=== PATIENT | female | born 1940 | race Caucasian/White ===

== ENCOUNTER → 2018-12-25 | Outpatient (CLI) | payer MEDICARE ==
[~2018-12-25] MED LIST: BACL10; CHOL10002 PO; CONEST.625; CYCL10 PO; DILT120 PO; FISH1000; Hydrocodone-Ap1 EA26 PO; LOSA50 PO; MULVITMINF; NIAC500; OMEP20ER PO; PARO20; Premarin0.45 MG PO; RANI150 PO; SIMV10 PO
== END | disposition home or self-care (01) ==
LOC: LAB EV 15:00 → LAB SHORT 15:00
DX: N39.0 Urinary tract infection, site not specified (principal)
CPT/HCPCS: 87086

== ENCOUNTER 2019-05-21 07:28 | Day surgery (SDC) | payer MEDICARE ==
[2019-05-23 15:02] LABS: Performing Lab SYMBIODX; Test Name TISSUE BLOCK
== END 2019-05-21 23:16 | disposition home or self-care (01) ==
LOC: MOI US 07:28
PROVIDERS: Advanced Practice Midwife
DX: C50.912 Malignant neoplasm of unspecified site of left female breast (principal); Z17.0 Estrogen receptor positive status [ER+]
CPT/HCPCS: 19083; 77065; 88305; 88360; A4648

== ENCOUNTER 2019-06-19 08:33 | Day surgery (SDC) | payer MEDICARE ==
[~2019-06-19] VITALS: Ht 165.1 cm; Wt 59.8 kg
[~2019-06-19 08:33] MED LIST changes: -BACL10; +BACL10 PO; +DULOXETINE HCL20 MG PO; -RANI150 PO; +STOOL SOFTENER PO; +Zantac150 MG PO
--- NOTE | 2019-06-19 09:57 | NUR ---
History, Chart, Medications and Allergies reviewed before start of procedure. Patient confirms NPO status and agrees with scheduled surgery. Lungs clear T/O to Auscultation. Pre-Op teaching done. Pt verbalizes understanding. Patient reports completing Chlorhexadine shower X2 prior to admission to hospital. Patient States Post-Procedure ride home has been arranged.
--- NOTE | 2019-06-19 09:58 | NUR ---
PATIENT LEFT GLASSES AND PARTIAL AT HOME, PER HER REPORT.
--- NOTE | 2019-06-19 10:47 | NUR ---
PATIENT UP FOR UNMEASURED VOID.
--- NOTE | 2019-06-19 12:54 | NUR ---
Patient up to Ambulate independently. Gait steady. Discharge instructions reviewed with patient. Patient verbalizes understanding. Copy given to patient to take home.Lungs clear T/O to Auscultation. Discharged via wheelchair to private car for ride home.
== END 2019-06-19 13:06 | disposition home or self-care (01) ==
LOC: ORSCMMR 08:33
PROVIDERS: Surgery
PROC: 0JH60WZ Insertion of Totally Implantable Vascular Access Device into Chest Subcutaneous Tissue and Fascia, Open Approach (ICD-10-PCS; principal; 2019-06-19 10:45)
DX: C50.412 Malignant neoplasm of upper-outer quadrant of left female breast (principal); E78.5 Hyperlipidemia, unspecified; I10 Essential (primary) hypertension; R73.9 Hyperglycemia, unspecified; K21.9 Gastro-esophageal reflux disease without esophagitis; Z79.899 Other long term (current) drug therapy
CPT/HCPCS: 77001; 93005; 93010; A9270-GY; C1788; J0690; J1100; J1642; J2405; J2704; J3010; J7120

== ENCOUNTER 2019-11-09 07:29 | Day surgery (SDC) | payer MEDICARE | END 2019-11-09 23:31 | disposition home or self-care (01) | LOC: MOI US 07:29 | DX: C50.412 Malignant neoplasm of upper-outer quadrant of left female breast (principal) | CPT/HCPCS: 19285; 77065 ==

== ENCOUNTER 2020-07-16 10:43 | Inpatient (IN) | payer MEDICARE ==
[~2020-07-16] VITALS: Ht 165.1 cm; Wt 54.4 kg
[~2020-07-16 10:43] MED LIST changes: -CHOL10002 PO; +OLAN5; +Questran4 GM; +VITAMIN D31000 UNI1 PO
[2020-07-16 11:43] LABS: BASOPHILS ABSOLUTE AUTO 0.05 K/mm3 (0.00-0.23); BASOPHILS PERCENT AUTO 0 % (0-2); EOSINOPHILS ABSOLUTE AUTO 0.19 K/mm3 (0.00-0.68); EOSINOPHILS PERCENT AUTO 1 % (0-6); Hematocrit 32.4 % (33.0-51.0); Hemoglobin 10.6 g/dL (11.5-16.0); IMMATURE GRAN PERCENT AUTO 2 % (0-1); LYMPHOCYTES PERCENT AUTO 7 % (21-46); MONOCYTES ABSOLUTE AUTO 1.55 K/mm3 (0.16-1.47); MONOCYTES PERCENT AUTO 8 % (4-13); Mean Corpuscular HGB 32.7 pg (26.0-34.0); Mean Corpuscular HGB Conc 32.7 g/dL (31.5-36.5); Mean Corpuscular Volume 100 fL (80-100); Mean Platelet Volume 9.1 fL (9.1-12.4); NEUTROPHILS ABSOLUTE AUTO 15.08 K/mm3 (1.96-9.15); NEUTROPHILS PERCENT AUTO 82 % (41-73); Platelet Count 542 K/mm3 (150-400); RDW Standard Deviation 44.7 fL (35.1-46.3); Red Blood Cell Count 3.24 M/mm3 (3.80-5.20); White Blood Cell Count 18.37 K/mm3 (4.00-11.30)
[2020-07-16 12:15] LABS: Alanine Aminotransfer (ALT/SGP 79 U/L (12-78); Albumin, Blood 2.2 g/dL (3.4-5.0); Albumin/Globulin Ratio 0.4 (0.8-1.8); Alk Phos 177 U/L (50-136); Anion Gap 8 mmol/L (6-16); Aspartate Aminotrans (AST/SGOT 64 U/L (12-37); Bilirubin, Total 0.3 mg/dL (0.1-1.0); Blood Urea Nitrogen 18 mg/dL (8-24); Bun/Creatinine Ratio 22.2 (12.0-20.0); CO2, Blood 26 mmol/L (21-32); Calcium, Blood 9.3 mg/dL (8.5-10.1); Chloride, Blood 98 mmol/L (98-108); Creatinine, Blood 0.81 mg/dL (0.40-1.00); Globulin, Blood 5.4 g/dL (2.2-4.0); Glomerular Filtration Rate >60 (60-); Glucose, Blood 127 mg/dL (70-99); Sodium, Blood 132 mmol/L (136-145); Total Protein, Blood 7.6 g/dL (6.4-8.2)
[2020-07-16 13:09] LABS: Influenza A, PCR Negative (NEGATIVE); Influenza B, PCR Negative (NEGATIVE); Resp Syncytial Virus, PCR Negative (NEGATIVE); SARS-Cov-2 (COVID-19) PCR, MMC Negative (NEGATIVE)
[2020-07-16] MEDS ORDERED: ARIMIDEX1 M1 PO (13:40)
[2020-07-16] MEDS ORDERED: HYDROCODONE-AC1 EA10 PO (13:40)
[2020-07-16] MEDS ORDERED: CYMBALTA30 M1 PO (13:41)
[2020-07-16] MEDS ORDERED: FAMO20 PO (13:41)
--- NOTE | 2020-07-16 18:47 | NUR ---
ASSUMED CARE FROM DEGREASING WHEEL OPERATOR PT ARRIVED ON PCU AT APPROXIMATELY 1800. PT WAS ABLE TO AMBULATE TO THE BATHROOM WITH O2 AT 3L AND WITH EXTENSION CANNULA ATTACHED. PT WAS SOB WHEN RETURNING TO BED AND REQUIRED 5L OF O2 VIA NC TO RECOVER. PT IS NO STABLE SATS MAINTAINED AT 94% AND ABOVE ON 3L VIA NC. VS STABLE. LUNGS ARE CLEAR IN UPPER LOBES AND DIMINISHED BILATERAL LOWER LOBES. PT HAS FINISHED THE 500ML NS BOLUS AND IS NOW SALINE LOCKED. NO VISIBLE EDEMA. 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 PT HAS HISTORY OF BREAST CANCER AND FINISHED TREATMENT 2 WEEKS AGO. PT IS NOW RESTING IN BED
[2020-07-17 04:09] LABS: Hematocrit 33.4 % (33.0-51.0); Hemoglobin 10.5 g/dL (11.5-16.0); Mean Corpuscular HGB 31.9 pg (26.0-34.0); Mean Corpuscular HGB Conc 31.4 g/dL (31.5-36.5); Mean Corpuscular Volume 102 fL (80-100); Mean Platelet Volume 9.4 fL (9.1-12.4); Platelet Count 537 K/mm3 (150-400); RDW Coefficient Variation 12.1 % (11.7-14.2); RDW Standard Deviation 45.1 fL (35.1-46.3); Red Blood Cell Count 3.29 M/mm3 (3.80-5.20); White Blood Cell Count 14.75 K/mm3 (4.00-11.30)
[2020-07-17 04:53] LABS: Anion Gap 6 mmol/L (6-16); Blood Urea Nitrogen 13 mg/dL (8-24); Bun/Creatinine Ratio 20.8 (12.0-20.0); CO2, Blood 30 mmol/L (21-32); Chloride, Blood 100 mmol/L (98-108); Creatinine, Blood 0.63 mg/dL (0.40-1.00); Glomerular Filtration Rate >60 (60-); Glucose, Blood 100 mg/dL (70-99); Potassium, Blood 3.8 mmol/L (3.5-5.5); Sodium, Blood 136 mmol/L (136-145)
--- NOTE | 2020-07-17 05:33 | NUR ---
SHIFT SUMMARY NO ACUTE CHANGES THIS SHIFT. PT A&OX4. SP02>92% ON 3L NC. PT AMBULATED TO BATHROOM BEGINNING OF SHIFT AND WAS SOB, REQUIRING 4L NC TO RECOVER. SWITCHED PT TO BSC W/ SBA W/ NO NEED FOR AN INCREASE OF O2. TELEMETRY READS SR W/ PACS, HR 70'S. PT C/O OF 9/10 CHRONIC BACK PAIN FROM HX OF FX, PT STATES SHE TAKES NORCO AT HOME. CALL PLACED TO MD MCDONOUGH. MD MCDONOUGH W/ ORDERS FOR NORCO, SEE EMAR. PT DID C/O OF DIARRHEA ONCES THIS SHIFT. STATES IT IS A SIDE EFFECT OF HER CANCER TREATMENT AND THAT SHE TAKES A MEDICATION FOR IT, BUT DID NOT KNOW WHAT IT WAS CALLED. PT STATED HER WOULD BRING IT IN IN THE AM. PT DID NOT SLEEP MUCH DURING THE NIGHT, JUST RESTED IN BED, AWAKE. CALL LIGHT IN REACH. WILL GIVE REPORT TO ONCOMING NURSE.
--- NOTE | 2020-07-17 18:25 | NUR ---
SHIFT SUMMARY- PT IS A/O, PLESANT AND COOPERATIVE. SHE IS EATING AND DRINKING WELL. SHE IS USING THE BSC. SHE WORKED WITH PT AND OT THIS SHIFT AND TOLERATED WELL. SHE IS RECIEVING 3L O2 AND MAINTAINING HER SATS. SHE RECIEVED ONE DOSE OF PAIN MEDICATION THIS SHIFT. SHE HAD A VISITOR THIS AFTERNOON.
--- NOTE | 2020-07-17 19:26 | NUR ---
BROUGHT IN HOME MEDICATION. SHE TOOK ONE FOR DIARRHEA. CALLED TO NOTIFY.
[2020-07-18 04:29] LABS: BASOPHILS ABSOLUTE AUTO 0.05 K/mm3 (0.00-0.23); BASOPHILS PERCENT AUTO 0 % (0-2); EOSINOPHILS ABSOLUTE AUTO 0.35 K/mm3 (0.00-0.68); EOSINOPHILS PERCENT AUTO 2 % (0-6); Hematocrit 30.7 % (33.0-51.0); Hemoglobin 9.9 g/dL (11.5-16.0); IMMATURE GRAN ABSOLUTE AUTO 0.17 K/mm3 (0.00-0.10); IMMATURE GRAN PERCENT AUTO 1 % (0-1); LYMPHOCYTES ABSOLUTE AUTO 1.29 K/mm3 (0.84-5.20); LYMPHOCYTES PERCENT AUTO 9 % (21-46); MONOCYTES ABSOLUTE AUTO 1.39 K/mm3 (0.16-1.47); MONOCYTES PERCENT AUTO 9 % (4-13); Mean Corpuscular HGB 32.4 pg (26.0-34.0); Mean Corpuscular HGB Conc 32.2 g/dL (31.5-36.5); Mean Corpuscular Volume 100 fL (80-100); Mean Platelet Volume 9.6 fL (9.1-12.4); NEUTROPHILS ABSOLUTE AUTO 11.97 K/mm3 (1.96-9.15); NEUTROPHILS PERCENT AUTO 79 % (41-73); Platelet Count 490 K/mm3 (150-400); RDW Coefficient Variation 12.3 % (11.7-14.2); RDW Standard Deviation 45.5 fL (35.1-46.3); Red Blood Cell Count 3.06 M/mm3 (3.80-5.20); White Blood Cell Count 15.22 K/mm3 (4.00-11.30)
[2020-07-18 04:54] LABS: Alanine Aminotransfer (ALT/SGP 71 U/L (12-78); Albumin, Blood 1.9 g/dL (3.4-5.0); Albumin/Globulin Ratio 0.4 (0.8-1.8); Alk Phos 159 U/L (50-136); Anion Gap 6 mmol/L (6-16); Aspartate Aminotrans (AST/SGOT 60 U/L (12-37); Bilirubin, Total 0.4 mg/dL (0.1-1.0); Blood Urea Nitrogen 11 mg/dL (8-24); Bun/Creatinine Ratio 17.5 (12.0-20.0); CO2, Blood 29 mmol/L (21-32); Calcium, Blood 8.9 mg/dL (8.5-10.1); Chloride, Blood 101 mmol/L (98-108); Creatinine, Blood 0.63 mg/dL (0.40-1.00); Globulin, Blood 5.3 g/dL (2.2-4.0); Glomerular Filtration Rate >60 (60-); Glucose, Blood 99 mg/dL (70-99); Potassium, Blood 4.4 mmol/L (3.5-5.5); Sodium, Blood 136 mmol/L (136-145); Total Protein, Blood 7.2 g/dL (6.4-8.2)
--- NOTE | 2020-07-18 05:09 | NUR ---
SHIFT SUMMARY NO ACUTE CHANGES THIS SHIFT. PT A&OX4. SP02>92% ON 3L NC. PT DID NOT NEED TO INCREASE 02 REQUIREMENTS THIS SHIFT WHILE AMBULATING TO BSC. TELEMETRY READS SR, HR 70'S-80'S. PT C/O OF BACK/SHOULDER PAIN, MEDICATED W/ NORCO X1. PT UP TO BSC W/ STAND BY ASSIST. PT DID NOT SLEEP WELL/MUCH LAST NIGHT/RESTLESS. CALL LIGHT IN REACH. WILL GIVE REPORT TO ONCOMING SHIFT NURSE.
[2020-07-18] MEDS ORDERED: DIPATR PO (07:29)
--- NOTE | 2020-07-18 11:39 | NUR ---
ADMIT:07/16/20 DISCHARGE: DX: Pneumonia CC: GABINO CALL: RESIDENCE: Home with Spouse CAREGIVER:Srikanth Moran, Spouse / Partner, , Aline (Dean) Caal [phone], Kelle (Dean) Eulalio, Child, , DX: HTN, GERD, chronic pain syndrome, see list DME: none CCM: none HOME HEALTH: none SUMMARY: 07/18/20- per chart review with Dr. Gonzalez, pt could potentially d/c either Tue or Tuesday depending if her oxygen needs resolve. -kjw 1. Extensive airspace opacities in the left lung with air bronchograms consistent with pneumonia. Recommend radiographic follow-up to resolution. 2. Trace left pleural effusion, likely a parapneumonic effusion. 3. Post treatment changes in the left breast and left axilla. 4. No convincing evidence of malignancy or metastatic disease. Sepsis: Presented with leukocytosis, found to be tachypneic on 3 L, hypoxic, also hypotensive in the clinic earlier in the day, likely secondary to community acquired pneumonia, Acute respiratory failure with hypoxia: No history of chronic oxygen supplementation, and with acutely increased requirement likely secondary to left lobe pneumonia Hypotension: Transiently from outpatient vitals, secondary to pneumonia,resolved Community acquired pneumonia: Treat as above Hypertension: Hold off on antihypertensives at this time GERD: Continue Pepcid Transaminitis: Likely secondary to hypoperfusion, monitor for now Hyponatremia: Mild, asymptomatic. Hold off on further work-up at this time, follow BMP Anemia: stable, Macrocytic, will check B12 and folate levels.
--- NOTE | 2020-07-18 11:42 | NUR ---
ADMIT:07/16/20 DISCHARGE: DX: Pneumonia CC: GABINO CALL: RESIDENCE: Home with Spouse CAREGIVER:Srikanth Moran, Spouse / Partner, , Aline (Dean) Caal [phone], Kelle (Dean) Eulalio, Child, , DX: HTN, GERD, chronic pain syndrome, see list DME: none CCM: none HOME HEALTH: none SUMMARY: 07/18/20- per chart review with Dr. Gonzalez, pt could potentially d/c either Tue or Tuesday depending if her oxygen needs resolve. -kjw 1. Extensive airspace opacities in the left lung with air bronchograms consistent with pneumonia. Recommend radiographic follow-up to resolution. 2. Trace left pleural effusion, likely a parapneumonic effusion. 3. Post treatment changes in the left breast and left axilla. 4. No convincing evidence of malignancy or metastatic disease. Sepsis: Presented with leukocytosis, found to be tachypneic on 3 L, hypoxic, also hypotensive in the clinic earlier in the day, likely secondary to community acquired pneumonia, Acute respiratory failure with hypoxia: No history of chronic oxygen supplementation, and with acutely increased requirement likely secondary to left lobe pneumonia Hypotension: Transiently from outpatient vitals, secondary to pneumonia,resolved Community acquired pneumonia: Treat as above Hypertension: Hold off on antihypertensives at this time GERD: Continue Pepcid Transaminitis: Likely secondary to hypoperfusion, monitor for now Hyponatremia: Mild, asymptomatic. Hold off on further work-up at this time, follow BMP Anemia: stable, Macrocytic, will check B12 and folate levels.
--- NOTE | 2020-07-18 13:16 | NUR ---
SUMMARY: 07/18/20- per chart review with Dr. Gonzalez, pt could potentially d/c either Tue or Tuesday depending if her oxygen needs resolve. Spoke with pt about GABINO letter and that she would be getting a call to schedule f/u appt. Pt acknowledged understanding. She brought up that her would like to have O2 in the home. She stated that she has anxiety when she can't breath and has had the O2 on all today. Discussed with her that she would have to have a documented need for insurance to pay. She could pay for it out of pocket if insurance would not cover it. Encouraged her to talk with the doctor about her needs when he goes by to see her. -deana
--- NOTE | 2020-07-18 17:34 | NUR ---
SHIFT SUMMARY: PT IS ALERT AND OREIENTED X4. ON 3 L O2 VIA NASAL CANNULA AND SPO2 READS ABOVE 92%. TELE SHOWING SINUS RHYTHM. PATIENT COMPLAINS OF CHRONIC BACKPAIN, MEDICATED PER EMAR. SOME ANXIETY THIS AM, RELIEVED WITH REASURANCE AND TIME SPENT WITH PATIENT. IV ANTIBIOTICS INFUSED. INCENTIVE SPIROMETER EDUCATION. PTS DAUGHTER IN TO VISIT THIS EVENING. VITAL SIGNS STABLE. NO ACUTE CHANGES THIS SHIFT.
[2020-07-19 04:14] LABS: BASOPHILS ABSOLUTE AUTO 0.05 K/mm3 (0.00-0.23); BASOPHILS PERCENT AUTO 0 % (0-2); EOSINOPHILS ABSOLUTE AUTO 0.39 K/mm3 (0.00-0.68); EOSINOPHILS PERCENT AUTO 2 % (0-6); Hematocrit 29.9 % (33.0-51.0); Hemoglobin 9.6 g/dL (11.5-16.0); IMMATURE GRAN ABSOLUTE AUTO 0.25 K/mm3 (0.00-0.10); IMMATURE GRAN PERCENT AUTO 1 % (0-1); LYMPHOCYTES ABSOLUTE AUTO 1.66 K/mm3 (0.84-5.20); LYMPHOCYTES PERCENT AUTO 10 % (21-46); MONOCYTES ABSOLUTE AUTO 1.44 K/mm3 (0.16-1.47); MONOCYTES PERCENT AUTO 8 % (4-13); Mean Corpuscular HGB 32.3 pg (26.0-34.0); Mean Corpuscular HGB Conc 32.1 g/dL (31.5-36.5); Mean Corpuscular Volume 101 fL (80-100); Mean Platelet Volume 9.1 fL (9.1-12.4); NEUTROPHILS ABSOLUTE AUTO 13.62 K/mm3 (1.96-9.15); NEUTROPHILS PERCENT AUTO 78 % (41-73); Platelet Count 491 K/mm3 (150-400); RDW Coefficient Variation 12.4 % (11.7-14.2); RDW Standard Deviation 45.7 fL (35.1-46.3); Red Blood Cell Count 2.97 M/mm3 (3.80-5.20); White Blood Cell Count 17.41 K/mm3 (4.00-11.30)
--- NOTE | 2020-07-19 05:10 | NUR ---
SHIFT SUMMARY PT IS PLEASENT AND COOPERATIVE WITH CARE. PT STATED HAVING PAIN IN BACK THAT IS CHRONIC, PAIN WAS CONTROLED BY PRN MEDICATIONS AND PT WAS ABLE TO SLEEP. VITALS WERE STABLE AND WNL. ON 3LPM VIA NC WITH O2 SATS >90%, LEFT LUNG WET SOUNDING WITH SLIGHT EXP WHEEZES. PT DOES NOT HAVE IV ACCESS AND IS IN STABLE CONDTION. PT HAD A QUIET UNEVENTFUL NIGHT.
--- NOTE | 2020-07-19 07:53 | NUR ---
PT TO IMAGING
--- NOTE | 2020-07-19 07:53 | NUR ---
TELEPHONE REPORT GIVEN TO GRICEL URBINA ASSUMING CARE OF PATIENT. PLANS TO MOVE PT TO ROOM 226.
--- NOTE | 2020-07-19 16:49 | NUR ---
REPORT RECEIVED FROM JULIETH FLUMER. PT TO UNIT AT ABOUT 0725. UPON ASSESSMENT PT IS IN NO VISABLE DISTRESS, A/O, VSS. ORIENTED TO ROOM, CALL LIGHT IN REACH. WILL CTM
--- NOTE | 2020-07-19 16:53 | NUR ---
SUMMARY: NO ACUTE CHANGE SINCE TRANSFER. VSS, A/O. PT HAS DENIED SOB, STABLE ON 3L 02. INDEPENDENT TO BATHROOM. IV RESTARTED AND ABX GIVEN, SALINE LOCKED AT THIS TIME. PT DID REPORT ITCHY HANDS AND FEET. DR. NAJERA MADE AWARE AND PT GIVEN BENADRYL. NO ACUTE SAFETY CONCERNS AT THIS TIME. WILL MONITOR AND REPORT TO ADRIANA MONSALVE.
[2020-07-20 04:39] LABS: BASOPHILS ABSOLUTE AUTO 0.06 K/mm3 (0.00-0.23); BASOPHILS PERCENT AUTO 0 % (0-2); EOSINOPHILS ABSOLUTE AUTO 0.66 K/mm3 (0.00-0.68); EOSINOPHILS PERCENT AUTO 4 % (0-6); Hemoglobin 9.9 g/dL (11.5-16.0); IMMATURE GRAN PERCENT AUTO 2 % (0-1); LYMPHOCYTES ABSOLUTE AUTO 2.22 K/mm3 (0.84-5.20); LYMPHOCYTES PERCENT AUTO 12 % (21-46); MONOCYTES ABSOLUTE AUTO 1.57 K/mm3 (0.16-1.47); MONOCYTES PERCENT AUTO 9 % (4-13); Mean Corpuscular HGB 32.5 pg (26.0-34.0); Mean Corpuscular HGB Conc 31.9 g/dL (31.5-36.5); Mean Corpuscular Volume 102 fL (80-100); Mean Platelet Volume 9.1 fL (9.1-12.4); NEUTROPHILS ABSOLUTE AUTO 13.52 K/mm3 (1.96-9.15); NEUTROPHILS PERCENT AUTO 74 % (41-73); Platelet Count 550 K/mm3 (150-400); RDW Coefficient Variation 12.6 % (11.7-14.2); RDW Standard Deviation 46.8 fL (35.1-46.3); Red Blood Cell Count 3.05 M/mm3 (3.80-5.20); White Blood Cell Count 18.33 K/mm3 (4.00-11.30)
[2020-07-20 05:09] LABS: Alanine Aminotransfer (ALT/SGP 60 U/L (12-78); Albumin/Globulin Ratio 0.4 (0.8-1.8); Alk Phos 154 U/L (50-136); Anion Gap 7 mmol/L (6-16); Aspartate Aminotrans (AST/SGOT 42 U/L (12-37); Bilirubin, Total 0.5 mg/dL (0.1-1.0); Blood Urea Nitrogen 11 mg/dL (8-24); Bun/Creatinine Ratio 16.5 (12.0-20.0); CO2, Blood 29 mmol/L (21-32); Chloride, Blood 99 mmol/L (98-108); Creatinine, Blood 0.67 mg/dL (0.40-1.00); Globulin, Blood 5.6 g/dL (2.2-4.0); Glomerular Filtration Rate >60 (60-); Glucose, Blood 99 mg/dL (70-99); Sodium, Blood 135 mmol/L (136-145); Total Protein, Blood 7.6 g/dL (6.4-8.2)
[2020-07-20 05:11] LABS: C-REACTIVE PROTEIN, EXT RANGE >19.000 mg/dL (0.000-0.300)
--- NOTE | 2020-07-20 05:31 | NUR ---
SHIFT SUMMARY LYING IN SEMI FOWLERS WITH EYES CLOSED. HAS RESTED WELL THIS SHIFT AFTER BEING GIVEN PAIN MED. SLEEP AID, AND BENADRYL PER PT REQUEST. NO SIGNIFICANT CHANGES NOTED THIS SHIFT. REMAINS AAO X4, [place], FAC. RESPIRATIONS EVEN AND UNLABORED ON O2 AT 2L/NC, ABLE TO MAINTAIN SAT >90%. SL PIV IS PATENT, FLUSING WITH EASE THROUGHOUT SHIFT. IS INDEPENDENT IN ROOM. CURRENTLY DENIES PAIN, DISCOMFORT, OR FURTHER NEEDS. SAFETY MEASURES IN PLACE. WILL CONTINUE TO MONITOR.
--- NOTE | 2020-07-20 14:19 | NUR ---
SUMMARY: 07/20/20- per chart review with Dr. camargo, the pt was tentatively scheduled to go home over the weekend but her need for O2 is what holding her. No est ETA for d/c at this time. -deana
--- NOTE | 2020-07-20 16:21 | NUR ---
SUMMARY: NO ACUTE CHANGE TODAY. VSS, A/O. PT INDEPENDENT IN ROOM. PT CONTINUES ON 2L NC, SP02 ABOVE 90%. REPORTS SOB WITH EXERTION. SPUTUM CULTURE SENT. IV ABX INFUSED. PT REPORTED ITCHING IN HANDS AND FEET AFTER RECEIVING HYDROCODONE. PT DENIES HAVING THIS REACTION WHEN TAKING HYDROCODONE AT HOME. GIVEN BENADRYL PRN. NO SAFETY CONCERNS AT THIS TIME.
[2020-07-21 04:19] LABS: BASOPHILS ABSOLUTE AUTO 0.06 K/mm3 (0.00-0.23); BASOPHILS PERCENT AUTO 0 % (0-2); EOSINOPHILS ABSOLUTE AUTO 0.52 K/mm3 (0.00-0.68); EOSINOPHILS PERCENT AUTO 3 % (0-6); Hematocrit 29.4 % (33.0-51.0); Hemoglobin 9.3 g/dL (11.5-16.0); IMMATURE GRAN ABSOLUTE AUTO 0.29 K/mm3 (0.00-0.10); IMMATURE GRAN PERCENT AUTO 2 % (0-1); LYMPHOCYTES ABSOLUTE AUTO 1.28 K/mm3 (0.84-5.20); LYMPHOCYTES PERCENT AUTO 7 % (21-46); MONOCYTES ABSOLUTE AUTO 1.57 K/mm3 (0.16-1.47); MONOCYTES PERCENT AUTO 9 % (4-13); Mean Corpuscular HGB Conc 31.6 g/dL (31.5-36.5); Mean Corpuscular Volume 101 fL (80-100); Mean Platelet Volume 9.7 fL (9.1-12.4); NEUTROPHILS ABSOLUTE AUTO 13.51 K/mm3 (1.96-9.15); NEUTROPHILS PERCENT AUTO 79 % (41-73); Platelet Count 438 K/mm3 (150-400); RDW Coefficient Variation 12.3 % (11.7-14.2); RDW Standard Deviation 46.7 fL (35.1-46.3); Red Blood Cell Count 2.91 M/mm3 (3.80-5.20); White Blood Cell Count 17.23 K/mm3 (4.00-11.30)
[2020-07-21 04:44] LABS: Alanine Aminotransfer (ALT/SGP 61 U/L (12-78); Albumin, Blood 1.8 g/dL (3.4-5.0); Albumin/Globulin Ratio 0.3 (0.8-1.8); Alk Phos 147 U/L (50-136); Anion Gap 5 mmol/L (6-16); Aspartate Aminotrans (AST/SGOT 56 U/L (12-37); Bilirubin, Total 0.5 mg/dL (0.1-1.0); Blood Urea Nitrogen 11 mg/dL (8-24); CO2, Blood 31 mmol/L (21-32); Calcium, Blood 8.8 mg/dL (8.5-10.1); Chloride, Blood 98 mmol/L (98-108); Creatinine, Blood 0.61 mg/dL (0.40-1.00); Globulin, Blood 5.2 g/dL (2.2-4.0); Glomerular Filtration Rate >60 (60-); Glucose, Blood 108 mg/dL (70-99); Sodium, Blood 134 mmol/L (136-145)
[2020-07-21 04:51] LABS: C-REACTIVE PROTEIN, EXT RANGE >19.000 mg/dL (0.000-0.300)
--- NOTE | 2020-07-21 05:51 | NUR ---
SHIFT SUMMARY SITTING UP IN BED WITH EYES OPEN. HAS RESTED WELL THIS SHIFT AFTER BEING GIVEN PAIN MED. SLEEP AID, AND BENADRYL PER PT REQUEST. NO SIGNIFICANT CHANGES NOTED THIS SHIFT. REMAINS AAO X4, [place], FAC. RESPIRATIONS EVEN AND UNLABORED ON O2 AT 2L/NC, ABLE TO MAINTAIN SAT >90%. SL PIV IS PATENT, FLUSING WITH EASE THROUGHOUT SHIFT. IS INDEPENDENT IN ROOM. CURRENTLY DENIES PAIN, DISCOMFORT, OR FURTHER NEEDS. SAFETY MEASURES IN PLACE. WILL CONTINUE TO MONITOR.
[2020-07-21] MEDS ORDERED: CEFD300 PO (14:08)
[2020-07-21] MEDS ORDERED: LEVOFLOXACIN750 MG PO (14:09)
--- NOTE | 2020-07-21 15:08 | NUR ---
DISCHARGE SUMMARY PT A&OX4, VSS, JOSE PO, VOIDING WELL, AMBULATING IN ROOM AND HALLWAY WITH 2-3L NC FOR EXERTION TO KEEP SATS >90%, DENIES SOB AT REST, TCDB & I.S. EDU & ENC, DEMONSTRATED AND ENC TO CONTINUE PRACTICE AND DOCUMENT AT HOME TO IMPROVE LUNG FUNCTION, FU WITH EFM 1 WK, JOSE BROUGHT IN PORTABLE O2 TANK, WILL MEET PT AND AT HOME, SCRIPTS SENT TO CASANDRA FRANCO/PT GUS TO [facility]. IV DC'D.
== END 2020-07-21 14:55 | disposition home or self-care (01) | DRG 871 ==
LOC: ER 10:43 → PCU 14:43 → SURS 07-19 08:06
PROVIDERS: Emergency Medicine; Family Medicine; ADMIT Internal Medicine
DX: A41.9 Sepsis, unspecified organism (principal); J18.9 Pneumonia, unspecified organism; J96.01 Acute respiratory failure with hypoxia; E87.1 Hypo-osmolality and hyponatremia; Z20.822 Contact with and (suspected) exposure to COVID-19; I10 Essential (primary) hypertension; E78.5 Hyperlipidemia, unspecified; K21.9 Gastro-esophageal reflux disease without esophagitis; M19.90 Unspecified osteoarthritis, unspecified site; D64.9 Anemia, unspecified; I95.9 Hypotension, unspecified; R74.01 Elevation of levels of liver transaminase levels; E88.09 Other disorders of plasma-protein metabolism, not elsewhere classified; R19.7 Diarrhea, unspecified; C50.919 Malignant neoplasm of unspecified site of unspecified female breast; Z92.21 Personal history of antineoplastic chemotherapy; Z79.811 Long term (current) use of aromatase inhibitors
CPT/HCPCS: 0241U; 36415; 71046; 71250; 71260; 80048; 80053; 82607; 82746; 83605; 84145; 85025; 85027; 86140; 87040; 93005; 93010; 94761; 96365; 96366; 96367; 97110; 97116; 97162; 97165; 99285-25; A9270; J0456; J0692; J0696; J1650; J1956; J7030; J7050; Q9967

== ENCOUNTER 2020-07-28 12:02 | Inpatient (IN) | payer MEDICARE ==
[~2020-07-28] VITALS: Ht 170.2 cm; Wt 45.4 kg
[~2020-07-28 12:02] MED LIST changes: +ARIMIDEX1 M1 PO; +CEFD300 PO; +CYMBALTA30 M1 PO; +DIPATR PO; +FAMO20 PO; +HYDROCODONE-AC1 EA10 PO; +LEVOFLOXACIN750 MG PO
[2020-07-28 13:20] LABS: BASOPHILS ABSOLUTE AUTO 0.14 K/mm3 (0.00-0.23); BASOPHILS PERCENT AUTO 1 % (0-2); EOSINOPHILS ABSOLUTE AUTO 0.75 K/mm3 (0.00-0.68); EOSINOPHILS PERCENT AUTO 4 % (0-6); Hematocrit 32.8 % (33.0-51.0); Hemoglobin 10.4 g/dL (11.5-16.0); IMMATURE GRAN ABSOLUTE AUTO 0.79 K/mm3 (0.00-0.10); IMMATURE GRAN PERCENT AUTO 4 % (0-1); LYMPHOCYTES ABSOLUTE AUTO 1.48 K/mm3 (0.84-5.20); LYMPHOCYTES PERCENT AUTO 7 % (21-46); MONOCYTES ABSOLUTE AUTO 1.95 K/mm3 (0.16-1.47); MONOCYTES PERCENT AUTO 9 % (4-13); Mean Corpuscular HGB 31.5 pg (26.0-34.0); Mean Corpuscular HGB Conc 31.7 g/dL (31.5-36.5); Mean Corpuscular Volume 99 fL (80-100); Mean Platelet Volume 9.1 fL (9.1-12.4); NEUTROPHILS ABSOLUTE AUTO 15.76 K/mm3 (1.96-9.15); NEUTROPHILS PERCENT AUTO 76 % (41-73); Platelet Count 511 K/mm3 (150-400); RDW Coefficient Variation 13.1 % (11.7-14.2); RDW Standard Deviation 47.9 fL (35.1-46.3); White Blood Cell Count 20.87 K/mm3 (4.00-11.30)
[2020-07-28 13:38] LABS: Alanine Aminotransfer (ALT/SGP 53 U/L (12-78); Albumin, Blood 1.8 g/dL (3.4-5.0); Albumin/Globulin Ratio 0.3 (0.8-1.8); Alk Phos 161 U/L (50-136); Anion Gap 7 mmol/L (6-16); Aspartate Aminotrans (AST/SGOT 46 U/L (12-37); Bilirubin, Total 0.4 mg/dL (0.1-1.0); Blood Urea Nitrogen 16 mg/dL (8-24); Bun/Creatinine Ratio 20.5 (12.0-20.0); CO2, Blood 30 mmol/L (21-32); Calcium, Blood 8.7 mg/dL (8.5-10.1); Chloride, Blood 97 mmol/L (98-108); Creatinine, Blood 0.78 mg/dL (0.40-1.00); Globulin, Blood 5.9 g/dL (2.2-4.0); Glomerular Filtration Rate >60 (60-); Glucose, Blood 104 mg/dL (70-99); Potassium, Blood 4.5 mmol/L (3.5-5.5); Sodium, Blood 134 mmol/L (136-145); Total Protein, Blood 7.7 g/dL (6.4-8.2); Troponin I <0.015 ng/mL (0.000-0.040)
[2020-07-28 15:00] LABS: Source, Urine Clean Catch
[2020-07-28 15:03] LABS: Appearance, Urine Clear (Clear); Bilirubin, Urine Neg (Neg); Blood, Urine 1+ (Neg); Color, Urine Yellow (P-Yellow); Glucose Qualitative, Urine Neg (Neg); Ketones, Urine Neg (Neg); Leukocyte Esterase, Urine 1+ (Neg); Nitrite, Urine Neg (Neg); Protein, Urine 1+ (Neg); Urobilinogen, Urine NORM (Normal)
[2020-07-28 15:13] LABS: Bacteria Rare /hpf; Red Blood Cells, Urine 0-2 /hpf (0-2); Squamous Epithelial Cells Few /hpf (Few)
[2020-07-28] MEDS ORDERED: OMEP20ER PO (17:20)
[2020-07-28] MEDS ORDERED: ARIMIDEX1 M1 PO (17:20)
[2020-07-28] MEDS ORDERED: HYDROCODONE-AC1 EA10 PO (17:20)
[2020-07-28] MEDS ORDERED: DULO30 PO (17:21)
[2020-07-28] MEDS ORDERED: FAMO20 PO (17:21)
--- NOTE | 2020-07-28 20:46 | NUR ---
80 YR OLD FEMALE WAS ADMITTED TO THE [facility] ON PREVIOUS SHIFT WITH DX OF PNEUMONIA. ALERT AND ORINETD X 4. ORIENTED TO USE OF CALL LIGHT AND BED CONTROL. DISPLAYS ABILITY TO AMBULATE TO AND FROM BATHROOM WITH STEADY GAIT. O2 AT 4L/NC. CALL LIGHT IN REACH
--- NOTE | 2020-07-29 03:34 | NUR ---
SHIFT SUMMARY ADMITTED TO FLOOR YESTERDAY EVENING WITH DX OF PNA. LUNG SOUNDS DIMINISHED BUT NO NOTED COARSE SOUNDS WITH AUSCULTATION. TOLERATED HS MEDS WELL, UP TO BATHROOM WITH O2 PER NC WITHOUT NOTED DISTRESS AD HERBERT. HAS BEEN RESTING QUIETLY WITH FEW INTERRUPTIONS SINCE HS, CALL LIGHT IN REACH
[2020-07-29 04:48] LABS: Hemoglobin 9.5 g/dL (11.5-16.0); Mean Corpuscular HGB 31.6 pg (26.0-34.0); Mean Corpuscular HGB Conc 31.7 g/dL (31.5-36.5); Mean Corpuscular Volume 100 fL (80-100); Mean Platelet Volume 8.9 fL (9.1-12.4); Platelet Count 493 K/mm3 (150-400); RDW Coefficient Variation 13.2 % (11.7-14.2); RDW Standard Deviation 48.8 fL (35.1-46.3); Red Blood Cell Count 3.01 M/mm3 (3.80-5.20); White Blood Cell Count 18.67 K/mm3 (4.00-11.30)
[2020-07-29 05:10] LABS: Alanine Aminotransfer (ALT/SGP 46 U/L (12-78); Albumin, Blood 1.6 g/dL (3.4-5.0); Albumin/Globulin Ratio 0.3 (0.8-1.8); Alk Phos 141 U/L (50-136); Anion Gap 8 mmol/L (6-16); Aspartate Aminotrans (AST/SGOT 47 U/L (12-37); Bilirubin, Total 0.4 mg/dL (0.1-1.0); Blood Urea Nitrogen 15 mg/dL (8-24); Bun/Creatinine Ratio 20.7 (12.0-20.0); CO2, Blood 29 mmol/L (21-32); Calcium, Blood 8.4 mg/dL (8.5-10.1); Chloride, Blood 99 mmol/L (98-108); Creatinine, Blood 0.73 mg/dL (0.40-1.00); Globulin, Blood 5.3 g/dL (2.2-4.0); Glomerular Filtration Rate >60 (60-); Glucose, Blood 101 mg/dL (70-99); Potassium, Blood 4.3 mmol/L (3.5-5.5); Sodium, Blood 136 mmol/L (136-145); Total Protein, Blood 6.9 g/dL (6.4-8.2)
[2020-07-29 14:32] LABS: Adenovirus Not Detected (NOT DETECT); Coronavirus 229E Not Detected (NOT DETECT); Coronavirus HKU1 Not Detected (NOT DETECT); Coronavirus NL63 Not Detected (NOT DETECT); Coronavirus OC43 Not Detected (NOT DETECT)
[2020-07-29 14:33] LABS: Bordetella pertussis Not Detected (NOT DETECT); Chlamydophila pneumoniae Not Detected (NOT DETECT); Human Metapneumovirus Not Detected (NOT DETECT); Human Rhinovirus/Enterovirus Not Detected (NOT DETECT); Influenza A/2009-H1 Not Detected (NOT DETECT); Influenza A/H1 Not Detected (NOT DETECT); Influenza A/H3 Not Detected (NOT DETECT); Influenza B Not Detected (NOT DETECT); Mycoplasma pneumoniae Not Detected (NOT DETECT); Parainfluenza Virus 1 Not Detected (NOT DETECT); Parainfluenza Virus 2 Not Detected (NOT DETECT); Parainfluenza Virus 3 Not Detected (NOT DETECT); Parainfluenza Virus 4 Not Detected (NOT DETECT); Respiratory Syncytial Virus Not Detected (NOT DETECT); SARS-Cov-2 (COVID-19), BioFire Not Detected (NOT DETECT)
--- NOTE | 2020-07-29 16:38 | NUR ---
ADMIT: 07/28/20 DISCHARGE: DX: Pneumonia involving Left lung CC: cpeabody ADMIT:07/16/20 DISCHARGE: 07/21/20 DX: PNEUMONIA CC: KWILCOX GABINO CALL: PT AT HOME RESIDENCE: HOME WITH SPOUSE CAREGIVER: RACIEL FARMER, SPOUSE / PARTNER, , DIMITRY (MARLENY) KEANE [phone], LEAH (MARLENY) MAXIMILIAN, CHILD, , DX:HTN, GERD, CHRONIC PAIN SYNDROME, SEE LIST DME: none CCM: none HOME HEALTH: nonr SUMMARY: Readmit 07/28/20 07/29/[address] Gonzalez today, no eta for discharge at this time. cp 1: Respiratory failure with hypoxia A/P: sats ok with 3-4 L/m did not require oxygen prior to her pneumonia. 2: Pneumonia A/P: Left lower lobe readmit from 07/21. ? aspiration/ATX vs mucous plug vs resistent organism. Plan: Cefepime, oxygen, mucolytics, [facility], , sputum cx, repiratory PCR. 3: Aspiration into airway A/P: 1. water only according to daughter but 2 days prior to admission 2. speech eval.
--- NOTE | 2020-07-29 23:18 | NUR ---
AWAKE ERALIER AT ROUNDING. AFFECT ATTENTIVE, RECEIVED ANALGESIC FOR PAIN - SEE MAR FOR DETAILS. IV MEDICATIONS INFUSING. CALL LIGHT IN REACH
--- NOTE | 2020-07-30 03:45 | NUR ---
SHIFT SUMMARY HAS BEEN RESTING QUIETLY WITH FEW INTERRUPTIONS. UP TO BATHROOM A FEW TIMES TO VOID. O2 PER NC. CALL LIGHT IN REACH. NO NOTED ACUTE DISTRESS THIS SHIFT.
[2020-07-30 04:49] LABS: BASOPHILS ABSOLUTE AUTO 0.11 K/mm3 (0.00-0.23); BASOPHILS PERCENT AUTO 1 % (0-2); EOSINOPHILS ABSOLUTE AUTO 1.23 K/mm3 (0.00-0.68); EOSINOPHILS PERCENT AUTO 7 % (0-6); Hematocrit 28.2 % (33.0-51.0); Hemoglobin 8.9 g/dL (11.5-16.0); IMMATURE GRAN ABSOLUTE AUTO 0.71 K/mm3 (0.00-0.10); IMMATURE GRAN PERCENT AUTO 4 % (0-1); LYMPHOCYTES PERCENT AUTO 11 % (21-46); MONOCYTES ABSOLUTE AUTO 1.71 K/mm3 (0.16-1.47); MONOCYTES PERCENT AUTO 10 % (4-13); Mean Corpuscular HGB 31.3 pg (26.0-34.0); Mean Corpuscular HGB Conc 31.6 g/dL (31.5-36.5); Mean Corpuscular Volume 99 fL (80-100); Mean Platelet Volume 8.8 fL (9.1-12.4); NEUTROPHILS ABSOLUTE AUTO 12.21 K/mm3 (1.96-9.15); NEUTROPHILS PERCENT AUTO 68 % (41-73); Platelet Count 517 K/mm3 (150-400); RDW Coefficient Variation 13.1 % (11.7-14.2); RDW Standard Deviation 47.8 fL (35.1-46.3); Red Blood Cell Count 2.84 M/mm3 (3.80-5.20); White Blood Cell Count 17.87 K/mm3 (4.00-11.30)
[2020-07-30 05:07] LABS: Anion Gap 4 mmol/L (6-16); Blood Urea Nitrogen 14 mg/dL (8-24); Bun/Creatinine Ratio 20.7 (12.0-20.0); CO2, Blood 32 mmol/L (21-32); Calcium, Blood 8.5 mg/dL (8.5-10.1); Chloride, Blood 100 mmol/L (98-108); Creatinine, Blood 0.68 mg/dL (0.40-1.00); Glomerular Filtration Rate >60 (60-); Glucose, Blood 104 mg/dL (70-99); Potassium, Blood 4.2 mmol/L (3.5-5.5); Sodium, Blood 136 mmol/L (136-145)
--- NOTE | 2020-07-30 18:20 | NUR ---
ARE COORDINATION REFERRAL - ADMIT: 07/28/20 DISCHARGE: DX: PNEUMONIA INVOLVING LEFT LUNG CC: CPEABODY ADMIT:07/16/20 DISCHARGE: 07/21/20 DX: PNEUMONIA CC: KWILCOX GABINO CALL: PT AT HOME RESIDENCE: HOME WITH SPOUSE CAREGIVER: RACIEL FARMER, SPOUSE / PARTNER, , DIMITRY (MARLENY) KEANE [phone], LEAH (MARLENY) MAXIMILIAN, CHILD, , DX:HTN, GERD, CHRONIC PAIN SYNDROME, SEE LIST DME: HOME OXYGEN 3 REST 6 EXERTION. [facility] CCM: NONE HOME HEALTH: SUMMARY: READMIT 07/28/20 07/30/20 DR BOBBY TODAY, NO ETA FOR DISCHARGE. DR SHAREE LION, DR VITO MILLAN. UPDATED WHITE BOARD IN ROOM WITH DRS NAMES AND MY NUMBER FOR DISCHARGE PLANNING. MET WITH CLARENCE AND HER TODAY. PLAN IS FOR HER TO RETURN HOME ONCE HER CONDITION IS IMPROVED HAS HOME OXYGEN , MAY HAVE AN ADDITIONAL DX TO GIVE TO [facility] FOR OXYGEN COVERAGE, CURRENTLY PNA DISCUSSED CARE COORDINATION AT DISCHARGE. I WILL FOLLOW HER FOR DICHARGE ARRANGEMENTS. CP 07/29/[address] NAJERA TODAY, NO ETA FOR DISCHARGE AT THIS TIME. CP 1: RESPIRATORY FAILURE WITH HYPOXIA A/P: SATS OK WITH 3-4 L/M DID NOT REQUIRE OXYGEN PRIOR TO HER PNEUMONIA. 2: PNEUMONIA
--- NOTE | 2020-07-30 21:30 | NUR ---
ASSUMED CARE. AOX3, INDEPENDENT IN THE ROOM. LUNG SOUNDS FINE CRACKLES ON THE RIGHT AND CLEAR ON THE LEFT. NO COUGH. DYSPNEA WITH EXERTION. LEFT SHOULDER PAIN, MEDICATED WITH HYDROCODONE. DENIES ANY CHEST PAIN. IV ANTIBOTIC STARTED. PM MEDS GIVEN. ABLE TO USE CALL LIGHT APPROPRIATLY. WILL CONTINUE TO MONITOR.
--- NOTE | 2020-07-31 05:40 | NUR ---
SHIFT SUMMARY: INDEPENDENT IN THE ROOM. HAS SLEPT WELL T/O THE NIGHT. WAS GIVEN PAIN MEDS X1 PRIOR TO BED. HAS BEEN QUIT IN HER ROOM ALL SHIFT, VS WNL. DOES HAVE SMALL TEMP OF 99 THIS AM. LUNG SOUNDS FINE CRACKLES ON THE LEFT SIDE, NO COUGH. ON 3 LITERS OF O2 WITH SATS GREATER THEN 90%. NO OTHER CHANGES OCCURRED THIS SHIFT. CALL LIGHT IS IN REACH.
[2020-07-31 08:11] LABS: BASOPHILS ABSOLUTE AUTO 0.11 K/mm3 (0.00-0.23); BASOPHILS PERCENT AUTO 1 % (0-2); EOSINOPHILS ABSOLUTE AUTO 0.97 K/mm3 (0.00-0.68); EOSINOPHILS PERCENT AUTO 6 % (0-6); Hematocrit 31.6 % (33.0-51.0); Hemoglobin 9.9 g/dL (11.5-16.0); IMMATURE GRAN ABSOLUTE AUTO 0.57 K/mm3 (0.00-0.10); IMMATURE GRAN PERCENT AUTO 4 % (0-1); LYMPHOCYTES ABSOLUTE AUTO 1.83 K/mm3 (0.84-5.20); LYMPHOCYTES PERCENT AUTO 12 % (21-46); MONOCYTES PERCENT AUTO 8 % (4-13); Mean Corpuscular HGB 31.6 pg (26.0-34.0); Mean Corpuscular HGB Conc 31.3 g/dL (31.5-36.5); Mean Corpuscular Volume 101 fL (80-100); Mean Platelet Volume 8.7 fL (9.1-12.4); NEUTROPHILS ABSOLUTE AUTO 10.95 K/mm3 (1.96-9.15); NEUTROPHILS PERCENT AUTO 70 % (41-73); Platelet Count 537 K/mm3 (150-400); RDW Coefficient Variation 13.2 % (11.7-14.2); RDW Standard Deviation 48.6 fL (35.1-46.3); Red Blood Cell Count 3.13 M/mm3 (3.80-5.20); White Blood Cell Count 15.73 K/mm3 (4.00-11.30)
[2020-07-31 08:29] LABS: Vancomycin, Trough 9.3 ug/mL (5.0-10.0)
--- NOTE | 2020-07-31 19:10 | NUR ---
SHIFT SUMMARY MEDICATED FOR PAIN X3 FOR SHOULDERS AND LOW BACK PAIN. MEDIPORT ACCESSED THIS EVENING FOR IV MEDICATIONS. PT'S OXYGEN LEVEL DOWN TO 1L FROM 3L AND PT TOLERATED THIS SHIFT. PT HAS HAD A GOOD APPETITE. NO ACUTE CHANGES AT THIS TIME. REPORT GIVEN TO ADRIANA MONSALVE. CALL LIGHT IN REACH.
--- NOTE | 2020-07-31 20:20 | NUR ---
ASSUMED CARE. CLARENCE IS DOING A LITTLE BETTER TODAY, OXYGEN IS DOWN TO 1 LITER. SHE CONTINUES TO BE NON-PRODUCTIVE, RESP ARE EVEN AND UNLABORED. PAIN IN SHOULDER WAS HIGH THIS AM. DISCUSSED MAKING SURE HER PAIN STAYS STABLE T/O THE NIGHT. LUNG SOUNDS STILL CRACKLES ON THE LEFT SIDE. VS WNL, AFEBRILE. WILL MEDICATE PER EMAR. CALL LIGHT IN REACH.
--- NOTE | 2020-08-01 06:06 | NUR ---
SHIFT SUMMARY: VS WITH INCREASE IN RESPIRATIONS RANGING IN THE MID 20'S SATS HAVE BEEN RANGING ABOVE 90% ON 1LITER. PAIN BETTER CONTROLED WITH USE OF MORPHINE BREAKTHROUGH. SHE WAS ABLE TO SLEEP EXCEPT WHEN USING THE BATHROOM. OFFERED ICE AND HEAT AGAIN FOR THE SHOULDER BUT SHE STATES SHE CAN NOT TOLERATE. MILD TEMP OF 99 NOTED. HAS BEEN QUITE IN ROOM, WITH NO NEEDS OR COMPLAINTS TO NOTE. CALL LIGHT HAS BEEN IN REACH.
[2020-08-01 09:31] LABS: BASOPHILS ABSOLUTE AUTO 0.14 K/mm3 (0.00-0.23); BASOPHILS PERCENT AUTO 1 % (0-2); EOSINOPHILS ABSOLUTE AUTO 1.11 K/mm3 (0.00-0.68); EOSINOPHILS PERCENT AUTO 6 % (0-6); Hemoglobin 10.3 g/dL (11.5-16.0); IMMATURE GRAN ABSOLUTE AUTO 0.67 K/mm3 (0.00-0.10); IMMATURE GRAN PERCENT AUTO 4 % (0-1); LYMPHOCYTES ABSOLUTE AUTO 2.47 K/mm3 (0.84-5.20); LYMPHOCYTES PERCENT AUTO 14 % (21-46); MONOCYTES ABSOLUTE AUTO 1.24 K/mm3 (0.16-1.47); MONOCYTES PERCENT AUTO 7 % (4-13); Mean Corpuscular HGB 31.5 pg (26.0-34.0); Mean Corpuscular HGB Conc 31.2 g/dL (31.5-36.5); Mean Corpuscular Volume 101 fL (80-100); NEUTROPHILS ABSOLUTE AUTO 11.72 K/mm3 (1.96-9.15); NEUTROPHILS PERCENT AUTO 68 % (41-73); Platelet Count 597 K/mm3 (150-400); RDW Coefficient Variation 13.2 % (11.7-14.2); RDW Standard Deviation 49.1 fL (35.1-46.3); Red Blood Cell Count 3.27 M/mm3 (3.80-5.20); White Blood Cell Count 17.35 K/mm3 (4.00-11.30)
[2020-08-01 09:46] LABS: Anion Gap 6 mmol/L (6-16); Blood Urea Nitrogen 12 mg/dL (8-24); CO2, Blood 30 mmol/L (21-32); Calcium, Blood 8.8 mg/dL (8.5-10.1); Chloride, Blood 102 mmol/L (98-108); Creatinine, Blood 0.57 mg/dL (0.40-1.00); Glomerular Filtration Rate >60 (60-); Glucose, Blood 100 mg/dL (70-99); Potassium, Blood 3.8 mmol/L (3.5-5.5); Sodium, Blood 138 mmol/L (136-145); Vancomycin, Trough 13.1 ug/mL (5.0-10.0)
--- NOTE | 2020-08-01 17:27 | NUR ---
SHIFT SUMMARY PATIENT ALERT, ORIENTED, INDEPENDENT IN THE ROOM THIS SHIFT. PATIENT MEDICATED FOR PAIN THROUGHOUT THIS SHIFT. PATIENT LAYING IN BED MOST OF THIS SHIFT. PATIENT COOPERATIVE WITH CARE AND WORKED WITH PT/OT THIS SHIFT. PATIENT'S DAUGHTER IN THE ROOM TO VISIT THIS AFTERNOON. PATIENT REMAINS ON 1L O2. PATIENT SOB WITH EXHURTION. PATIENT CURRENTLY LAYING IN BED AWAITING DINNER.
--- NOTE | 2020-08-01 20:25 | NUR ---
ASSUMED CARE. AOX3, LUNG SOUNDS STILL HAVE CRACKLES ON THE LEFT SIDE BUT THEY ARE IMPROVING. STILL HAS TO BE ON 1 LITER HER SATS ARE ONLY 90% ON IT. ENCOURAGED THE DEEP BREATHING AND INSPIROMETER USE. PAIN IS GOOD AT THIS TIME. SEVERAL LOOSE BM NOTED. CDIFF NEGATIVE, REMOVED ISOLATION. ENCOURAGED HYDRATION TO PREVENT DEHYDRATION. IV ANTIBOTIC HUNG, PM MEDS GIVEN. INDEPENDENT IN THE ROOM. CALL LIGHT IN REACH.
--- NOTE | 2020-08-01 22:06 | NUR ---
ANTIBOTICS COMPLETE, LINE IS FLUSHING NOW. PAIN STARTING TO GO UP. WILL MEDICATE. WATER GIVEN. WILL SL IV.
[2020-08-02 04:36] LABS: BASOPHILS ABSOLUTE AUTO 0.11 K/mm3 (0.00-0.23); BASOPHILS PERCENT AUTO 1 % (0-2); EOSINOPHILS ABSOLUTE AUTO 1.11 K/mm3 (0.00-0.68); EOSINOPHILS PERCENT AUTO 6 % (0-6); Hematocrit 30.1 % (33.0-51.0); Hemoglobin 9.5 g/dL (11.5-16.0); IMMATURE GRAN ABSOLUTE AUTO 0.67 K/mm3 (0.00-0.10); IMMATURE GRAN PERCENT AUTO 4 % (0-1); LYMPHOCYTES ABSOLUTE AUTO 2.49 K/mm3 (0.84-5.20); LYMPHOCYTES PERCENT AUTO 14 % (21-46); MONOCYTES ABSOLUTE AUTO 1.54 K/mm3 (0.16-1.47); MONOCYTES PERCENT AUTO 9 % (4-13); Mean Corpuscular HGB 31.9 pg (26.0-34.0); Mean Corpuscular HGB Conc 31.6 g/dL (31.5-36.5); Mean Corpuscular Volume 101 fL (80-100); Mean Platelet Volume 8.8 fL (9.1-12.4); NEUTROPHILS ABSOLUTE AUTO 11.41 K/mm3 (1.96-9.15); NEUTROPHILS PERCENT AUTO 66 % (41-73); Platelet Count 511 K/mm3 (150-400); RDW Coefficient Variation 13.3 % (11.7-14.2); RDW Standard Deviation 49.1 fL (35.1-46.3); Red Blood Cell Count 2.98 M/mm3 (3.80-5.20); White Blood Cell Count 17.33 K/mm3 (4.00-11.30)
[2020-08-02 04:54] LABS: Alanine Aminotransfer (ALT/SGP 50 U/L (12-78); Albumin, Blood 1.7 g/dL (3.4-5.0); Albumin/Globulin Ratio 0.3 (0.8-1.8); Alk Phos 105 U/L (50-136); Anion Gap 5 mmol/L (6-16); Aspartate Aminotrans (AST/SGOT 37 U/L (12-37); Bilirubin, Total 0.2 mg/dL (0.1-1.0); Blood Urea Nitrogen 13 mg/dL (8-24); Bun/Creatinine Ratio 23.3 (12.0-20.0); CO2, Blood 31 mmol/L (21-32); Calcium, Blood 8.7 mg/dL (8.5-10.1); Chloride, Blood 103 mmol/L (98-108); Creatinine, Blood 0.56 mg/dL (0.40-1.00); Globulin, Blood 5.4 g/dL (2.2-4.0); Glomerular Filtration Rate >60 (60-); Glucose, Blood 98 mg/dL (70-99); Sodium, Blood 139 mmol/L (136-145); Total Protein, Blood 7.1 g/dL (6.4-8.2)
--- NOTE | 2020-08-02 05:49 | NUR ---
SHIFT SUMMARY: SHE SLEPT WELL TONIGHT WITH LITTLE INTERRUPTION. PAIN AVERAGE 4-6, CURRENT TREATMENT COVERS. 1 LOOSE STOOL AT START OF SHIFT NOTED. CDIFF WAS NEGATIVE. ISOLATION REMOVED. VS WNL, AFEBRILE. STILL ON 1 LITER OF O2 UNABLE TO TAKE OFF, GETS DYSPENIC WITH EXERTION, RECOVER LESS THEN 1 MINUTE. NO OTHER ACUTE CHANGES TO REPORT.
[2020-08-02] MEDS ORDERED: ACET325 PO (11:27)
[2020-08-02] MEDS ORDERED: GUAI600T33 PO (11:29)
[2020-08-02] MEDS ORDERED: LEVFLO500 PO (11:30)
[2020-08-02] MEDS ORDERED: VISBIOME 112.51 EACH PO (11:30)
--- NOTE | 2020-08-02 15:10 | NUR ---
PT AOX4 AND COOPERATIVE OF CARE. PT DISCHARGED AT 1455 VIA WHEEL CHAIR TO [facility]. PT WAS ESCORTED OUT BY THIS TICKET TAKER. ALL PAPERWORK WAS REVEIWED, SIGNED AND EDUCATIONAL MATERIAL SENT WITH PT. ALL PERSONAL BELONGINGS COLLECT. NO DISTRESS NOTED. PT WAS AMBULATING ON HER OWN WELL AND DAUGHTER BROUGHT PERSONAL OXYGEN TANK FOR TRIP HOME.
--- NOTE | 2020-08-04 10:24 | NUR ---
SUMMARY: AMBER 07/28/20 08/02/20 DISCHARGED HOME WITH ORAL ANTIBIOTICS AND REDUCED LITER FLOW OF .5-1 L/M TO KEEP SATS IN THE 90'S RESUMED HOME HEALTH WITH [facility]. CP
== END 2020-08-02 15:05 | disposition home or self-care (01) | DRG 193 ==
LOC: ER 12:02 → MEDS 16:25
PROVIDERS: Family Medicine; Internal Medicine; Internal Medicine Critical Care Medicine; Pharmacist; Physician Assistant; ADMIT Family Medicine
DX: J18.9 Pneumonia, unspecified organism (principal); J96.01 Acute respiratory failure with hypoxia; J90 Pleural effusion, not elsewhere classified; E87.1 Hypo-osmolality and hyponatremia; I95.9 Hypotension, unspecified; E78.5 Hyperlipidemia, unspecified; I10 Essential (primary) hypertension; K21.9 Gastro-esophageal reflux disease without esophagitis; M19.90 Unspecified osteoarthritis, unspecified site; C50.912 Malignant neoplasm of unspecified site of left female breast; E86.0 Dehydration; Z20.822 Contact with and (suspected) exposure to COVID-19; R19.7 Diarrhea, unspecified; E88.09 Other disorders of plasma-protein metabolism, not elsewhere classified; R74.01 Elevation of levels of liver transaminase levels; F41.9 Anxiety disorder, unspecified; G89.29 Other chronic pain; D64.9 Anemia, unspecified; Z79.811 Long term (current) use of aromatase inhibitors
CPT/HCPCS: 0202U; 36415; 71046; 80048; 80053; 80202; 81001; 84145; 84484; 85025; 85027; 87040; 87086; 87449; 87493; 92610; 93005; 93010; 94640; 94760; 96366; 96367; 97162; 97165; 97530; 97535; 99285-25; A9270; G0378; J0692; J1642; J1650; J2270; J3370; J7050

== ENCOUNTER 2020-08-08 17:56 | Inpatient (IN) | payer MEDICARE ==
[~2020-08-08] VITALS: Ht 167.6 cm; Wt 53.2 kg
[~2020-08-08 17:56] MED LIST changes: +ACET325 PO; +DULO30 PO; +GUAI600T33 PO; +LEVFLO500 PO; +VISBIOME 112.51 EACH PO
[2020-08-08 18:33] LABS: BASOPHILS PERCENT AUTO 0 % (0-2); EOSINOPHILS ABSOLUTE AUTO 1.69 K/mm3 (0.00-0.68); EOSINOPHILS PERCENT AUTO 6 % (0-6); Hematocrit 30.3 % (33.0-51.0); Hemoglobin 9.8 g/dL (11.5-16.0); IMMATURE GRAN ABSOLUTE AUTO 0.68 K/mm3 (0.00-0.10); IMMATURE GRAN PERCENT AUTO 3 % (0-1); LYMPHOCYTES ABSOLUTE AUTO 2.41 K/mm3 (0.84-5.20); LYMPHOCYTES PERCENT AUTO 9 % (21-46); MONOCYTES ABSOLUTE AUTO 2.16 K/mm3 (0.16-1.47); MONOCYTES PERCENT AUTO 8 % (4-13); Mean Corpuscular HGB 30.9 pg (26.0-34.0); Mean Corpuscular HGB Conc 32.3 g/dL (31.5-36.5); Mean Corpuscular Volume 96 fL (80-100); NEUTROPHILS ABSOLUTE AUTO 20.69 K/mm3 (1.96-9.15); NEUTROPHILS PERCENT AUTO 75 % (41-73); Platelet Count 620 K/mm3 (150-400); RDW Coefficient Variation 13.4 % (11.7-14.2); RDW Standard Deviation 47.7 fL (35.1-46.3); Red Blood Cell Count 3.17 M/mm3 (3.80-5.20); White Blood Cell Count 27.73 K/mm3 (4.00-11.30)
[2020-08-08 18:57] LABS: Magnesium, Blood 1.9 mg/dL (1.6-2.4); Troponin I <0.015 ng/mL (0.000-0.040)
[2020-08-08 18:59] LABS: Alanine Aminotransfer (ALT/SGP 82 U/L (12-78); Albumin, Blood 1.9 g/dL (3.4-5.0); Albumin/Globulin Ratio 0.3 (0.8-1.8); Alk Phos 185 U/L (50-136); Anion Gap 5 mmol/L (6-16); Aspartate Aminotrans (AST/SGOT 121 U/L (12-37); Bilirubin, Total 0.3 mg/dL (0.1-1.0); Blood Urea Nitrogen 18 mg/dL (8-24); Bun/Creatinine Ratio 24.3 (12.0-20.0); CO2, Blood 30 mmol/L (21-32); Calcium, Blood 8.6 mg/dL (8.5-10.1); Chloride, Blood 95 mmol/L (98-108); Creatinine, Blood 0.74 mg/dL (0.40-1.00); Globulin, Blood 6.3 g/dL (2.2-4.0); Glomerular Filtration Rate >60 (60-); Glucose, Blood 98 mg/dL (70-99); Potassium, Blood 4.2 mmol/L (3.5-5.5); Sodium, Blood 130 mmol/L (136-145); Total Protein, Blood 8.2 g/dL (6.4-8.2)
[2020-08-08] MEDS ORDERED: NAPROXEN500 MG PO (20:35)
[2020-08-08] MEDS ORDERED: LOSA50 PO (20:36)
[2020-08-08] MEDS ORDERED: OMEP20ER PO (20:36)
[2020-08-08] MEDS ORDERED: LOMOTIL 2.5-0.1 EACH PO (20:37)
[2020-08-08] MEDS ORDERED: FAMO10 PO (20:38)
[2020-08-08] MEDS ORDERED: VISBIOME 112.51 EACH PO (20:40)
[2020-08-08] MEDS ORDERED: HYDROCODONE-AC1 EA11 PO (23:11)
[2020-08-08] MEDS ORDERED: Levaquin750 MG PO (23:13)
[2020-08-08] MEDS ORDERED: CEFD300 PO (23:14)
--- NOTE | 2020-08-08 23:15 | NUR ---
JOI MACEDO IN ROOM; NOTIFIED THAT PATIENT STILL HAVING PAIN AFTER RECIEVING DOSE OF IV FENTANYL IN ER; ORDERS TO GIVE ANOTHER 25 MCG OF FENTANYL.
--- NOTE | 2020-08-09 | NUR ---
CALLED CHIEF OPERATOR REFORMER REMINGTON TO REPORT PATIENT'S PAIN NOT TOUCHED WITH SECOND DOSE OF IV FENTANYL; NEW ORDERS RECIEVED. ALSO DISCUSSED BOLUS ORDERED IN ED OF LR; HOLD; WAS ED ORDER. PATIENT ALSO HAS ORDER FOR NS AT 75MLS/HR; LUNG SOUNDS COARSE CRACKLES; ORDERS TO CONTINUE IVF DUE TO LOW SODIUM AND POOR APPETITE.
--- NOTE | 2020-08-09 00:55 | NUR ---
PATIENT HAS FALLEN ASLEEP FOR ABOUT FOURTY MINUTES AND WOKE UP STATING PAIN WAS BACK; DISCUSSED PAIN MANAGEMENT OPTIONS AND PATIENT WOULD LIKE TO DRY DIALUDID. REPORTS HELPING; PAIN DROPPED FROM 10 TO 8 AND CONTINUING TO IMPROVE.
--- NOTE | 2020-08-09 01:36 | NUR ---
ASSUMED CARE OF PATIENT AT APPROXIMATELY 2245 FROM ED GRICEL SHAY. PATIENT ARRIVED TO UNIT VIA STRETCHER; TRANSFER VIA SLIDE SHEET AND FOUR STAFF MEMBER FROM ED TO PCU STRETCHER. PATIENT REPORTS PAIN IN RIGHT UPPER BACK AND INTO SHOULDER AT TIMES; PATIENT ALSO REPORT CHRONIC BACK PAIN; SEE PREVIOUS NOTES FOR PAIN UPDATES; REPORTS SHE TAKES NORCO AT HOME AND IT HASNT BEEN HELPING. PATIENT DENIES DIZZINESS OR NAUSEA. NSR ON TELE; OXYGEN SATURATION ABOVE 90% ON 5LPM VIA NC; PATIENT WAS ON 15LPM VIA NRB UPON ARRIVAL TO UNIT. PATIENT VERY DYSPNEIC IN ER; BEDREST; USING BEDPAN; ATTENDS IN PLACE. IVF STARTED PER ORDER. MEDIPORT UNACCESSED; LAST CHEMO/RADIATION TREATMENT WAS ON June; RECENT DISCHARGE FOR SAME DX. ADMISSION COMPLETE. PATIENT CURRENTLY RESTING IN BED; CALL LIGHT IN REACH; BED IN LOWEST POSISTION; BED ALARM ON.
[2020-08-09 04:04] LABS: BASOPHILS ABSOLUTE AUTO 0.08 K/mm3 (0.00-0.23); BASOPHILS PERCENT AUTO 0 % (0-2); EOSINOPHILS ABSOLUTE AUTO 1.76 K/mm3 (0.00-0.68); EOSINOPHILS PERCENT AUTO 7 % (0-6); Hematocrit 28.4 % (33.0-51.0); Hemoglobin 9.1 g/dL (11.5-16.0); IMMATURE GRAN PERCENT AUTO 2 % (0-1); LYMPHOCYTES ABSOLUTE AUTO 1.56 K/mm3 (0.84-5.20); LYMPHOCYTES PERCENT AUTO 6 % (21-46); MONOCYTES ABSOLUTE AUTO 1.76 K/mm3 (0.16-1.47); MONOCYTES PERCENT AUTO 7 % (4-13); Mean Corpuscular HGB 31.2 pg (26.0-34.0); Mean Corpuscular Volume 97 fL (80-100); Mean Platelet Volume 8.5 fL (9.1-12.4); NEUTROPHILS ABSOLUTE AUTO 19.57 K/mm3 (1.96-9.15); NEUTROPHILS PERCENT AUTO 78 % (41-73); Platelet Count 537 K/mm3 (150-400); RDW Coefficient Variation 13.6 % (11.7-14.2); RDW Standard Deviation 48.4 fL (35.1-46.3); Red Blood Cell Count 2.92 M/mm3 (3.80-5.20); White Blood Cell Count 25.23 K/mm3 (4.00-11.30)
[2020-08-09 04:20] LABS: Alanine Aminotransfer (ALT/SGP 56 U/L (12-78); Albumin, Blood 1.6 g/dL (3.4-5.0); Albumin/Globulin Ratio 0.3 (0.8-1.8); Alk Phos 153 U/L (50-136); Anion Gap 5 mmol/L (6-16); Aspartate Aminotrans (AST/SGOT 50 U/L (12-37); Bilirubin, Total 0.3 mg/dL (0.1-1.0); Blood Urea Nitrogen 14 mg/dL (8-24); CO2, Blood 30 mmol/L (21-32); Calcium, Blood 8.4 mg/dL (8.5-10.1); Chloride, Blood 100 mmol/L (98-108); Globulin, Blood 5.5 g/dL (2.2-4.0); Glomerular Filtration Rate >60 (60-); Glucose, Blood 113 mg/dL (70-99); Potassium, Blood 4.3 mmol/L (3.5-5.5); Sodium, Blood 135 mmol/L (136-145); Total Protein, Blood 7.1 g/dL (6.4-8.2)
--- NOTE | 2020-08-09 06:18 | NUR ---
PATIENT SLEPT WELL AFTER THE 1MG OF DILAUDID. VSS. NO ACUTE CHANGES TO REPORT.
[2020-08-09 11:11] LABS: International Normalized Ratio 1.12; Prothrombin Time Results 11.9 Sec (9.7-11.5)
--- NOTE | 2020-08-09 17:20 | NUR ---
SHIFT SUMMARY NO ACUTE EVENTS THIS SHIFT, VSS. PATIENT ON O2 VIA NASAL CANNULA 3-5 L, PATIENT WOULD DESAT TO MID 80S WHILE TAKING MEDICATIONS, OTHERWISE MAINTAINING O2 SATS IN LOW TO MID 90S. DR. SABILLON SAW PATIENT AT BEDSIDE, PLAN IS FOR THORACENTESIS TOMORROW AND CULTURE OF BODY FLUID. PATIENT ON 3 L NASAL CANNULA AT HOME SINCE LAST DISCHARGE IN JUNE OF THIS YEAR. VISIBLE WORK OF BREATHING NOTED BETWEEN DRINKS OF WATER. PATIENT USED BEDPAN THIS SHIFT D/T WORK OF BREATHING AND WEAKNESS. PATIENT ALERT AND ORIENTED, COOPERATIVE WITH CARE. PATIENT COMPLAINED OF 10/10 BACK/SHOULDER PAIN, RELIEF NOTED WITH DILAUDID.
--- NOTE | 2020-08-09 23:58 | NUR ---
ASSUMED CARE OF PATIENT AT APPROXIMATELY 1915 FROM [employer] Ray RN. PATIENT REPORTS PAIN IN RIGHT UPPER BACK AND INTO SHOULDER AT TIMES; PATIENT ALSO REPORT CHRONIC BACK PAIN; DURING BEDSIDE REPORT PATIENT REPORTS PAIN IS TOLERABLE AND SHE FEELS MORE COMFORTABLE AT A 7 AFTER RECIEVING DILAUDID. PATIENT DENIES DIZZINESS OR NAUSEA. NSR ON TELE; OXYGEN SATURATION ABOVE 90% ON 5LPM VIA NC; PATIENT OXYGEN SATURATION DROPS WHEN TAKING PILLS AT TIMES OR WITH EXCERTION; BEDREST; TURNS SELF IN BED; BEDPAN. IVF INFUSING PER ORDER. PATIENT CURRENTLY RESTING IN BED; CALL LIGHT IN REACH; BED IN LOWEST POSISTION; BED ALARM ON.
--- NOTE | 2020-08-10 01:58 | NUR ---
BIPAP: AT APPROXIMATELY 0130 PATIENT CALLED AND REPORTED THAT SHE NEED TO GO USE BEDPAN; PATIENT REPORTED TO PCT THAT SHE NEEDED PAIN MEDICATION. PATIENT SITTING UP IN BED; OXYGEN SATURATION DROPPING INTO LOW 80'S; RT CALLED FOR HIGH FLOW NC; PATIENT L/S CRACKLES AND COARSE T/O; PATIENT PLACED ON BIPAP; FLUIDS STOPPED. DR. VELASCO UPDATED AND FLUIDS D/C'D. PATIENT TOLERATING BIPAP; DIALUDID GIVEN TWICE THIS SHIFT.
[2020-08-10 04:10] LABS: BASOPHILS ABSOLUTE AUTO 0.07 K/mm3 (0.00-0.23); BASOPHILS PERCENT AUTO 0 % (0-2); EOSINOPHILS ABSOLUTE AUTO 1.58 K/mm3 (0.00-0.68); EOSINOPHILS PERCENT AUTO 7 % (0-6); Hematocrit 28.5 % (33.0-51.0); Hemoglobin 8.9 g/dL (11.5-16.0); IMMATURE GRAN ABSOLUTE AUTO 0.61 K/mm3 (0.00-0.10); IMMATURE GRAN PERCENT AUTO 3 % (0-1); LYMPHOCYTES ABSOLUTE AUTO 1.37 K/mm3 (0.84-5.20); LYMPHOCYTES PERCENT AUTO 6 % (21-46); MONOCYTES ABSOLUTE AUTO 1.82 K/mm3 (0.16-1.47); MONOCYTES PERCENT AUTO 8 % (4-13); Mean Corpuscular HGB 30.7 pg (26.0-34.0); Mean Corpuscular HGB Conc 31.2 g/dL (31.5-36.5); Mean Corpuscular Volume 98 fL (80-100); Mean Platelet Volume 8.4 fL (9.1-12.4); NEUTROPHILS ABSOLUTE AUTO 18.75 K/mm3 (1.96-9.15); NEUTROPHILS PERCENT AUTO 78 % (41-73); Platelet Count 550 K/mm3 (150-400); RDW Standard Deviation 50.3 fL (35.1-46.3)
[2020-08-10 04:34] LABS: Alanine Aminotransfer (ALT/SGP 52 U/L (12-78); Albumin, Blood 1.6 g/dL (3.4-5.0); Albumin/Globulin Ratio 0.3 (0.8-1.8); Alk Phos 169 U/L (50-136); Anion Gap 2 mmol/L (6-16); Aspartate Aminotrans (AST/SGOT 42 U/L (12-37); Bilirubin, Total 0.4 mg/dL (0.1-1.0); Blood Urea Nitrogen 14 mg/dL (8-24); CO2, Blood 29 mmol/L (21-32); Calcium, Blood 8.6 mg/dL (8.5-10.1); Chloride, Blood 103 mmol/L (98-108); Creatinine, Blood 0.61 mg/dL (0.40-1.00); Globulin, Blood 5.7 g/dL (2.2-4.0); Glomerular Filtration Rate >60 (60-); Glucose, Blood 111 mg/dL (70-99); Sodium, Blood 134 mmol/L (136-145); Total Protein, Blood 7.3 g/dL (6.4-8.2)
--- NOTE | 2020-08-10 07:30 | NUR ---
ASSUMED CARE: PT ON BIPAP / WITH 50% FIO2. SOB AT TIMES WITH EXERTION AND EXERTIONAL CHEST PAIN. PLAN IS FOR THORACENTESIS TODAY. RT AND TEST DEVELOPER AT BEDSIDE
[2020-08-10 09:44] LABS: Vancomycin, Trough 11.1 ug/mL (5.0-10.0)
[2020-08-10 13:16] LABS: Automated BF WBC Count 0.812 K/mm3 (0-999); Body Fluid WBC Count 812 /mm3 (0-999)
--- NOTE | 2020-08-10 13:17 | NUR ---
ULTRASOUND GUIDED THORACENTESIS COMPLETED AT BEDSIDE BY RADIOLOGIST. PT WAS PLACED ON 15L NRB DURING PROCEDURE AND SATURATIONS MAINTAINED IN LOW TO MID 90S WITH THIS. 550CC FLUID REMOVED AND TAKEN BY HAND TO LAB. AFTERWARDS, PT WAS PLACED BACK ON NC AT 6L SATTING LOW 90S. LUNG SOUNDS LESS COARSE BILATERAL BASES. MEDICATED FOR PAIN. NO FURTHER NEEDS OR CONCERNS AT THIS TIME.
[2020-08-10 13:27] LABS: Glucose, Body Fluid 109 mg/dL; Lactate Dehydrogenase, Body Fl 88 U/L; Protein, Body Fluid 3.8 g/dL
[2020-08-10 13:28] LABS: pH, Body Fluid 7.5
[2020-08-10 13:34] LABS: RBC Count, Body Fluid 331 /mm3 (0-0)
[2020-08-10 13:38] LABS: Appearance, Body Fluid Hazy (Clear); Color, Body Fluid L Yellow (None-Yellow)
[2020-08-10 13:43] LABS: Cholesterol, Body Fluid 59 mg/dL
[2020-08-10 13:48] LABS: Total Cell Count, Body Fluid 100
--- NOTE | 2020-08-10 18:35 | NUR ---
SHIFT SUMMARY: DR KINCAID HAS BEEN CHECKING ON PT T/O DAY. PT TOLD HIM SHE HAD NEW PAIN AFTER THORACENTESIS SO CXR WAS ORDERED WITH NO CHANGES TO XRAY. DR KINCAID AWARE. ALSO AWARE THAT PT'S WORK OF BREATHING AND SAT HAVE NOT CHANGED AND THAT PT REQUIRED FREQUENT DOSES OF DILAUDID YESTERDAY. MEDICATED FOR PAIN X3 TODAY. CURRENTLY ON 4L NC SATTING MID 90S. DAUGHTER WAS AT BEDSIDE TODAY. NO FURTHER NEEDS OR CONCERNS AT THIS TIME.
[2020-08-11 04:15] LABS: BASOPHILS ABSOLUTE AUTO 0.07 K/mm3 (0.00-0.23); BASOPHILS PERCENT AUTO 0 % (0-2); EOSINOPHILS ABSOLUTE AUTO 1.48 K/mm3 (0.00-0.68); EOSINOPHILS PERCENT AUTO 7 % (0-6); Hematocrit 29.2 % (33.0-51.0); Hemoglobin 9.2 g/dL (11.5-16.0); IMMATURE GRAN ABSOLUTE AUTO 0.62 K/mm3 (0.00-0.10); IMMATURE GRAN PERCENT AUTO 3 % (0-1); LYMPHOCYTES PERCENT AUTO 8 % (21-46); MONOCYTES ABSOLUTE AUTO 1.84 K/mm3 (0.16-1.47); MONOCYTES PERCENT AUTO 8 % (4-13); Mean Corpuscular HGB 30.7 pg (26.0-34.0); Mean Corpuscular HGB Conc 31.5 g/dL (31.5-36.5); Mean Corpuscular Volume 97 fL (80-100); Mean Platelet Volume 8.7 fL (9.1-12.4); NEUTROPHILS ABSOLUTE AUTO 16.98 K/mm3 (1.96-9.15); NEUTROPHILS PERCENT AUTO 75 % (41-73); Platelet Count 567 K/mm3 (150-400); RDW Coefficient Variation 14.1 % (11.7-14.2); White Blood Cell Count 22.69 K/mm3 (4.00-11.30)
--- NOTE | 2020-08-11 06:43 | NUR ---
SHIFT SUMMARY PT IS PLEASENT AND ALERT AND ORIENTED. PT'S IS ON 7L OXYGEN AND SAT'S AT >88%. SR @ 88. PT REPORTED PAIN IN UPPER BACK LAST NIGHT RANGING FROM 5-10. SHE DESATS WITH ACTIVITY. BEDREST AND BEDPAN. PATIENT HAS A HARD TIME SWALLOWING LARGE PILLS.
--- NOTE | 2020-08-11 18:07 | NUR ---
SHIFT SUMMARY: NO ACUTE CHANGES T/OUT SHIFT. PT A&O, ANXIOUS AND WEAK. PT CONTINUES ON HUMIDIFIED O2 VIA HIFLO NC AT 7 L/MIN, DENIES INCREASE IN SOB. SR ON MONITOR. PT C/O L UPPER BACK/SHOULDER PAIN AND REQUIRING PRN PAIN MEDICATION COVERAGE. PT REFUSED TO WORK WITH PT/OT TODAY, EVEN AFTER BEING EDUCATED RE: BENEFIT OF PARTICIPATION. PT ADMISSION STATUS CHANGED, RECEIVED MEDICAL DEPT ROOM ASSIGNMENT, REPORT HAS BEEN GIVEN TO GRICEL LOCKE.
--- NOTE | 2020-08-12 04:33 | NUR ---
SHIFT SUMMARY A/O, ABLE TO MAKE NEEDS KNOWN. COOPERATIVE WITH CARE. CALLS AND ANSWERS QUESTIONS APPROPRIATELY. C/O PAIN/DISCOMFORT GENERALIZED AND THEN TO BILATERAL SHOULDERS; MEDICATED PER EMAR. REMAINS ON 8L O2 VIA HFNC; LS VERY COARSE T/O. RT INVOLVED IN CARE. REQUIRING MEDICATIONS CRUSHED IN APPLESAUCE; STATES MUCH EASIER. FREELY MOVES IN BED; HOWEVER NEEDS HELP WITH ADJUSTMENTS AT TIMES. MATTRESS PAD FOR COMFORT. ABX INFUSED WITHOUT COMPLICATIONS TO PG. VSS/AFEBRILE. NO OTHER ACUTE CHANGES NOTED. BED REMAINS IN LOWEST POSITION. CALL LIGHT AND BELONGINGS WITHIN REACH. CONTINUE WITH CURRENT PLAN OF CARE. REPORT TO ONCOMING RN.
[2020-08-12 06:08] LABS: BASOPHILS PERCENT AUTO 0 % (0-2); EOSINOPHILS ABSOLUTE AUTO 1.78 K/mm3 (0.00-0.68); EOSINOPHILS PERCENT AUTO 7 % (0-6); Hematocrit 24.7 % (33.0-51.0); IMMATURE GRAN ABSOLUTE AUTO 1.08 K/mm3 (0.00-0.10); IMMATURE GRAN PERCENT AUTO 4 % (0-1); LYMPHOCYTES ABSOLUTE AUTO 1.79 K/mm3 (0.84-5.20); LYMPHOCYTES PERCENT AUTO 7 % (21-46); MONOCYTES ABSOLUTE AUTO 2.26 K/mm3 (0.16-1.47); MONOCYTES PERCENT AUTO 9 % (4-13); Mean Corpuscular HGB 31.3 pg (26.0-34.0); Mean Corpuscular HGB Conc 32.4 g/dL (31.5-36.5); Mean Corpuscular Volume 97 fL (80-100); Mean Platelet Volume 8.8 fL (9.1-12.4); NEUTROPHILS ABSOLUTE AUTO 19.52 K/mm3 (1.96-9.15); NEUTROPHILS PERCENT AUTO 74 % (41-73); Platelet Count 519 K/mm3 (150-400); RDW Coefficient Variation 14.1 % (11.7-14.2); Red Blood Cell Count 2.56 M/mm3 (3.80-5.20); White Blood Cell Count 26.53 K/mm3 (4.00-11.30)
[2020-08-12 06:17] LABS: Alanine Aminotransfer (ALT/SGP 73 U/L (12-78); Albumin, Blood 1.4 g/dL (3.4-5.0); Albumin/Globulin Ratio 0.2 (0.8-1.8); Alk Phos 168 U/L (50-136); Anion Gap 5 mmol/L (6-16); Aspartate Aminotrans (AST/SGOT 74 U/L (12-37); Bilirubin, Total 0.3 mg/dL (0.1-1.0); Blood Urea Nitrogen 16 mg/dL (8-24); Bun/Creatinine Ratio 25.4 (12.0-20.0); CO2, Blood 27 mmol/L (21-32); Calcium, Blood 8.4 mg/dL (8.5-10.1); Chloride, Blood 103 mmol/L (98-108); Creatinine, Blood 0.63 mg/dL (0.40-1.00); Globulin, Blood 5.6 g/dL (2.2-4.0); Glomerular Filtration Rate >60 (60-); Glucose, Blood 94 mg/dL (70-99); Magnesium, Blood 1.6 mg/dL (1.6-2.4); Potassium, Blood 4.1 mmol/L (3.5-5.5); Sodium, Blood 135 mmol/L (136-145)
[2020-08-12 09:49] LABS: Vancomycin, Trough 13.6 ug/mL (5.0-10.0)
--- NOTE | 2020-08-12 18:18 | NUR ---
PT REQUIRING 8 L 02 TO MAINTAIN 88% PT USES BED DIEHL. DILAUDID FOR PAIN NEEDED. PT HAS NON PRODUCTIVE COUGH, CRACKLES IN BASES. DAUGHTER AT BEDSIDE. PT TO TRANSFER TO PCU THIS EVENING. CALL LIGHT WITHIN REACH.
--- NOTE | 2020-08-12 20:07 | NUR ---
PT medicaTED WITH 1 MG iv DILAUDID FOR co LT PLEURIC PAIN 04/05. hELPFUL EFFECT OF NARCOTIC. dtr AT BEDSIDE SUPPORTIVE. PT was transferred to PCU by Emilia MONSALVE who cared for PT all day. PT on bioxx 10 l high flow oxygen.
--- NOTE | 2020-08-12 20:08 | NUR ---
CARE ASSUMPTION PT ARRIVED TO FLOOR ON 1OL O2 HI-FLOW NC W O2 SATS AT 89-90. O2 TURNED UP TO 15L W O2 SATS AT 91 AND R/T CONTACTED TO GET BIPAP IN PT'S RM AND IS AT BEDSIDE NOW. PT IS CONFUSED AND LOOSES TRAIN OF THOUGHT EASILY. WCTM.
--- NOTE | 2020-08-13 04:37 | NUR ---
QA ENGINEER SUMMARY PT ARRIVED TO THE FLOOR ON 10L HI FLOW O2 BUT WAS NOT ABLE TO MAINTAIN O2 SATS >90% SO R/T WAS CONTACTED AND PT PLACED ON BIPAP. PT HAS MAINTAINED O2 SATS >94% ON BIPAP BUT HAS REMIANINED TACHYPNENIC W RR 28-34. PT CONTINUING TO HAVE PAIN IN HER L SHOULDER AND WAS MEDICATED PER EMAR. THE PT HAS BEEN CONFUSED SINCE ARRIVING TO THE FLOOR EVEN TALKING TO HERSELF AT TIMES. PT HAS BEEN AWAKE FOR MOST OF THE SHIFT DUE TO DISCOMFORT OF BIPAP MASK. PT HAS BEEN SINUS TACH IN THE 100'S.WCTM.
[2020-08-13 04:58] LABS: Hematocrit 25.3 % (33.0-51.0); Hemoglobin 8.2 g/dL (11.5-16.0); Mean Corpuscular HGB 30.9 pg (26.0-34.0); Mean Corpuscular HGB Conc 32.4 g/dL (31.5-36.5); Mean Corpuscular Volume 96 fL (80-100); Platelet Count 500 K/mm3 (150-400); RDW Coefficient Variation 14.4 % (11.7-14.2); RDW Standard Deviation 50.2 fL (35.1-46.3); Red Blood Cell Count 2.65 M/mm3 (3.80-5.20); White Blood Cell Count 26.64 K/mm3 (4.00-11.30)
[2020-08-13 05:30] LABS: BAND PERCENT MAN 1 % (0-8); BASOPHILS PERCENT MAN 0 % (0-2); EOSINOPHILS ABSOLUTE MAN 0.53 K/mm3 (0.00-0.68); EOSINOPHILS PERCENT MAN 2 % (0-6); LYMPHOCYTES ABSOLUTE MAN 2.39 K/mm3 (0.84-5.20); LYMPHOCYTES PERCENT MAN 9 % (21-46); METAMYELOCYTE ABSOLUTE MAN 0.26 K/mm3 (0.00-0.00); METAMYELOCYTE PERCENT MAN 1 % (0-0); MONOCYTES ABSOLUTE MAN 1.86 K/mm3 (0.16-1.47); MONOCYTES PERCENT MAN 7 % (4-13); MYELOCYTE ABSOLUTE MAN 1.06 K/mm3 (0.00-0.00); MYELOCYTE PERCENT MAN 4 % (0-0); NEUTROPHILS ABSOLUTE MAN 20.51 K/mm3 (1.96-9.15); SEG NEUTROPHILS PERCENT MAN 76 % (41-73); TOTAL CELLS COUNTED 100
[2020-08-13 05:31] LABS: Anion Gap 5 mmol/L (6-16); Blood Urea Nitrogen 17 mg/dL (8-24); Bun/Creatinine Ratio 27.2 (12.0-20.0); CO2, Blood 27 mmol/L (21-32); Calcium, Blood 7.9 mg/dL (8.5-10.1); Chloride, Blood 103 mmol/L (98-108); Creatinine, Blood 0.62 mg/dL (0.40-1.00); Glomerular Filtration Rate >60 (60-); Glucose, Blood 110 mg/dL (70-99); Magnesium, Blood 1.5 mg/dL (1.6-2.4); Sodium, Blood 135 mmol/L (136-145)
--- NOTE | 2020-08-13 15:59 | NUR ---
08/13/20- per chart review with Dr. Unger, pt has not improved. She was transferred from the medical floor to PCU on BiPap. Engineer's notes stated that if pt's breathing worsens, she will be moved to ICU with possibility of intubation and bronchoscopy. -deana
--- NOTE | 2020-08-13 18:09 | NUR ---
PT SUMMARY; PT REMAINS A&OX3, FORGETFUL AT TIMES. VITALS HRR ST 90-100'S, BP SYSTOLIC 115'S, AFEBRILE. PT COMPLIANT ON BIPAP SATS ABOVE 92% 14/6 FIO2 WAS DONE TO 60% FROM 90% THIS AM ALTERNATING NASAL CANNULA HI JONH AT 15L PT DESATS TO 87-88% WITH EXERTION OR FALLING ASLEEP. DR VELAZQUEZ SAW PT TODAY TO MONITOR PT FOR TODAY AND SEE HOW PT IMPROVE WITH HER BREATHING IF WORSENS TO POSSIBLY TRANSFER TO ICU FOR BRONCHOSCOPY PROCEDURE/INTUBATION. PT HAS LEFT SHOULDER/LEFT PLEURITIC CHEST PAIN DILAUDID 0.5MG GIVEN FOR THE SHIFT X2 AND WAS EFFECTIVE. PT RECEIVED A BED BATH TODAY TOLERATED ROLLING AND TURNING IN BED, USES BED DIEHL FOR TOILETING HAD 2 NORMAL BM'S, ADEQUATE FOOD INTAKE. PT RESTING IN BED AT THIS TIME ON BIPAP, WAS IN TO VISIT DURING VISITING HRS, DAUGHTER CALLED AND UPDATED REGARDING PT'S STATUS. NO OTHER ISSUES AT THIS TIME, PT ABLE TO MAKE NEEDS KNOWN, CALLS APPROPRIATELY, CALL LIGHTS IN REACH WILL MONITOR UNTIL END OF SHIFT
--- NOTE | 2020-08-14 03:27 | NUR ---
SHIFT ASSESSMENT PT IS PLEASANT, A/O X4. VITALS ARE STABLE NO REPORT OF CHEST PAIN OR SHORTNESS OF BREATH. PT REPORTED ITCHY ON ARMS AND WAS ASKED OF SHE THOUGHT IT COULD BE A POSSIBLE ALLERGY AND STATED "DRY SKIN." PT ON TELE SR @ >80'S-90'S. ON BIPAP 14/6 AND 50% FIO2. HAS TOLERATED PAIN WELL THROUGHOUT THE NIGHT WAS GIVEN 0.5MG OF DILAUDID WITH PAIN OF 9 AND RELIVED TO 1 WHEN REASSESED. PT BEDREST AND USES BEDPAN WITH MINIMAL ASSIST.
[2020-08-14 05:11] LABS: BASOPHILS ABSOLUTE AUTO 0.07 K/mm3 (0.00-0.23); BASOPHILS PERCENT AUTO 0 % (0-2); EOSINOPHILS ABSOLUTE AUTO 0.02 K/mm3 (0.00-0.68); EOSINOPHILS PERCENT AUTO 0 % (0-6); Hematocrit 37.3 % (33.0-51.0); Hemoglobin 11.9 g/dL (11.5-16.0); IMMATURE GRAN ABSOLUTE AUTO 0.92 K/mm3 (0.00-0.10); IMMATURE GRAN PERCENT AUTO 5 % (0-1); LYMPHOCYTES ABSOLUTE AUTO 1.39 K/mm3 (0.84-5.20); LYMPHOCYTES PERCENT AUTO 7 % (21-46); MONOCYTES ABSOLUTE AUTO 1.04 K/mm3 (0.16-1.47); MONOCYTES PERCENT AUTO 5 % (4-13); Mean Corpuscular HGB 30.1 pg (26.0-34.0); Mean Corpuscular HGB Conc 31.9 g/dL (31.5-36.5); Mean Corpuscular Volume 94 fL (80-100); Mean Platelet Volume 9.1 fL (9.1-12.4); NEUTROPHILS ABSOLUTE AUTO 17.15 K/mm3 (1.96-9.15); NEUTROPHILS PERCENT AUTO 83 % (41-73); Platelet Count 397 K/mm3 (150-400); RDW Standard Deviation 48.6 fL (35.1-46.3); Red Blood Cell Count 3.96 M/mm3 (3.80-5.20); White Blood Cell Count 20.59 K/mm3 (4.00-11.30)
--- NOTE | 2020-08-14 07:31 | NUR ---
Bedside report received from Rossana Guzmán RN. PT is awake, wearing hi chloe nasal cannula, delivery at 12 l/min and spo2 91-94% at rest. She does not appear to be short of breath, but states that she feels anxious and doesn't feel like her breathing is that good. RR 22-24/min. States she hopes to not need the bipap much more. Able to complete full sentences during conversation. Also, with use of bedpan with assist spo2 drops to 82%. Pt had continence of urine and large formed brown stool. Complaining of itching palms of hands. Pt states that she is allergic to adhesive. Noted pt has no visible adhesive on her arms except for the powerglide dressing upper right arm; however, a pink Allevyn was noted and removed from her sacrum. There was no visible redness and pt had no itching of the sacral area, just her hands. She states that the itching of her hands happened before when she was hospitalized, and it was relieved with benadryl liquid taken by mouth.
--- NOTE | 2020-08-14 07:59 | NUR ---
Given NOrco in applesauce for pain relief at this time. states pain is 8/10
--- NOTE | 2020-08-14 11:52 | NUR ---
Spiritual care visit conducted. Patient is sitting up in bed and alert. Patient is immediately tearful as she talks about her medical issues, her concerns about how her is processing her illness and the possible move to [place] to be near her daughter. Patient tells me that she is anxious about what is happening with her medically and about an upcoming procedure in which she will be in a "coma." She also tells me about the recent deaths of her son and brother. I normalize patient's experience and provide grief support, therapeutic listening, spiritual guidance and prayer. Patient responds well and displays evidence of increased peace and decreased anxiety. I will continue to remain available to patient and family. I talk with patient's RN Sommer after the visit and she tells me that patient will not be put into a coma state and that Sommer would go back in and explain to patient what will be happening with her.
--- NOTE | 2020-08-14 13:00 | NUR ---
08/14/20- per chart review with Dr. Unger, pt is still requiring 13 L of O2 and Bipap at night. Pt is struggling with being in the hospital for this long stay and repeative admits and her health not improving at this time. -deana
--- NOTE | 2020-08-14 15:56 | NUR ---
Pt got up to [facility] in stages, with long breaks due to hypoxemia. She was in no distress, but did have accessory muscle use and increased tachypnea with exertion. Wearing hi-chloe oxygen at 11 l/min throughout the day. She has tolerated being off of the bipap. Recovers from activity within 1-2 minutes without distress or anxiety. Requiring minimal-moderate assistance for standing and transfers. Spo2 82% at lowest point that I observed during the activity. Spo2 mainly 90-91% today while on the nasal cannula.
[2020-08-15 04:16] LABS: BASOPHILS PERCENT AUTO 0 % (0-2); EOSINOPHILS PERCENT AUTO 0 % (0-6); Hematocrit 29.5 % (33.0-51.0); Hemoglobin 9.4 g/dL (11.5-16.0); IMMATURE GRAN ABSOLUTE AUTO 1.53 K/mm3 (0.00-0.10); IMMATURE GRAN PERCENT AUTO 5 % (0-1); LYMPHOCYTES ABSOLUTE AUTO 2.14 K/mm3 (0.84-5.20); LYMPHOCYTES PERCENT AUTO 6 % (21-46); MONOCYTES ABSOLUTE AUTO 1.44 K/mm3 (0.16-1.47); MONOCYTES PERCENT AUTO 4 % (4-13); Mean Corpuscular HGB 30.4 pg (26.0-34.0); Mean Corpuscular HGB Conc 31.9 g/dL (31.5-36.5); Mean Corpuscular Volume 96 fL (80-100); Mean Platelet Volume 9.3 fL (9.1-12.4); NEUTROPHILS ABSOLUTE AUTO 28.33 K/mm3 (1.96-9.15); NEUTROPHILS PERCENT AUTO 84 % (41-73); Platelet Count 504 K/mm3 (150-400); RDW Coefficient Variation 14.5 % (11.7-14.2); RDW Standard Deviation 50.4 fL (35.1-46.3); Red Blood Cell Count 3.09 M/mm3 (3.80-5.20); White Blood Cell Count 33.54 K/mm3 (4.00-11.30)
[2020-08-15 04:40] LABS: Alanine Aminotransfer (ALT/SGP 183 U/L (12-78); Albumin, Blood 1.5 g/dL (3.4-5.0); Albumin/Globulin Ratio 0.3 (0.8-1.8); Alk Phos 157 U/L (50-136); Anion Gap 5 mmol/L (6-16); Aspartate Aminotrans (AST/SGOT 199 U/L (12-37); Bilirubin, Total 0.2 mg/dL (0.1-1.0); Blood Urea Nitrogen 37 mg/dL (8-24); Bun/Creatinine Ratio 50.1 (12.0-20.0); CO2, Blood 30 mmol/L (21-32); Calcium, Blood 8.5 mg/dL (8.5-10.1); Chloride, Blood 106 mmol/L (98-108); Creatinine, Blood 0.74 mg/dL (0.40-1.00); Globulin, Blood 5.8 g/dL (2.2-4.0); Glomerular Filtration Rate >60 (60-); Glucose, Blood 118 mg/dL (70-99); Potassium, Blood 4.6 mmol/L (3.5-5.5); Sodium, Blood 141 mmol/L (136-145); Total Protein, Blood 7.3 g/dL (6.4-8.2)
--- NOTE | 2020-08-15 08:08 | NUR ---
SHIFT SUMMARY PATIENT ALERT AND ORIENTED X4, BUT HAS MOMENTS OF FORGETFULNESS, PATIENT REALIZES THIS AND GETS FRUSTRATED AT TIMES. PATIENT CALLS APPROPRIATELY. 1 PERSON ASSIST ON BED DIEHL. REPOSITIONS SELF IN BED. WORE BIPAP MOST THE NIGHT. 11-13L VIA NC WHEN OFF BIPAP 02 SATS 90-94%. PATIENT BECOMES ANXIOUS EASILY. VSS, NO ACUTE CHANGES. CALL LIGHT IN REACH, BED ALARM ON.
--- NOTE | 2020-08-15 10:17 | NUR ---
Chioma looks better than she did yesterday. Her anxiety seems to be less. She said that the anxiety medication which she had yesterday evening really helped her so much that when she woke up at 3 am she felt like she had a very good night's sleep. Her mentation seems improved compared to yesterday. She doesn't fumble over her words and is expressing her thoughts and needs much more clearly
--- NOTE | 2020-08-15 15:08 | NUR ---
Daughter Kelle here visitng with the patient at this time. Pt appears to be calm, but states that she has occasionally had some itching of her palms.
--- NOTE | 2020-08-15 18:32 | NUR ---
the pt has continued to show desaturation of her spo2 with minimal activity, requiring a few minutes for recovery, and 11-13 l/min supplemental oxygen throughout the day. Weak, but remains energetic despite her apparent frail and hypoxic state. Cheerful and talkative this afternoon and evening. Daughter Kelle was here to visit from 1400 to 1800 today. Eating well, using the bedpan for voiding and bowel movements. Xanax given once this morning for anxiety, no pain medication given by me this shift.
[2020-08-15 19:39] LABS: Influenza A, PCR NEGATIVE (NEGATIVE); Influenza B, PCR NEGATIVE (NEGATIVE); Resp Syncytial Virus, PCR NEGATIVE (NEGATIVE); SARS-Cov-2 (COVID-19) PCR, MMC NEGATIVE (NEGATIVE)
[2020-08-16 04:35] LABS: Hematocrit 28.6 % (33.0-51.0); Hemoglobin 8.9 g/dL (11.5-16.0); Mean Corpuscular HGB 30.1 pg (26.0-34.0); Mean Corpuscular HGB Conc 31.1 g/dL (31.5-36.5); Mean Corpuscular Volume 97 fL (80-100); Mean Platelet Volume 9.3 fL (9.1-12.4); Platelet Count 600 K/mm3 (150-400); RDW Coefficient Variation 14.6 % (11.7-14.2); RDW Standard Deviation 51.2 fL (35.1-46.3); Red Blood Cell Count 2.96 M/mm3 (3.80-5.20); White Blood Cell Count 33.73 K/mm3 (4.00-11.30)
[2020-08-16 05:00] LABS: Alanine Aminotransfer (ALT/SGP 161 U/L (12-78); Albumin, Blood 1.5 g/dL (3.4-5.0); Albumin/Globulin Ratio 0.2 (0.8-1.8); Alk Phos 165 U/L (50-136); Anion Gap 8 mmol/L (6-16); Aspartate Aminotrans (AST/SGOT 97 U/L (12-37); Bilirubin, Total 0.2 mg/dL (0.1-1.0); Blood Urea Nitrogen 39 mg/dL (8-24); Bun/Creatinine Ratio 56.8 (12.0-20.0); CO2, Blood 29 mmol/L (21-32); Calcium, Blood 8.6 mg/dL (8.5-10.1); Chloride, Blood 105 mmol/L (98-108); Creatinine, Blood 0.69 mg/dL (0.40-1.00); Glomerular Filtration Rate >60 (60-); Glucose, Blood 114 mg/dL (70-99); Magnesium, Blood 2.1 mg/dL (1.6-2.4); Phosphorus, Blood 3.1 mg/dL (2.5-4.9); Sodium, Blood 142 mmol/L (136-145); Total Protein, Blood 7.5 g/dL (6.4-8.2)
--- NOTE | 2020-08-16 05:29 | NUR ---
SHIFT SUMMARY PATIENT WAS ALERT AND ORIENTED AT BEGINNING OF SHIFT. THROUGH THE NIGHT AND AFTER WAKING PATIENT BECAME CONFUSED AND WAS NOT SURE WHERE SHE WAS. LATER IN THE MORNING PATIENT COULD RECAL BEING IN THE HOSPITAL. 02 SATS 88-91% ON 15L NC. PATIENT WORE BIPAP MOST THE NIGHT 02 SATS 91%. VSS, NO ACUTE CHANGES. PATIENT BECOMES ANXIOUS EASILY. PATIENT REPOSITONS SELF IN BED. MOMENTS OF INCONTINENCE, USES BEDPAN OCCASIONALLY. BRIEF CHANGES NEEDED. CALL LIGHT IN REACH.
[2020-08-16 05:51] LABS: BAND PERCENT MAN 3 % (0-8); BASOPHILS PERCENT MAN 0 % (0-2); EOSINOPHILS PERCENT MAN 0 % (0-6); LYMPHOCYTES ABSOLUTE MAN 1.68 K/mm3 (0.84-5.20); LYMPHOCYTES PERCENT MAN 5 % (21-46); METAMYELOCYTE ABSOLUTE MAN 0.33 K/mm3 (0.00-0.00); METAMYELOCYTE PERCENT MAN 1 % (0-0); MONOCYTES ABSOLUTE MAN 1.68 K/mm3 (0.16-1.47); MONOCYTES PERCENT MAN 5 % (4-13); MYELOCYTE ABSOLUTE MAN 0.67 K/mm3 (0.00-0.00); MYELOCYTE PERCENT MAN 2 % (0-0); NEUTROPHILS ABSOLUTE MAN 29.34 K/mm3 (1.96-9.15); SEG NEUTROPHILS PERCENT MAN 84 % (41-73); TOTAL CELLS COUNTED 100
[2020-08-16 11:11] LABS: PCO2 Arterial 43.3 mmHg (35-45); PO2 Arterial 56.1 mmHg (80-100); pH Blood Arterial 7.48 (7.35-7.45)
--- NOTE | 2020-08-16 11:44 | NUR ---
MORNING UPDATE PT WAS ASLEEP DURING MORNING REPORT. PT HAS BEEN TOLERATING THE BIPAP WELL TODAY. SHE WAS PLACED ON 15L WITH THE HIGH FLOW NC FOR BREAKFAST AND WAS NOT ABLE TO MAINTAIN SATURATION ABOVE 87% WHILE EATING. PT QUICKLY FINISHED HER MEAL AND WAS PLACED BACK ON BIPAP. AN ABG WAS COMPLETED THIS MORNING DUE TO INCREASE IN O2 NEEDS. PT HAS TAKEN MORNING MEDICATIONS, BEEN GIVEN TYLENOL FOR SORENESS IN HER SHOULDERS. PT IS NOW RESTING IN BED AWAITING LUNCH
--- NOTE | 2020-08-16 18:06 | NUR ---
SHIFT SUMMARY PT HAS BEEN PARTICIPATING IN HER CARE TODAY AND HAS BEEN VERY COOPERATIVE. PT WAS ABLE TO DO SOME IN BED EXERCISES WITH PHYSICAL THERAPY BUT WAS NOT ABLE TO DO EXTENSIVE THERAPY WITHOUT HAVING HER OXYGEN SATURATION DROP. PT HAS REMAINED ON BIPAP TODAY EXCEPT FOR MEALS. DURING MEALS PT IS ON 15L O2 VIA HIGH FLOW NC, PT WILL DROP INTO THE LOW 80% RANGE WHILE EATING AND NEEDS TO BE PLACED BACK ON BIPAP SOON AFTER FINISHING TO RECOVER AND MAINTAIN O2 ABOVE 90%. PT HAS BEEN SEEN TODAY BY PULMONOLOGY WHO FOLLOWED UP WITH FAMILY. VS STABLE OTHER THAN OXYGEN NEEDS. ABG WAS COMPLETED TODAY. PT IN BED RESTING AT THIS TIME
--- NOTE | 2020-08-17 05:37 | NUR ---
PATIENT IS ALERT AND ORIENTED X4, BECOMES CONFUSED IN THE MIDDLE OF THE NIGHT BUT IS EASILY REORIENTED. MEDICATED FOR PAIN SEE EMAR. PATIENT 02 SATS 84-88% ON 15L VIA NC, ONLY ABLE TO TOLERATE FOR 5-10 MINUTES THEN NEEDS BIPAP. BIPAP BREAKS FOR MEDS, WATER, AND ORAL CARE PROVIDED. PATIENT SLEPT MOST THE NIGHT, INCONTINENT, BRIEF CHANGED NEEDED, TURNED Q2 HOURS. VSS, NO ACUTE CHANGES, CALL LIGHT IN REACH.
[2020-08-17 08:27] LABS: Hematocrit 30.4 % (33.0-51.0); Hemoglobin 9.5 g/dL (11.5-16.0); Mean Corpuscular HGB 30.3 pg (26.0-34.0); Mean Corpuscular HGB Conc 31.3 g/dL (31.5-36.5); Mean Corpuscular Volume 97 fL (80-100); Mean Platelet Volume 9.2 fL (9.1-12.4); NRBC ABSOLUTE 0.02 K/mm3 (0.00-0.02); NRBC Auto 0.1 /100 WBC (0.0-0.2); Platelet Count 645 K/mm3 (150-400); RDW Coefficient Variation 14.7 % (11.7-14.2); RDW Standard Deviation 51.4 fL (35.1-46.3); Red Blood Cell Count 3.14 M/mm3 (3.80-5.20); White Blood Cell Count 34.38 K/mm3 (4.00-11.30)
[2020-08-17 08:49] LABS: BAND PERCENT MAN 1 % (0-8); BASOPHILS PERCENT MAN 0 % (0-2); EOSINOPHILS ABSOLUTE MAN 0.34 K/mm3 (0.00-0.68); EOSINOPHILS PERCENT MAN 1 % (0-6); LYMPHOCYTES ABSOLUTE MAN 3.09 K/mm3 (0.84-5.20); LYMPHOCYTES PERCENT MAN 9 % (21-46); METAMYELOCYTE ABSOLUTE MAN 0.68 K/mm3 (0.00-0.00); METAMYELOCYTE PERCENT MAN 2 % (0-0); MONOCYTES PERCENT MAN 7 % (4-13); NEUTROPHILS ABSOLUTE MAN 27.84 K/mm3 (1.96-9.15); SEG NEUTROPHILS PERCENT MAN 80 % (41-73); TOTAL CELLS COUNTED 100
[2020-08-17 08:50] LABS: Alanine Aminotransfer (ALT/SGP 111 U/L (12-78); Albumin, Blood 1.6 g/dL (3.4-5.0); Albumin/Globulin Ratio 0.3 (0.8-1.8); Alk Phos 166 U/L (50-136); Anion Gap 5 mmol/L (6-16); Aspartate Aminotrans (AST/SGOT 43 U/L (12-37); Bilirubin, Total 0.2 mg/dL (0.1-1.0); Blood Urea Nitrogen 33 mg/dL (8-24); Bun/Creatinine Ratio 49.6 (12.0-20.0); CO2, Blood 33 mmol/L (21-32); Calcium, Blood 8.4 mg/dL (8.5-10.1); Chloride, Blood 103 mmol/L (98-108); Creatinine, Blood 0.67 mg/dL (0.40-1.00); Globulin, Blood 5.9 g/dL (2.2-4.0); Glomerular Filtration Rate >60 (60-); Glucose, Blood 74 mg/dL (70-99); Potassium, Blood 4.6 mmol/L (3.5-5.5); Sodium, Blood 141 mmol/L (136-145); Total Protein, Blood 7.5 g/dL (6.4-8.2)
--- NOTE | 2020-08-17 10:02 | NUR ---
MORNING UPDATE PT HAS BEEN ANXIOUS THIS MORNING REGARDING HER DISCUSSION WITH DR. ZARAGOZA YESTERDAY. THE NOTE EXPLAINS A POSSIBILITY OF CANCER SPREADING RELATED TO HER HISTORY OF BREAST CANCER. PT'S OXYGEN REQUIREMENTS CONTINUE TO INCREASE. PT REMAINS ON BIPAP AND CAN TOLERATE BEING OFF BIPAP FOR ABOUT 5 MINUTES WHILE ON 15L HIGH FLOW NC TO EAT AND DO MEDICATIONS. PT IS RESTING IN BED AT THIS TIME.
--- NOTE | 2020-08-17 14:17 | NUR ---
echocardiogram complete
--- NOTE | 2020-08-17 15:12 | NUR ---
CODE STATUS CHANGE PT MAY BE COBRA TRANSFERRED TO [facility] FOR A BIOPSY OF THE LUNGS. PT STATES "I WANT TO GO DOWN FIGHTING BUT ALSO WANT TO BE COMFORTABLE." THIS INITIATED A CODE STATUS CONVERSATION WITH THE PATIENT. GRICEL SHAW EXPLAINED THAT CURRENTLY A FULL CODE ALL MEASURES WOULD BE TAKEN TO KEEP HER ALIVE, INCLUDING INTUBATION, CPR, MEDICATIONS, DEFIBRILATION. GRICEL SHAW EXPLAINED THAT THERE IS A LIMITED CODE OPTION WHERE ONLY INTUBATION AND MEDICATIONS COULD BE USED AND NO CPR OR DEFIBRILATION. I EXPLAINED THAT INTUBATION AND MEDS MAY NOT BE COMFORTABLE HOWEVER THOSE OPTIONS WOULD BE MORE COMFORTABLE THAN HAVING CPR PERFORMED WHICH WOULD BE VERY AGRESSIVE FOR HER SIZE. PT AND PT'S DAUGHTER, LEAH, GAVE VERBAL UNDERSTANDING AND REQUESTED THAT THE PT BE LIMITED CODE, INTUBATION AND MEDICATION ONLY. THIS WAS DISCUSSED WITH DR. Gavin CHRISTIE WHO CONFIRMED THE CHANGE APPROPRIATE.
--- NOTE | 2020-08-17 19:11 | NUR ---
COBRA TRANSFER PT WAS TRANSFERRED OUT AT APPROXIMATELY 1815 BY EMS TO [facility] IN [place]. REPORT WAS GIVEN TO GRICEL BAILEY IN ICU AT [facility]. PT LEFT ON 12L HIGH FLOW NC, 12L NON REBREATHER. VS OTHERWISE STABLE. FAMILY WAS AT THE BEDSIDE PRIOR TO THE TRANSFER. PT WAS ANXIOUS AND GIVEN XANEX PRIOR TO LEAVING.
--- NOTE | 2020-08-18 19:24 | NUR ---
ADMIT: 08/08/20 DISCHARGE: 08/17/20 [facility] transfer to [facility] DX: Sepsis due to Pneumonia CC: kw ADMIT: 07/28/20 DISCHARGE:08/02/20 DX: PNEUMONIA INVOLVING LEFT LUNG ADMIT:07/16/20 DISCHARGE: 07/22/20 DX: PNEUMONIA GABINO CALL: PT at home RESIDENCE: Home with spouse CAREGIVER: RACIEL FARMER, SPOUSE / PARTNER, , DIMITRY (MARLENY) KEANE [phone], LEAH JOSE) MAXIMILIAN, CHILD, , DX: HTN, Chronic pain syndrome, GERD, see list DME: 08/02/20 OXYGEN 1 L/M HOME OXYGEN 3 REST 6 EXERTION. [facility] CCM: none HOME HEALTH: 08/04/20 [facility], [facility] SUMMARY: Admit: 08/08/20SUMMARY: [facility] Transfer by DR ZARAGOZA. 08/17/20 Receiving Facility/ [facility] has agreed to accept transfer, has available space and qualified personnel and Emily MCGOVERN
== END 2020-08-17 18:11 | disposition short-term general hospital (02) | DRG 871 ==
LOC: ER 17:56 → PCU 22:34 → MEDS 08-11 18:23 → PCU 08-12 19:17
PROVIDERS: Emergency Medicine; Hospitalist; Internal Medicine; Internal Medicine Critical Care Medicine; Nurse Practitioner Acute Care; ADMIT Internal Medicine
PROC: 0W9B3ZZ Drainage of Left Pleural Cavity, Percutaneous Approach (ICD-10-PCS; 2020-08-10)
PROC: 5A09357 Assistance with Respiratory Ventilation, Less than 24 Consecutive Hours, Continuous Positive Airway Pressure (ICD-10-PCS; principal; 2020-08-13)
DX: A41.9 Sepsis, unspecified organism (principal); E43 Unspecified severe protein-calorie malnutrition; J96.01 Acute respiratory failure with hypoxia; J18.9 Pneumonia, unspecified organism; Z68.1 Body mass index [BMI] 19.9 or less, adult; R64 Cachexia; Z99.81 Dependence on supplemental oxygen; Z90.12 Acquired absence of left breast and nipple; K21.9 Gastro-esophageal reflux disease without esophagitis; R74.01 Elevation of levels of liver transaminase levels; Z92.21 Personal history of antineoplastic chemotherapy; I10 Essential (primary) hypertension; E88.09 Other disorders of plasma-protein metabolism, not elsewhere classified; Z20.822 Contact with and (suspected) exposure to COVID-19
CPT/HCPCS: 0241U; 32555; 36415; 36600; 71045; 71046; 71260; 80048; 80053; 80202; 82465; 82803; 82945; 83605; 83615; 83735; 83880; 83986; 84100; 84145; 84157; 84484; 85025; 85610; 85730; 87040; 87070; 87102; 87205; 87305; 88108; 88305; 88341; 88342; 89051; 93005; 93010; 93306; 94660; 94667; 94760; 94762; 96365-59; 97110; 97110-CQ; 97162; 97165; 97530; 97535; 99285-25; A9270; C1751; J0692; J1170; J1650; J2060; J2930; J3010; J3370; J3465; J3475; J7030; J7050; Q9967

== ENCOUNTER → 2021-11-16 | Outpatient (CLI) | payer MEDICARE ==
[~2021-11-16] MED LIST changes: +FAMO10 PO; +HYDROCODONE-AC1 EA11 PO; +LEVO750 PO; +LOMOTIL 2.5-0.1 EACH PO; +Levaquin750 MG PO; +NAPROXEN500 MG PO
== END | disposition home or self-care (01) ==
LOC: LAB SHORT 12:27
DX: C44.519 Basal cell carcinoma of skin of other part of trunk (principal)
CPT/HCPCS: 88305

== ENCOUNTER → 2021-12-03 | Outpatient (CLI) | payer MEDICARE | END | disposition home or self-care (01) | LOC: LAB SHORT 08:10 → PLD 08:10 | DX: C44.519 Basal cell carcinoma of skin of other part of trunk (principal) | CPT/HCPCS: 88305 ==

== ENCOUNTER 2022-03-08 23:33 | Inpatient (IN) | payer MEDICARE ==
[~2022-03-08] VITALS: Ht 165.1 cm; Wt 73.5 kg
[2022-03-09] MEDS ORDERED: FAMO20 PO (01:45)
[2022-03-09] MEDS ORDERED: PRED5 PO (01:46)
[2022-03-09] MEDS ORDERED: OMEP20ER PO (01:46)
[2022-03-09] MEDS ORDERED: METOPROLOL TART25 MG PO (01:46)
[2022-03-09 03:07] LABS: Influenza A, PCR NEGATIVE (NEGATIVE); Influenza B, PCR NEGATIVE (NEGATIVE); Resp Syncytial Virus, PCR NEGATIVE (NEGATIVE); SARS-Cov-2 (COVID-19) PCR, MMC NEGATIVE (NEGATIVE)
[2022-03-09 04:30] LABS: Source, Urine Foley catheter
--- NOTE | 2022-03-09 04:35 | NUR ---
2845 HRS: COMPLETED SURGICAL INFECTION PREVENTION KIT EXCEPT FOR MOUTH RINSE. PT UNABLE TO SIT UP AND USE MOUTH WASH AT THIS TIME.
--- NOTE | 2022-03-09 05:28 | NUR ---
SHIFT SUMMARY: PT C/O PAIN TO HER L HIP FOR THE MAJORITY OF THE SHIFT. DR. BRUNER WAS NOTIFIED BY ASHA MONSALVE, AND OT DOSE OF FENTNAYL WAS ORDERED. MEDICATION PROVIDED SOME RELIEF FOR THE PT AND SHE WAS ABLE TO REST. SURGICAL INFECTION PREVENTION KIT WAS CONDUCTED. PT IS A&O AND VERY COOPERATIVE AND PLEASANT. MONK CATHETER REMAINS PATENT AND IS DRAINING TO GRAVITY. REMAINS ON 2L 02 VIA NC TO KEEP OXYGEN SATURATION >90.
[2022-03-09 05:29] LABS: Appearance, Urine Clear (Clear); Bilirubin, Urine Neg (Neg); Blood, Urine 2+ (Neg); Color, Urine Yellow (P-Yellow); Glucose Qualitative, Urine Neg (Neg); Ketones, Urine Neg (Neg); Leukocyte Esterase, Urine 1+ (Neg); Nitrite, Urine Pos (Neg); Protein, Urine 1+ (Neg); Specific Gravity, Urine 1.015 (1.003-1.022); Urobilinogen, Urine NORM (Normal)
[2022-03-09 05:49] LABS: Bacteria Few /hpf; Squamous Epithelial Cells Few /hpf (Few); White Blood Cells, Urine 0-2 /hpf (0-5)
[2022-03-09 05:51] LABS: BASOPHILS ABSOLUTE AUTO 0.03 K/mm3 (0.00-0.23); BASOPHILS PERCENT AUTO 0 % (0-2); EOSINOPHILS PERCENT AUTO 1 % (0-6); Hematocrit 36.8 % (33.0-51.0); Hemoglobin 11.5 g/dL (11.5-16.0); IMMATURE GRAN ABSOLUTE AUTO 0.07 K/mm3 (0.00-0.10); IMMATURE GRAN PERCENT AUTO 1 % (0-1); LYMPHOCYTES ABSOLUTE AUTO 1.96 K/mm3 (0.84-5.20); LYMPHOCYTES PERCENT AUTO 16 % (21-46); MONOCYTES PERCENT AUTO 9 % (4-13); Mean Corpuscular HGB 30.7 pg (26.0-34.0); Mean Corpuscular HGB Conc 31.3 g/dL (31.5-36.5); Mean Corpuscular Volume 98 fL (80-100); Mean Platelet Volume 9.1 fL (9.1-12.4); NEUTROPHILS ABSOLUTE AUTO 9.26 K/mm3 (1.96-9.15); NEUTROPHILS PERCENT AUTO 74 % (41-73); Platelet Count 349 K/mm3 (150-400); RDW Coefficient Variation 13.9 % (11.7-14.2); RDW Standard Deviation 50.1 fL (35.1-46.3); Red Blood Cell Count 3.74 M/mm3 (3.80-5.20); White Blood Cell Count 12.52 K/mm3 (4.00-11.30)
[2022-03-09 05:57] LABS: Albumin, Blood 3.4 g/dL (3.4-5.0); Albumin/Globulin Ratio 0.9 (0.8-1.8); Bilirubin, Total 0.2 mg/dL (0.1-1.0); Bun/Creatinine Ratio 18.5 (12.0-20.0); Calcium, Blood 8.7 mg/dL (8.5-10.1); Creatinine, Blood 0.92 mg/dL (0.40-1.00); Globulin, Blood 3.7 g/dL (2.2-4.0); Potassium, Blood 3.9 mmol/L (3.5-5.5); Total Protein, Blood 7.1 g/dL (6.4-8.2)
--- NOTE | 2022-03-09 06:38 | NUR ---
0639 HRS: PT DAUGHTER ELIZ CALLED AND DISCUSSED THE PT CURRENT CONDITION. PT DAUGHTER MENTIONED THAT THE PT HAS HAD A HX OF PNEUMONITIS AND SHE WANTS EVERYONE TO BE AWARE THAT SHE HAS HAD THIS IN HER HX. ELIZ STATES THAT SHE SEES DR. KINCAID AND THAT THEY ARE CURRENTLY TRYING TO WEAN HER OFF OF THE PREDNISONE. DAUGHTER WOULD LIKE TO BE NOTIFIED OF ANY CHANGES AT THIS TIME.
--- NOTE | 2022-03-09 10:30 | NUR ---
PAIN PT REPORTED ELEVATED PAIN AT 10/10 THIS MORNING. PT GRIMACING AND CRYING R/T PAIN. DR. REID NOTIFIED. PT REPORTED HAVING SPASM. PAIN MANAGEMENT IMPROVED WITH ROBAXIN, TYLENOL, FENTANYL AND OXYCODONE. PT REPORTS FEELING COMFORTABLE AND PLEASED WITH PAIN MANAGEMENT.
--- NOTE | 2022-03-09 17:31 | NUR ---
BUCKS TRACTION 5 POUNDS BUCKS TRACTION PLACED FOR COMFORT. PT TOLERATING WELL.
--- NOTE | 2022-03-10 06:06 | NUR ---
SHIFT SUMMARY: A&OX4. VERY PLEASANT AND ENGAGED IN CARE. PT'S PAIN WAS BETTER MANAGED THIS SHIFT. PT WAS ABLE TO REST COMFORTABLY FOR THE MAJORITY OF THE SHIFT. PT MONK IS PATENT AND DRAINING TO GRAVITY. NPO SINCE MIDNIGHT. SURGICAL INFECTION PREVENTION KIT COMPLETED. SCHULTE TRACTION REMAINS IN PLACE ON L LEG. PT IS RESTING COMFORTABLY AND CALL LIGHT IS WITHIN REACH AT THIS TIME.
--- NOTE | 2022-03-10 11:33 | NUR ---
PATIENT JUST LEFT FOR THE OR.
--- NOTE | 2022-03-10 12:05 | NUR ---
History, Chart, Medications and Allergies reviewed before start of procedure.Pre-Op teaching done. Pt verbalizes understanding. Patient confirms NPO status and agrees with scheduled surgery.
--- NOTE | 2022-03-10 14:36 | NUR ---
03/10/22 1436 Ailyn Hernandez PATIENT HAD MONK IN PLACE PRIOR TO ENTERING OR.
--- NOTE | 2022-03-10 16:49 | NUR ---
SHIFT SUMMARY: PATIENT CAME BACK FROM PACU TODAY AT 1645. POD 0 LEFT HIP PINNING PATIENT IS A&OX4. SLIGHT HTN BUT OTHERWISE VS ARE WNL AND IS ON RA. PATIENT REPORTS A DULL PAIN BUT REFUSES PAIN MEDICATION AT THIS TIME. LEFT HIP HAS AN AQUACEL THAT IS C/D/I. PATIENT DENIES NUMBNESS AND TINGLING. SHE CAN MOVE HER FINGERS AND TOES WHEN ASKED. SHE IS TOLERATING SMALL SIPS OF WATER AT THIS TIME AND HAS JELLO AT BEDSIDE. IS AT BEDSIDE AT THIS TIME. CALL LIGHT WITHIN REACH.
--- NOTE | 2022-03-11 03:47 | NUR ---
5637 HRS: PT HAS CONCERNS REGARDING TRAVEL AFTER SURGERY. SHE IS WONDERING IF NEW HIP PROSTHESIS WILL SET OFF ALARMS IN THE AIR PORT. WILL PASS THIS ALONG TO ONCOMING SHIFT AND UPDATE THEM ON THE PATIENT'S CONCERNS.
--- NOTE | 2022-03-11 04:48 | NUR ---
SHIFT SUMMARY: PT RESTED COMFORTABLY T/O THE SHIFT. PAIN WAS WELL MANAGED PER EMAR ORDERS. A&OX4. VERY PLEASANT. TOLERATING PO FLUIDS AND SNACKED ON CRACKERS. DENIED NAUSEA. MONK CATHETER REMAINS IN PLACE AND IS PATENT AND DRAINING TO GRAVITY. PT HAD QUESTIONS REGARDING TRAVEL AFTER SURGERY, SEE NOTE FOR FURTHER DETAIL. WILL PASS ALONG TO ONCOMING SHIFT THE PT CONCERNS. CALL LIGHT REMAINS IN REACH AT THIS TIME.
[2022-03-11] MEDS ORDERED: ROXICODONE5 MG PO (13:00)
[2022-03-11] MEDS ORDERED: NITR100CA PO (14:00)
--- NOTE | 2022-03-11 15:05 | NUR ---
DISCHARGE SUMMARY PT POD #1 FOR L TARIK HIP. AQUACEL DRESSING CDI. DRESSING ON L CROSS CHANGED. PT'S PAIN CONTROLLED PER EMR. PT TO BE SEEN BY HOME HEALTH AND HOME HEALTH ARRANGED. VSS. DC'D HOME WITH .
== END 2022-03-11 15:30 | disposition home or self-care (01) | DRG 522 ==
LOC: ER 23:33 → SURS 03-09 01:54
PROVIDERS: Emergency Medicine; Orthopaedic Surgery; ADMIT Internal Medicine
PROC: 0SRS0JA Replacement of Left Hip Joint, Femoral Surface with Synthetic Substitute, Uncemented, Open Approach (ICD-10-PCS; principal; 2022-03-10 12:30)
DX: S72.032A Displaced midcervical fracture of left femur, initial encounter for closed fracture (principal); N39.0 Urinary tract infection, site not specified; I50.30 Unspecified diastolic (congestive) heart failure; J84.9 Interstitial pulmonary disease, unspecified; W18.30XA Fall on same level, unspecified, initial encounter; M19.90 Unspecified osteoarthritis, unspecified site; Z20.822 Contact with and (suspected) exposure to COVID-19; B96.1 Klebsiella pneumoniae [K. pneumoniae] as the cause of diseases classified elsewhere; E78.00 Pure hypercholesterolemia, unspecified; K21.9 Gastro-esophageal reflux disease without esophagitis; E87.6 Hypokalemia; I11.0 Hypertensive heart disease with heart failure; M41.86 Other forms of scoliosis, lumbar region; Z85.3 Personal history of malignant neoplasm of breast; Z87.01 Personal history of pneumonia (recurrent); Z90.710 Acquired absence of both cervix and uterus; Z98.890 Other specified postprocedural states; Z87.81 Personal history of (healed) traumatic fracture; Z79.899 Other long term (current) drug therapy; Z79.52 Long term (current) use of systemic steroids; Z88.0 Allergy status to penicillin; Z91.09 Other allergy status, other than to drugs and biological substances
CPT/HCPCS: 0241U; 36415; 71045; 73502; 73552; 73700; 76377; 80053; 81001; 85025; 87077; 87086; 87186; 93005; 93010; 94762; 96374; 96375; 97110; 97116; 97162; 97166; 97535; 99285-25; A9270; C1776; J0171; J0360; J0696; J0735; J1100; J1170; J1885; J2250; J2405; J2704; J2795; J3010; J7030; J7120; J7512

== ENCOUNTER 2022-05-29 11:00 | Inpatient (IN) | payer MEDICARE ==
[~2022-05-29] VITALS: Ht 172.7 cm; Wt 74.1 kg
[~2022-05-29 11:00] MED LIST changes: +METOPROLOL TART25 MG PO; +NITR100CA PO; +PRED5 PO; +ROXICODONE5 MG PO
[2022-05-29 12:15] LABS: BASOPHILS ABSOLUTE AUTO 0.08 K/mm3 (0.00-0.23); BASOPHILS PERCENT AUTO 0 % (0-2); EOSINOPHILS ABSOLUTE AUTO 0.03 K/mm3 (0.00-0.68); EOSINOPHILS PERCENT AUTO 0 % (0-6); Hematocrit 36.3 % (33.0-51.0); Hemoglobin 11.2 g/dL (11.5-16.0); IMMATURE GRAN ABSOLUTE AUTO 1.08 K/mm3 (0.00-0.10); IMMATURE GRAN PERCENT AUTO 5 % (0-1); LYMPHOCYTES ABSOLUTE AUTO 1.79 K/mm3 (0.84-5.20); LYMPHOCYTES PERCENT AUTO 8 % (21-46); MONOCYTES ABSOLUTE AUTO 0.93 K/mm3 (0.16-1.47); MONOCYTES PERCENT AUTO 4 % (4-13); Mean Corpuscular HGB 28.9 pg (26.0-34.0); Mean Corpuscular HGB Conc 30.9 g/dL (31.5-36.5); Mean Corpuscular Volume 94 fL (80-100); Mean Platelet Volume 9.4 fL (9.1-12.4); NEUTROPHILS ABSOLUTE AUTO 17.79 K/mm3 (1.96-9.15); NEUTROPHILS PERCENT AUTO 82 % (41-73); NRBC ABSOLUTE 0.04 K/mm3 (0.00-0.02); NRBC Auto 0.2 /100 WBC (0.0-0.2); Platelet Count 420 K/mm3 (150-400); RDW Standard Deviation 54.7 fL (35.1-46.3); Red Blood Cell Count 3.88 M/mm3 (3.80-5.20)
[2022-05-29 12:30] LABS: Albumin, Blood 2.7 g/dL (3.4-5.0); Albumin/Globulin Ratio 0.5 (0.8-1.8); Bilirubin, Total 0.4 mg/dL (0.1-1.0); Bun/Creatinine Ratio 21.8 (12.0-20.0); Calcium, Blood 9.1 mg/dL (8.5-10.1); Creatinine, Blood 1.01 mg/dL (0.40-1.00); Globulin, Blood 5.5 g/dL (2.2-4.0); Potassium, Blood 3.8 mmol/L (3.5-5.5); Total Protein, Blood 8.2 g/dL (6.4-8.2)
[2022-05-29 15:49] LABS: Influenza A, PCR NEGATIVE (NEGATIVE); Influenza B, PCR NEGATIVE (NEGATIVE); Resp Syncytial Virus, PCR NEGATIVE (NEGATIVE); SARS-Cov-2 (COVID-19) PCR, MMC NEGATIVE (NEGATIVE)
--- NOTE | 2022-05-29 18:36 | NUR ---
ARRIVAL TO PCU/SHIFT SUMMARY PATIENT ARRIVED AT 1734 FROM ED AND TRANSFERED TO BED WITH A STAND BY ASSIST. VSS. TELE SR 85. PATIENT IS ALERT AND ORIENTED X4. PERRLA. PATIENT LUNG SOUNDS ARE CRACKLES AND COARSE THROUGHOUT. ON 2L NC WITH SPO2 >90% AND BASELINE IS ROOM AIR. PATIENT STATED HAVING COUGH FOR ABOUT A WEEK AND IT IS CAUSING RIB PAIN. PATIENT DENIES PAIN AT THIS TIME. PATIENT BECOMES SHORT OF BREATH WITH EXERTION. PATIENT VOIDS AND HAS ATTENDS IN PLACE FOR ANY LEAKAGE. PATIENT ABD SOFT AND ACTIVE. SKIN IS CLEAN DRY AND INTACT. IT IS FARGILE WITH SCATTERD BRUSING THROUGHOUT. PATIENT FINGERS AND FEET ARE COLD AND PATIENT STATES IT HAS BEEN THIS WAY SINCE CHEMO.PATIENT ORIENTED TO ROOM AND CALL LIGHT. PLAN OF CARE UP TO DATE AT THIS TIME. CALL LIGHT IS WITHIN REACH AND BED IN LOWEST POSITION. WILL CONITNUE TO MONITOR AND PROVIDE CARE UNTIL HAND OFF WITH NOC SHIFT.
--- NOTE | 2022-05-30 05:29 | NUR ---
Patient remains A/Ox4. Slept most of the night. C/o chronic low back pain, repositioning and PRN medication provide good relief. Maintains over 95% on 3L NC, LS coarse crackles t/o with significant PARHAM and tachypneic. Coughs up small amount of green sputum. SR 80s on tele. Denies CP/pressure, VSS. Faint pulses t/o with cold extremities. No acute changes. Will update dayshift RN.
--- NOTE | 2022-05-30 10:41 | NUR ---
CARE ASSUMPTION THIS RN ASSUMED CARE FROM YOHAN MONSALVE AT 0700. VSS. SPO2 >90% ON 2L NC. TELE SR. NEURO IS INTACT, ALERT AND ORIENTED X4. PERRLA. PATIENT REPORTS NO CHEST PAIN/PRESSURE, NO SHORTNESS OF BREATH, AND NO PAIN. PATIENT LUNG SOUNDS ARE COARSE THROUGHOUT. PATIENT ABD IS ACTIVE NONTENDER. PATIENT IS ABLE TO VOID. PATIENT HAS FARGLE SKIN AND SCATTERED BRUSING. SEE SHIFT ASSESSMENT FOR FURHTER DETIALS. PATIENT IS ABLE TO PERFORM ADLS INDEPDENTLY, BUT CALLS SO WE CAN BE A STAND BY ASSIST NEEDED DUE TO HISTORY OF A FALL AND HAING FLUIDS RUNNING. PATIENT STATED THIS MORNING FEELING MUCH BETTER. PLAN OF CARE IS UP TO DATE. CALL LIGHT WITHIN REACH AND BED IN LOWEST POSITION. WILL CONTINUE TO MONITOR AND PROVIDE CARE.
--- NOTE | 2022-05-30 17:54 | NUR ---
SHIFT SUMMARY PATIENT NEURO REMAINS INTACT. VSS. PATIENT USES CALL LIGHT APPROPRIATELY. PLAN IS TO HOPEFULLY DISCHARGE TOMORROW. NO ACUTE CHANGES. SEE PERVIOUS NOTE. CALL LIGHT WITHIN REACH AND BED IN LOWEST POSITION. WILL CONTINUE TO MONITOR AND PROVIDE CARE UNTIL HAND OFF WITH NEXT SHIFT.
--- NOTE | 2022-05-31 05:56 | NUR ---
Patient slept most of the night. C/o back pain x1 during the night. SBP increased to 160's, IV fluids DC'd as patient is taking in PO. Other than that VSS on RA. LS still coarse t/o but holds her sats and has significantly less PARHAM. No acute events. Will report to dayshift RN.
[2022-05-31] MEDS ORDERED: CEFD300 PO (11:16)
[2022-05-31] MEDS ORDERED: LEVO750 PO (11:16)
[2022-05-31] MEDS ORDERED: GUAI600T33 PO (11:16)
--- NOTE | 2022-05-31 15:34 | NUR ---
DISCHARGE SUMMARY PATIENT ALERT AND ORIENTED. SBA WITH FWW TO BATHROOM. SHOWER THIS AM. VSS AND ROOM AIR ALL SHIFT. ROUTINE ABX. TOLERATING REGULAR DIET. TELE NSR. DISCHARGE ORDER OBTAINED. DISCHARGE EDUCATION GIVEN ON NEW MEDS AND FOLLOW UP APPTS. IV'S DC'D WNL. PATIENT LEFT UNIT VIA WHEELCHAIR WITH SPOUSE FOR HOME AT 1515.
== END 2022-05-31 15:17 | disposition home or self-care (01) | DRG 196 ==
LOC: ER 11:00 → PCU 16:04
PROVIDERS: Student in an Organized Health Care Education/Training Program; ADMIT Family Medicine
DX: J84.89 Other specified interstitial pulmonary diseases (principal); J96.01 Acute respiratory failure with hypoxia; B37.0 Candidal stomatitis; K21.9 Gastro-esophageal reflux disease without esophagitis; I35.0 Nonrheumatic aortic (valve) stenosis; K57.90 Diverticulosis of intestine, part unspecified, without perforation or abscess without bleeding; G89.4 Chronic pain syndrome; M19.90 Unspecified osteoarthritis, unspecified site; I10 Essential (primary) hypertension; Z23 Encounter for immunization; E78.5 Hyperlipidemia, unspecified; Z85.3 Personal history of malignant neoplasm of breast; Z20.822 Contact with and (suspected) exposure to COVID-19; Z90.12 Acquired absence of left breast and nipple; Z90.710 Acquired absence of both cervix and uterus; Z90.722 Acquired absence of ovaries, bilateral; Z88.0 Allergy status to penicillin; Z91.040 Latex allergy status
CPT/HCPCS: 0241U; 36415; 71046; 71260; 80053; 83690; 84145; 84484; 85025; 87070; 87205; 93005; 93010; 94640; 94664; 94760; 94762; A9270; C1751; J0692; J1650; J1956; J2930; J3370; J7030; J7050; Q9967

== ENCOUNTER 2022-07-11 20:35 | Inpatient (IN) | payer MEDICARE ==
[~2022-07-11] VITALS: Ht 167.6 cm; Wt 74.8 kg
[2022-07-11 22:09] LABS: BASOPHILS ABSOLUTE AUTO 0.05 K/mm3 (0.00-0.23); BASOPHILS PERCENT AUTO 0 % (0-2); EOSINOPHILS PERCENT AUTO 0 % (0-6); Hematocrit 32.7 % (33.0-51.0); Hemoglobin 10.1 g/dL (11.5-16.0); IMMATURE GRAN ABSOLUTE AUTO 0.17 K/mm3 (0.00-0.10); IMMATURE GRAN PERCENT AUTO 1 % (0-1); LYMPHOCYTES ABSOLUTE AUTO 2.24 K/mm3 (0.84-5.20); LYMPHOCYTES PERCENT AUTO 9 % (21-46); MONOCYTES ABSOLUTE AUTO 1.45 K/mm3 (0.16-1.47); MONOCYTES PERCENT AUTO 6 % (4-13); Mean Corpuscular HGB 28.8 pg (26.0-34.0); Mean Corpuscular HGB Conc 30.9 g/dL (31.5-36.5); Mean Corpuscular Volume 93 fL (80-100); Mean Platelet Volume 8.5 fL (9.1-12.4); NEUTROPHILS ABSOLUTE AUTO 20.76 K/mm3 (1.96-9.15); NEUTROPHILS PERCENT AUTO 84 % (41-73); Platelet Count 341 K/mm3 (150-400); RDW Coefficient Variation 16.3 % (11.7-14.2); RDW Standard Deviation 55.8 fL (35.1-46.3); Red Blood Cell Count 3.51 M/mm3 (3.80-5.20); White Blood Cell Count 24.67 K/mm3 (4.00-11.30)
[2022-07-11 22:28] LABS: Albumin, Blood 2.8 g/dL (3.4-5.0); Albumin/Globulin Ratio 0.8 (0.8-1.8); Bilirubin, Total 0.4 mg/dL (0.1-1.0); Bun/Creatinine Ratio 14.7 (12.0-20.0); Calcium, Blood 8.2 mg/dL (8.5-10.1); Creatinine, Blood 0.95 mg/dL (0.40-1.00); Globulin, Blood 3.3 g/dL (2.2-4.0); Potassium, Blood 3.5 mmol/L (3.5-5.5); Total Protein, Blood 6.1 g/dL (6.4-8.2)
[2022-07-11 22:46] LABS: Influenza A, PCR NEGATIVE (NEGATIVE); Influenza B, PCR NEGATIVE (NEGATIVE); Resp Syncytial Virus, PCR NEGATIVE (NEGATIVE)
[2022-07-11 22:56] LABS: SARS-Cov-2 (COVID-19) PCR, MMC POSITIVE (NEGATIVE)
[2022-07-12 01:36] LABS: International Normalized Ratio 1.07; Prothrombin Time Results 11.2 Sec (9.7-11.5)
[2022-07-12 05:10] LABS: BASOPHILS ABSOLUTE AUTO 0.04 K/mm3 (0.00-0.23); BASOPHILS PERCENT AUTO 0 % (0-2); EOSINOPHILS PERCENT AUTO 0 % (0-6); Hematocrit 31.2 % (33.0-51.0); Hemoglobin 9.8 g/dL (11.5-16.0); IMMATURE GRAN ABSOLUTE AUTO 0.27 K/mm3 (0.00-0.10); IMMATURE GRAN PERCENT AUTO 1 % (0-1); LYMPHOCYTES ABSOLUTE AUTO 0.66 K/mm3 (0.84-5.20); LYMPHOCYTES PERCENT AUTO 3 % (21-46); MONOCYTES ABSOLUTE AUTO 0.31 K/mm3 (0.16-1.47); MONOCYTES PERCENT AUTO 1 % (4-13); Mean Corpuscular HGB 29.3 pg (26.0-34.0); Mean Corpuscular HGB Conc 31.4 g/dL (31.5-36.5); Mean Corpuscular Volume 93 fL (80-100); NEUTROPHILS ABSOLUTE AUTO 20.78 K/mm3 (1.96-9.15); NEUTROPHILS PERCENT AUTO 94 % (41-73); Platelet Count 344 K/mm3 (150-400); RDW Coefficient Variation 16.3 % (11.7-14.2); RDW Standard Deviation 55.5 fL (35.1-46.3); Red Blood Cell Count 3.35 M/mm3 (3.80-5.20); White Blood Cell Count 22.06 K/mm3 (4.00-11.30)
[2022-07-12 05:51] LABS: Campylobacter Sp Detected (NOT DETECT); Plesiomonas Shigelloides Not Detected (NOT DETECT); Salmonella Sp Not Detected (NOT DETECT); Yersinia Enterocolitica Not Detected (NOT DETECT)
[2022-07-12 05:52] LABS: Adenovirus F 40/41 Not Detected (NOT DETECT); Astrovirus Not Detected (NOT DETECT); Cryptosporidium Not Detected (NOT DETECT); Cyclospora Cayetanensis Not Detected (NOT DETECT); E. Coli O157 Not Detected (NOT DETECT); Entamoeba Histolytica Not Detected (NOT DETECT); Enteroaggregative E. coli-EAEC Not Detected (NOT DETECT); Enteropathogenic E. coli-EPEC Not Detected (NOT DETECT); Enterotoxigenic E. coli-ETEC Not Detected (NOT DETECT); Giardia Lamblia Not Detected (NOT DETECT); Norovirus GI/GII Not Detected (NOT DETECT); Rotavirus A Not Detected (NOT DETECT); Sapovirus Not Detected (NOT DETECT); Shiga Toxin-prod E. coli-STEC Not Detected (NOT DETECT); Shigella/Enteroin E. coli-EIEC Not Detected (NOT DETECT); Vibrio Cholerae Not Detected (NOT DETECT); Vibrio Sp Not Detected (NOT DETECT)
[2022-07-12 06:38] LABS: Albumin, Blood 2.7 g/dL (3.4-5.0); Albumin/Globulin Ratio 0.8 (0.8-1.8); Bilirubin, Total 0.3 mg/dL (0.1-1.0); Bun/Creatinine Ratio 15.2 (12.0-20.0); Calcium, Blood 7.7 mg/dL (8.5-10.1); Creatinine, Blood 0.92 mg/dL (0.40-1.00); Globulin, Blood 3.5 g/dL (2.2-4.0); Potassium, Blood 3.4 mmol/L (3.5-5.5); Total Protein, Blood 6.2 g/dL (6.4-8.2)
--- NOTE | 2022-07-12 07:23 | NUR ---
SHIFT SUMMARY PT AOX3 ON ARRIVAL FROM ER. PT VERBALIZES UNDERSTANDING OF INSTRUCTIONS BY THIS RN. X1 ASSIST TO BEDSIDE COMMODE. INCONTINENT OF LOOSE YELLOWISH-BROWN STOOLS. SAMPLE SENT TO LAB. PT DENIES ANY PAIN. SOME TACHYPNEA WITH UP AND APPEARS OUT OF BREATH WHEN BACK TO BED FROM COMMODE. SATS MAINTAIN 96% ON RA. NO FURTHER EPISODES OF DIARRHEA FOLLOWING SECOND DOSE OF 2 MG IMMODIUM AT THIS TIME. NS INFUSING PER ORDER.
--- NOTE | 2022-07-12 17:51 | NUR ---
SHIFT SUMMARY PT HAS BEEN RESTING QUIETLY IN ROOM THROUGHOUT THE DAY. PT CALLED APPROPRIATELY FOR ASSISTANCE. PT HAD MORE EPISODES OF DIARRHEA FOR WHICH THEY WERE MEDICATED PER EMAR. PT DENIED ANY C/O PAIN OR DISCOMFORT. PT AMBULATED TO RESTROOM WITH STAFF BY STAND-BY ASSIST ON MULTIPLE OCCASIONS. THEY WERE STEADY AND STABLE ON THEIR FEET, THEY DEMONSTRATED NO IMPULSIVENESS AND WERE FULLY AWARE OF THEIR LIMITATIONS. ALL VITAL SIGNS REMAINED STABLE AND WITHIN NORMAL LIMITS.
--- NOTE | 2022-07-13 04:59 | NUR ---
SHIFT SUMMARY: PT ALERT AND ORIENTED X4, ABLE TO FOLLOW ALL COMMANDS AND MAKE NEEDS KNOWN. COOPERATIVE WITH CARE. BP AND HR STABLE. AFEBRILE. SATURATIONS >95% ON ROOM AIR. RESPIRATIONS EVEN AND UNLABORED. DENIES CP/PRESSURE/SOB. PT WITH DIARRHEA BEGINNING OF SHIFT, PRN MEDICATIONS GIVEN, SEE EMAR. SBA TO AND FROM BATHROOM VIA FWW. ABLE TO REPOS IND IN BED. PLAN FOR POSSIBLE D/C THIS AM. BED IN LOW, CALL LIGHT IN REACH, WILL REPORT TO ONCOMING RN.
[2022-07-13] MEDS ORDERED: AZIT500 PO (10:15)
[2022-07-13 10:27] LABS: BASOPHILS ABSOLUTE AUTO 0.01 K/mm3 (0.00-0.23); BASOPHILS PERCENT AUTO 0 % (0-2); EOSINOPHILS PERCENT AUTO 0 % (0-6); Hematocrit 30.3 % (33.0-51.0); Hemoglobin 9.5 g/dL (11.5-16.0); IMMATURE GRAN PERCENT AUTO 1 % (0-1); LYMPHOCYTES ABSOLUTE AUTO 0.78 K/mm3 (0.84-5.20); LYMPHOCYTES PERCENT AUTO 4 % (21-46); MONOCYTES ABSOLUTE AUTO 1.36 K/mm3 (0.16-1.47); MONOCYTES PERCENT AUTO 8 % (4-13); Mean Corpuscular HGB 29.3 pg (26.0-34.0); Mean Corpuscular HGB Conc 31.4 g/dL (31.5-36.5); Mean Corpuscular Volume 94 fL (80-100); Mean Platelet Volume 9.1 fL (9.1-12.4); NEUTROPHILS ABSOLUTE AUTO 15.43 K/mm3 (1.96-9.15); NEUTROPHILS PERCENT AUTO 87 % (41-73); Platelet Count 337 K/mm3 (150-400); RDW Coefficient Variation 16.1 % (11.7-14.2); RDW Standard Deviation 55.8 fL (35.1-46.3); Red Blood Cell Count 3.24 M/mm3 (3.80-5.20); White Blood Cell Count 17.68 K/mm3 (4.00-11.30)
--- NOTE | 2022-07-13 10:57 | NUR ---
DISHCHARGE SUMMARY PT WAS TRANSPORTED BY WHEELCHAIR TO PERSONAL VEHICLE. ALL PERSONAL BELONGINGS AND DISCHARGE INSTRUCTIONS WERE IN THE POSSESSION OF THE PT'S SPOUSE. ALL QUESTIONS AND CONCERNS WERE ADDRESSED PRIOR TO DISCHARGE. PT VERBALIZED AN UNDERSTANDING OF ALL INSTRUCTIONS.
[2022-07-13 11:07] LABS: Albumin, Blood 2.8 g/dL (3.4-5.0); Albumin/Globulin Ratio 0.8 (0.8-1.8); Bilirubin, Total 0.2 mg/dL (0.1-1.0); Bun/Creatinine Ratio 20.4 (12.0-20.0); Creatinine, Blood 0.83 mg/dL (0.40-1.00); Globulin, Blood 3.7 g/dL (2.2-4.0); Potassium, Blood 3.9 mmol/L (3.5-5.5); Total Protein, Blood 6.5 g/dL (6.4-8.2)
== END 2022-07-13 10:56 | disposition home or self-care (01) | DRG 871 ==
LOC: ER 20:35 → PCU 07-12 02:10
PROVIDERS: Family Medicine; Student in an Organized Health Care Education/Training Program; ADMIT Internal Medicine
PROC: 3E03329 Introduction of Other Anti-infective into Peripheral Vein, Percutaneous Approach (ICD-10-PCS; principal; 2022-07-12)
PROC: 8E0ZXY6 Isolation (ICD-10-PCS; 2022-07-12)
PROC: XW033E5 Introduction of Remdesivir Anti-infective into Peripheral Vein, Percutaneous Approach, New Technology Group 5 (ICD-10-PCS; 2022-07-12)
PROC: 3E0333Z Introduction of Anti-inflammatory into Peripheral Vein, Percutaneous Approach (ICD-10-PCS; 2022-07-12)
DX: A41.89 Other specified sepsis (principal); J18.9 Pneumonia, unspecified organism; U07.1 COVID-19; D84.89 Other immunodeficiencies; A04.5 Campylobacter enteritis; M41.9 Scoliosis, unspecified; G89.4 Chronic pain syndrome; I10 Essential (primary) hypertension; E78.5 Hyperlipidemia, unspecified; I35.0 Nonrheumatic aortic (valve) stenosis; K21.9 Gastro-esophageal reflux disease without esophagitis; M19.90 Unspecified osteoarthritis, unspecified site; Z90.710 Acquired absence of both cervix and uterus; Z98.890 Other specified postprocedural states; Z85.3 Personal history of malignant neoplasm of breast; Z90.12 Acquired absence of left breast and nipple; Z88.0 Allergy status to penicillin; Z91.048 Other nonmedicinal substance allergy status; Z79.890 Hormone replacement therapy; Z79.899 Other long term (current) drug therapy
CPT/HCPCS: 0241U; 36415; 71046; 80053; 83605; 83880; 84145; 84484; 85025; 85610; 87507; 93005; 93010; 94640; 94664; 96365; 96366; 96375; 99285-25; A9270; J0248; J0456; J0696; J1650; J2930; J7030; J7050

== ENCOUNTER → 2022-07-28 | Outpatient (CLI) | payer MEDICARE ==
[~2022-07-28] MED LIST changes: +AZIT500 PO
== END ==
LOC: PLD 10:52 → LAB SHORT 10:52
DX: D48.5 Neoplasm of uncertain behavior of skin (principal)
CPT/HCPCS: 88305

== ENCOUNTER → 2022-08-07 | Outpatient (CLI) | payer MEDICARE ==
[2022-08-10 10:12] LABS: Stool Occult Bld Immuno 1 Negative (NEGATIVE)
== END | disposition home or self-care (01) ==
LOC: LAB SHORT 07:30
PROVIDERS: Internal Medicine
DX: D53.9 Nutritional anemia, unspecified (principal)
CPT/HCPCS: 82274

== ENCOUNTER 2022-12-07 08:05 | Emergency (ER) | payer MEDICARE ==
[~2022-12-07] VITALS: Ht 170.2 cm; Wt 74.8 kg
[2022-12-07] MEDS ORDERED: Robaxin750 MG PO (12:59)
[2022-12-07] MEDS ORDERED: METPRE4DP PO (12:59)
[2022-12-07] MEDS ORDERED: LIDO700A20 TOP (12:59)
[2022-12-07 13:30] VITALS: BP 147/78
== END 2022-12-07 14:07 | disposition home or self-care (01) ==
LOC: ER 08:05
DX: M54.50 Low back pain, unspecified (principal); G89.29 Other chronic pain; I10 Essential (primary) hypertension; K21.9 Gastro-esophageal reflux disease without esophagitis; Z88.0 Allergy status to penicillin; Z91.048 Other nonmedicinal substance allergy status; Z79.899 Other long term (current) drug therapy
CPT/HCPCS: 72100; A9270; J1100; J1170

== ENCOUNTER 2023-01-03 12:55 | Emergency (ER) | payer MEDICARE ==
[~2023-01-03] VITALS: Ht 165.1 cm; Wt 72.6 kg
[~2023-01-03 12:55] MED LIST changes: +LIDO700A20 TOP; +METPRE4DP PO; +Robaxin750 MG PO
[2023-01-03] MEDS ORDERED: Prednisone10 MG PO (16:18)
[2023-01-03 17:00] VITALS: BP 142/68
[2023-01-03] MEDS ORDERED: GABA300 PO (17:00)
== END 2023-01-03 17:52 | disposition home or self-care (01) ==
LOC: ER 12:55
DX: M16.11 Unilateral primary osteoarthritis, right hip (principal); M54.41 Lumbago with sciatica, right side; Z88.0 Allergy status to penicillin; Z91.048 Other nonmedicinal substance allergy status; Z79.899 Other long term (current) drug therapy; Z79.52 Long term (current) use of systemic steroids; I10 Essential (primary) hypertension; E78.5 Hyperlipidemia, unspecified; K21.9 Gastro-esophageal reflux disease without esophagitis; M19.90 Unspecified osteoarthritis, unspecified site
CPT/HCPCS: 73502; 96374; 99284-25; A9270; J1170

== ENCOUNTER 2023-01-26 12:44 | Inpatient (IN) | payer MEDICARE ==
[~2023-01-26] VITALS: Ht 165.1 cm; Wt 70.1 kg
[~2023-01-26 12:44] MED LIST changes: +GABA300 PO; +Prednisone10 MG PO
[2023-01-26 13:56] LABS: BASOPHILS ABSOLUTE AUTO 0.02 K/mm3 (0.00-0.23); BASOPHILS PERCENT AUTO 0 % (0-2); EOSINOPHILS ABSOLUTE AUTO 0.01 K/mm3 (0.00-0.68); EOSINOPHILS PERCENT AUTO 0 % (0-6); Hemoglobin 13.3 g/dL (11.5-16.0); IMMATURE GRAN ABSOLUTE AUTO 0.11 K/mm3 (0.00-0.10); IMMATURE GRAN PERCENT AUTO 1 % (0-1); LYMPHOCYTES ABSOLUTE AUTO 1.68 K/mm3 (0.84-5.20); LYMPHOCYTES PERCENT AUTO 12 % (21-46); MONOCYTES ABSOLUTE AUTO 0.55 K/mm3 (0.16-1.47); MONOCYTES PERCENT AUTO 4 % (4-13); Mean Corpuscular HGB 33.5 pg (26.0-34.0); Mean Corpuscular HGB Conc 33.3 g/dL (31.5-36.5); Mean Corpuscular Volume 101 fL (80-100); Mean Platelet Volume 8.8 fL (9.1-12.4); NEUTROPHILS ABSOLUTE AUTO 11.49 K/mm3 (1.96-9.15); NEUTROPHILS PERCENT AUTO 83 % (41-73); Platelet Count 331 K/mm3 (150-400); RDW Coefficient Variation 14.6 % (11.7-14.2); RDW Standard Deviation 54.8 fL (35.1-46.3); Red Blood Cell Count 3.97 M/mm3 (3.80-5.20); White Blood Cell Count 13.86 K/mm3 (4.00-11.30)
[2023-01-26 14:35] LABS: Albumin, Blood 2.6 g/dL (3.4-5.0); Albumin/Globulin Ratio 0.6 (0.8-1.8); Bilirubin, Total 0.3 mg/dL (0.1-1.0); Bun/Creatinine Ratio 28.3 (12.0-20.0); Calcium, Blood 8.8 mg/dL (8.5-10.1); Creatinine, Blood 0.78 mg/dL (0.40-1.00); Globulin, Blood 4.3 g/dL (2.2-4.0); Potassium, Blood 4.6 mmol/L (3.5-5.5); Total Protein, Blood 6.9 g/dL (6.4-8.2)
[2023-01-26 16:34] VITALS: BP 150/79
[2023-01-26] MEDS ORDERED: UNISOM PM PAIN1 EACH PO (17:15)
--- NOTE | 2023-01-26 18:30 | NUR ---
ADMISSION PATIENT ADMITTED TO MEDICAL FLOOR FOR UNCONTROLED PAIN. PATIENT STATES THAT SHE RECENTLY HAD SOME INJECTIONS TO HER LOWER BACK AND THEN DEVELOPED THESE NEW PAINS THAT EVEN WAKE HER UP AT NIGHT. PATIENT NOTED TO HAVE MUSCLE SPASM TYPE PAIN EPISODES. NO PAIN MEDICATIONS DOCUMENTED GIVEN IN ED. PATIENT STATES THAT SHE WAS NOT GIVEN ANYTHING FOR PAIN. PATIENT MEDICATED WITH ORAL PAIN MEDS ON ARRIVAL TO MEDICAL FLOOR. PATIENT CONTINUED TO HAVE EPISODES OF SPASMS. PATIENT MEDICATED WITH IV PAIN MEDS WITH SOME RELEIF. PATIENT CONTINUES TO HAVE EPISODES OF SPASMS BUT DECREASED AFTER IV PAIN MEDICATIONS. MRI QUESTIONARE COMPLETED AND FAXED TO MRI.
[2023-01-26 19:12] VITALS: BP 159/85
--- NOTE | 2023-01-27 02:34 | NUR ---
PT EDUCATED ON [facility] FIRE SAFETY IGNITION/EXPLOSIVE SOURCES NON SMOKING POLICY AND VERBALIZED UNDERSTANDING.
--- NOTE | 2023-01-27 03:39 | NUR ---
SHIFT SUMMARY NOC PT A/O X 4. PLEASANT AND COOPERATIVE WITH CARE. PT ACUTE ON CHRONIC BACK PAIN BEING MANAGED WITH FENTANYL AND NORCO AROUND THE CLOCK. PT REPORTS TAKING MUSCLE RELAXER RX AT HOME. SPOUSE WILL BRING IN RX LIST IN AM. NO ACUTE CHANGES TO REPORT. PT HAS NEW IV ACCESS IN [place] AFTER OTHER IV SITE WAS LEAKING. PT IS CURRENTLY RESTING WITH BED IN LOWEST POSITION, AND CALL LIGHT WITHIN REACH.
[2023-01-27 04:03] VITALS: BP 153/75
[2023-01-27 04:33] LABS: BASOPHILS ABSOLUTE AUTO 0.02 K/mm3 (0.00-0.23); BASOPHILS PERCENT AUTO 0 % (0-2); EOSINOPHILS ABSOLUTE AUTO 0.04 K/mm3 (0.00-0.68); EOSINOPHILS PERCENT AUTO 0 % (0-6); Hematocrit 41.2 % (33.0-51.0); Hemoglobin 13.5 g/dL (11.5-16.0); IMMATURE GRAN ABSOLUTE AUTO 0.06 K/mm3 (0.00-0.10); IMMATURE GRAN PERCENT AUTO 1 % (0-1); LYMPHOCYTES PERCENT AUTO 25 % (21-46); MONOCYTES ABSOLUTE AUTO 1.01 K/mm3 (0.16-1.47); MONOCYTES PERCENT AUTO 8 % (4-13); Mean Corpuscular HGB 33.1 pg (26.0-34.0); Mean Corpuscular HGB Conc 32.8 g/dL (31.5-36.5); Mean Corpuscular Volume 101 fL (80-100); Mean Platelet Volume 8.8 fL (9.1-12.4); NEUTROPHILS ABSOLUTE AUTO 8.68 K/mm3 (1.96-9.15); NEUTROPHILS PERCENT AUTO 66 % (41-73); Platelet Count 343 K/mm3 (150-400); RDW Coefficient Variation 14.6 % (11.7-14.2); RDW Standard Deviation 54.9 fL (35.1-46.3); Red Blood Cell Count 4.08 M/mm3 (3.80-5.20); White Blood Cell Count 13.11 K/mm3 (4.00-11.30)
[2023-01-27 04:51] LABS: Albumin, Blood 2.8 g/dL (3.4-5.0); Albumin/Globulin Ratio 0.6 (0.8-1.8); Bilirubin, Total 0.4 mg/dL (0.1-1.0); Bun/Creatinine Ratio 24.1 (12.0-20.0); Calcium, Blood 9.2 mg/dL (8.5-10.1); Creatinine, Blood 0.87 mg/dL (0.40-1.00); Globulin, Blood 4.5 g/dL (2.2-4.0); Total Protein, Blood 7.3 g/dL (6.4-8.2)
[2023-01-27 07:42] VITALS: BP 157/71
[2023-01-27 15:33] VITALS: BP 131/73
--- NOTE | 2023-01-27 17:36 | NUR ---
SHIFT SUMMARY PT VERY PAINFUL THROUGH THE DAY. MEDICATED WITH ORAL AND IV PAIN MEDS WITH MIDIMAL DIFFERENCE OF EFFECTIVENESS WITH EITHER. UP TO CHAIR AFTER O.T. THIS MORNING BUT DIDN'T THINK SHE COULD HANDLE A SHOWER AND TOOK A SPONGE BATH INSTEAD. ICE PACKS APPLIED TO BACK TO AID IN COMFORT. REPOSITIONS INDEPENDENTLY IN BED. FAMILY AT BEDSIDE THIS AFTERNOON. FWW FOR ANY MOBILITY.
[2023-01-27 20:21] VITALS: BP 141/70
--- NOTE | 2023-01-28 03:20 | NUR ---
PT EDUCATED ON [facility] FIRE SAFETY IGNITION/EXPOLOSIVE SOURCES NON SMOKING POLICY AND VERBALIZED UNDERSTANDING.
--- NOTE | 2023-01-28 03:24 | NUR ---
SHIFT SUMMARY NOC PT A/O X 4. PLEASANT AND COOPERATIVE WITH CARE. ACUTE/CHRONIC BACK PAIN BEING MANAGED PER EMAR. NO ACUTE CHANGES TO REPORT. PT WAS INC OF URINE X 1, OTHERWISE CONTINENT AND USING BSC WITH 1PA. PT HAD LUMBAR MRI PERFORMED YESTERDAY FINDING DISCITIS/OSTEOMYELITIS IN L1/L2, FOLLOW UP WITH FACILITY IN [place] AFTER DISCHARGE FOR SECOND OPINION IS CURRENT PLAN. PT STARTED ON VANCOMYCIN YESTERDAY FOR OSTEOMYELITIS. PT IS CURRENTLY RESTING WITH BED IN LOWEST POSITION, AND CALL LIGHT WITHIN REACH.
[2023-01-28 04:22] VITALS: BP 154/79
--- NOTE | 2023-01-28 07:49 | NUR ---
CALLED DR ADAMS- PT HAS HAD NO MORNING LAB DRAW, NONE ORDERED, SPOKE TO , HE IS AWARE AND IS PLACING ORDERS NOW.
[2023-01-28 07:52] VITALS: BP 138/69
[2023-01-28 08:54] LABS: BASOPHILS ABSOLUTE AUTO 0.04 K/mm3 (0.00-0.23); BASOPHILS PERCENT AUTO 0 % (0-2); EOSINOPHILS ABSOLUTE AUTO 0.07 K/mm3 (0.00-0.68); EOSINOPHILS PERCENT AUTO 1 % (0-6); Hematocrit 40.2 % (33.0-51.0); Hemoglobin 13.4 g/dL (11.5-16.0); IMMATURE GRAN ABSOLUTE AUTO 0.09 K/mm3 (0.00-0.10); IMMATURE GRAN PERCENT AUTO 1 % (0-1); LYMPHOCYTES ABSOLUTE AUTO 2.01 K/mm3 (0.84-5.20); LYMPHOCYTES PERCENT AUTO 18 % (21-46); MONOCYTES ABSOLUTE AUTO 1.04 K/mm3 (0.16-1.47); MONOCYTES PERCENT AUTO 9 % (4-13); Mean Corpuscular HGB 33.9 pg (26.0-34.0); Mean Corpuscular HGB Conc 33.3 g/dL (31.5-36.5); Mean Corpuscular Volume 102 fL (80-100); Mean Platelet Volume 8.8 fL (9.1-12.4); NEUTROPHILS ABSOLUTE AUTO 8.22 K/mm3 (1.96-9.15); NEUTROPHILS PERCENT AUTO 72 % (41-73); Platelet Count 281 K/mm3 (150-400); RDW Coefficient Variation 14.4 % (11.7-14.2); RDW Standard Deviation 53.9 fL (35.1-46.3); Red Blood Cell Count 3.95 M/mm3 (3.80-5.20); White Blood Cell Count 11.47 K/mm3 (4.00-11.30)
[2023-01-28 09:25] LABS: Calcium, Blood 8.9 mg/dL (8.5-10.1); Creatinine, Blood 0.79 mg/dL (0.40-1.00); Potassium, Blood 3.9 mmol/L (3.5-5.5)
[2023-01-28 16:26] VITALS: BP 153/82
[2023-01-28 17:09] LABS: A/G RATIO 0.8 (0.7-1.7); ALBUMIN 2.9 g/dL (2.9-4.4); ALPHA-1-GLOBULIN 0.3 g/dL (0.0-0.4); ALPHA-2-GLOBULIN 1.4 g/dL (0.4-1.0); BETA GLOBULIN 1.1 g/dL (0.7-1.3); GAMMA GLOBULIN 0.7 g/dL (0.4-1.8); GLOBULIN, TOTAL 3.5 g/dL (2.2-3.9); M-SPIKE Not Observed g/dL (Not Observed); PROTEIN, TOTAL, SERUM 6.4 g/dL (6.0-8.5)
--- NOTE | 2023-01-28 18:11 | NUR ---
SHIFT SUMMARY- PT ALERT, ORIENTED, 1P ASSIST TO THE BATHROOM. PT WAS DIAGNOSED WITH OSTEOMEYOLITIS. SHE HAS TERRIBLE PAIN IN HER SPINE, MEDICATED WITH PO AND IV PAIN MEDS, APPLIED A HEATING PAD, AND PT WAS ASSISTED INTO A WARM SHOWER. PT IN BED, PILLOWS IN PLACE UNDER HER KNEES TO AID IN OFFLOADING THE PRESSURE FROM THE INFECTED LUMBAR VERTEBRE. PLAN WAS TO DO A CT GUIDED BONE BIOPSY HOWEVER THE RADIOLOGIS CAPABLE OF DOING THIS IS OFF UNTIL TUESDAY. PLAN WAS TO ATTEMPT A COBRA TRANSFER, HOWEVER THERE ARE NO BEDS AVAILABLE. THE BIOPSY NEEDS TO BE DONE BEFORE TUESDAY TO HELP NARROW DOWN THE ANTIBIOTICS NEEDED. THE PT IS ON ABX AT THIS TIME. D/T NO BEDS AVAILABLE, IT APPEARS THAT A TRANSFER IS NOT GOING TO BE POSSIBLE. PT IN BED, CALL LIGHT IN REACH, IV ACCESS WAS LOST THIS AFTERNOON AND A NEW 22G IV WAS PLACED IN THE R FOREARM. FLUSHES WELL. PT HAS NO CURRENT S&S OF DISTRESS.
[2023-01-28 19:16] VITALS: BP 142/77
--- NOTE | 2023-01-29 04:01 | NUR ---
SHIFT SUMMARY PATIENT HAD NO ACUTE CHANGES. AXOX 4 AND ONE ASSIST W/FWW GB TO BSC. PIV REMAINS INTACT. IV ABX INFUSED. ON ROOM AIR. DENIES CHEST PAIN, SOB, AND N/V. REPORTED LOW BACK PAIN X TWO AND NORCO GIVEN PER EMAR. VSS/AFEBRILE. COOPERATIVE WITH CARE. CALL LIGHT IN REACH. BED IN LOWEST POSITION. WILL CONTINUE TO MONITOR UNTIL DAY SHIFT NURSE ASSUMES CARE.
[2023-01-29 04:42] VITALS: BP 126/56
[2023-01-29 06:34] LABS: BASOPHILS ABSOLUTE AUTO 0.04 K/mm3 (0.00-0.23); BASOPHILS PERCENT AUTO 0 % (0-2); EOSINOPHILS ABSOLUTE AUTO 0.09 K/mm3 (0.00-0.68); EOSINOPHILS PERCENT AUTO 1 % (0-6); Hematocrit 37.7 % (33.0-51.0); Hemoglobin 12.4 g/dL (11.5-16.0); IMMATURE GRAN PERCENT AUTO 1 % (0-1); LYMPHOCYTES ABSOLUTE AUTO 2.18 K/mm3 (0.84-5.20); LYMPHOCYTES PERCENT AUTO 20 % (21-46); MONOCYTES ABSOLUTE AUTO 0.93 K/mm3 (0.16-1.47); MONOCYTES PERCENT AUTO 9 % (4-13); Mean Corpuscular HGB 33.3 pg (26.0-34.0); Mean Corpuscular HGB Conc 32.9 g/dL (31.5-36.5); Mean Corpuscular Volume 101 fL (80-100); Mean Platelet Volume 8.8 fL (9.1-12.4); NEUTROPHILS ABSOLUTE AUTO 7.58 K/mm3 (1.96-9.15); NEUTROPHILS PERCENT AUTO 69 % (41-73); Platelet Count 287 K/mm3 (150-400); RDW Coefficient Variation 14.2 % (11.7-14.2); RDW Standard Deviation 52.7 fL (35.1-46.3); Red Blood Cell Count 3.72 M/mm3 (3.80-5.20); White Blood Cell Count 10.92 K/mm3 (4.00-11.30)
[2023-01-29 06:57] LABS: Bun/Creatinine Ratio 31.7 (12.0-20.0); Calcium, Blood 8.7 mg/dL (8.5-10.1); Creatinine, Blood 0.76 mg/dL (0.40-1.00); Potassium, Blood 4.1 mmol/L (3.5-5.5)
[2023-01-29 07:36] VITALS: BP 144/72
--- NOTE | 2023-01-29 16:25 | NUR ---
SHIFT SUMMARY PATIENT IS ALERT AND ORIENTED. PATIENT HAS HAD NO ACUTE EVENTS THIS SHIFT. VITAL SIGNS REVIEWED. PATIENT HAS HAD NO INSTANCES OF FEVER OR CHILLS. PATIENT HAS REPORTED PAIN ALL SHIFT AND MEDICATED PER EMAR. PATIENT HAS NOT COMPLAINED OF SOB, NAUSEA OR VOMITTING THIS SHIFT. PATIENT IS A 1 PERSON ASSIST TO BSC WITH NO ISSUES. BED IN LOCKED AND LOWEST POSITION. CALL LIGHT IN PLACE. WILL MONITOR UNTIL SHIFT CHANGE.
[2023-01-29 19:18] VITALS: BP 139/66
[2023-01-29 20:56] LABS: Vancomycin, Trough 12.8 ug/mL (5.0-10.0)
--- NOTE | 2023-01-30 04:07 | NUR ---
SHIFT SUMMARY PATIENT HAD NO ACUTE CHANGES. AXOX 4 AND ONE ASSIST WITH FWW TO BSC. PIV REMAINS INTACT. IV ABX INFUSED. REPORTED BACK PAIN X TWO AND NORCO AND IV MORPHINE 4 MG GIVEN ALTERNATING. ABLE TO SLEEP WITH PAIN MANAGEMENT. DENIES CHEST PAIN, SOB, AND N/V. VSS/AFEBRILE. WATCHED TV FIRST PART OF SHIFT. CALL LIGHT IN REACH. BED IN LOWEST POSITION. WILL CONTINUE TO MONITOR UNTIL DAY SHIFT NURSE ASSUMES CARE.
[2023-01-30 04:31] VITALS: BP 164/61
[2023-01-30 05:46] LABS: BASOPHILS ABSOLUTE AUTO 0.04 K/mm3 (0.00-0.23); BASOPHILS PERCENT AUTO 0 % (0-2); EOSINOPHILS PERCENT AUTO 1 % (0-6); Hematocrit 39.8 % (33.0-51.0); Hemoglobin 12.9 g/dL (11.5-16.0); IMMATURE GRAN ABSOLUTE AUTO 0.08 K/mm3 (0.00-0.10); IMMATURE GRAN PERCENT AUTO 1 % (0-1); LYMPHOCYTES ABSOLUTE AUTO 3.24 K/mm3 (0.84-5.20); LYMPHOCYTES PERCENT AUTO 27 % (21-46); MONOCYTES ABSOLUTE AUTO 0.91 K/mm3 (0.16-1.47); MONOCYTES PERCENT AUTO 8 % (4-13); Mean Corpuscular HGB 33.1 pg (26.0-34.0); Mean Corpuscular HGB Conc 32.4 g/dL (31.5-36.5); Mean Corpuscular Volume 102 fL (80-100); Mean Platelet Volume 8.9 fL (9.1-12.4); NEUTROPHILS ABSOLUTE AUTO 7.81 K/mm3 (1.96-9.15); NEUTROPHILS PERCENT AUTO 64 % (41-73); Platelet Count 327 K/mm3 (150-400); RDW Coefficient Variation 14.4 % (11.7-14.2); RDW Standard Deviation 53.7 fL (35.1-46.3); White Blood Cell Count 12.18 K/mm3 (4.00-11.30)
[2023-01-30 06:05] LABS: Bun/Creatinine Ratio 27.7 (12.0-20.0); Calcium, Blood 8.9 mg/dL (8.5-10.1); Creatinine, Blood 0.83 mg/dL (0.40-1.00); Potassium, Blood 3.7 mmol/L (3.5-5.5)
[2023-01-30 07:42] VITALS: BP 136/70
[2023-01-30 17:03] VITALS: BP 157/78
--- NOTE | 2023-01-30 17:05 | NUR ---
SHIFT SUMMARY PATIENT IS ALERT AND ORIENTED. PATIENT HAS HAD NO ACUTE EVENTS THIS SHIFT. PATIENT VITAL SIGNS REVIEWED. PATIENT HAS NOT COMPLAINED OF SOB, NAUSEA, OR VOMITTING THIS SHIFT. PATIENT HAS COMPLAINED OF PAIN AND MEDICATED PER EMAR. PATIENT HAS BEEN A STANDBY ASSIST THIS SHIFT WITH INCREASING STRENGTH. PATIENT HAS ABX INFUSING ORDERED. BED IN LOCKED AND LOWEST POSITION. CALL LIGHT IN PLACE. WILL MONITOR UNTIL SHIFT CHANGE.
[2023-01-30 19:45] VITALS: BP 160/65
[2023-01-30 20:28] LABS: Vancomycin, Trough 15.1 ug/mL (5.0-10.0)
[2023-01-31 03:56] VITALS: BP 156/68
--- NOTE | 2023-01-31 04:25 | NUR ---
SHIFT SUMMARY PATIENT HAD NO ACUTE CHANGES. AXOX 4 AND ONE ASSIST TO BSC. PIV INFILTRATED AND NEW PIV PLACED. IV ABX INFUSED. REPORTED BACK PAIN X THREE AND NORCO GIVEN PER EMAR WITH GOOD EFFECT. DENIES CHEST PAIN, SOB, AND N/V. VSS/AFEBRILE. PATIENT READING BOOK FOR FIRST FEW HOURS. CALL LIGHT IN REACH. BED IN LOWEST POSIITON. WILL CONTINUE TO MONITOR UNTIL DAY SHIFT NURSE ASSUMES CARE.
[2023-01-31 05:23] LABS: BASOPHILS ABSOLUTE AUTO 0.03 K/mm3 (0.00-0.23); BASOPHILS PERCENT AUTO 0 % (0-2); EOSINOPHILS ABSOLUTE AUTO 0.11 K/mm3 (0.00-0.68); EOSINOPHILS PERCENT AUTO 1 % (0-6); Hematocrit 35.4 % (33.0-51.0); Hemoglobin 11.6 g/dL (11.5-16.0); IMMATURE GRAN ABSOLUTE AUTO 0.11 K/mm3 (0.00-0.10); IMMATURE GRAN PERCENT AUTO 1 % (0-1); LYMPHOCYTES ABSOLUTE AUTO 2.41 K/mm3 (0.84-5.20); LYMPHOCYTES PERCENT AUTO 22 % (21-46); MONOCYTES ABSOLUTE AUTO 0.94 K/mm3 (0.16-1.47); MONOCYTES PERCENT AUTO 9 % (4-13); Mean Corpuscular HGB 33.3 pg (26.0-34.0); Mean Corpuscular HGB Conc 32.8 g/dL (31.5-36.5); Mean Corpuscular Volume 102 fL (80-100); Mean Platelet Volume 9.1 fL (9.1-12.4); NEUTROPHILS ABSOLUTE AUTO 7.51 K/mm3 (1.96-9.15); NEUTROPHILS PERCENT AUTO 68 % (41-73); Platelet Count 304 K/mm3 (150-400); RDW Coefficient Variation 14.4 % (11.7-14.2); RDW Standard Deviation 53.3 fL (35.1-46.3); Red Blood Cell Count 3.48 M/mm3 (3.80-5.20); White Blood Cell Count 11.11 K/mm3 (4.00-11.30)
[2023-01-31 05:50] LABS: Albumin, Blood 2.5 g/dL (3.4-5.0); Albumin/Globulin Ratio 0.6 (0.8-1.8); Bilirubin, Total 0.2 mg/dL (0.1-1.0); Bun/Creatinine Ratio 35.4 (12.0-20.0); Calcium, Blood 8.4 mg/dL (8.5-10.1); Creatinine, Blood 0.71 mg/dL (0.40-1.00); Globulin, Blood 3.9 g/dL (2.2-4.0); Potassium, Blood 3.8 mmol/L (3.5-5.5); Total Protein, Blood 6.4 g/dL (6.4-8.2)
[2023-01-31 07:35] VITALS: BP 140/68
[2023-01-31 16:39] VITALS: BP 140/66
--- NOTE | 2023-01-31 18:08 | NUR ---
PATIENT HAD A BETTER DAY TODAY. PAIN BETTER CONTROLLED WITH OXYCODONE AND TYLENOL. MORPHINE GIVEN FOR BREAKTHROUGH PAIN. PATIENT AMBULATED AROUND THE ENTIRE UNIT WITH FWW, GB AND SBA, GAIT STEADY. CONTINUES TO HAVE SPASMS TO LOWER BACK, ROBAXIN INCREASED WITH SOME IMPROVEMENT PER PATIENT. PATIENT WILL NEED SENIOR CARE ANTIBIOTICS AND WILL NEED A PICC LINE PLACED PER DR. REID. SKIN INTACT. PATIENT DID HAVE A BM TODAY, MAY NEED SOME BOWEL CARE ORDERS. VERY PLEASANT AND COOPERATIVE WITH CARE, ABLE TO MAKE NEEDS KNOWN.
[2023-01-31 19:45] VITALS: BP 155/66
[2023-02-01 05:44] VITALS: BP 163/86
--- NOTE | 2023-02-01 05:47 | NUR ---
SUMMARY: PT A/OX4, CALLS APPROPRIATELY TO SPECIFY NEEDS AND IS PLEASANT AND COOPERATIVE W/CARE. SHE'S SBA TO TOILET D/T WEAKNESS AND PAIN R/T OSTEOMYLELITIS. IV ABX RECEIVED PER EMAR THEN SL'D. PAIN MANAGEMENT SEEMS TO BE IMPROVING. SHE KEEPS KPAD IN PLACE TO LOW BACK AND RECEIVED PRN OXY APPROX Q4H, TYLENOL Q8H AND X1 DOSE MORPHINE IV 4MG FOR BREAKTHROUGH PAIN. NEW DOSE OF ROBAXIN SEEMED EFFECTIVE AT RELIEVING SPASMS. NO ACUTE CHANGES, VSS AND AFEBRILE. FIRE SAFETY ASSESSMENT AND EDUCATION PROVIDED. PICC NEEDED PRIOR TO D/C FOR GILL BOX FIXER ABX. WCTM AND REPORT TO DAY RN.
[2023-02-01 07:46] VITALS: BP 136/97
[2023-02-01 17:27] VITALS: BP 130/63
--- NOTE | 2023-02-01 18:20 | NUR ---
PATIENT A/OX4, UP AMBULATING IN HALLS WITH FWW AND SBA. ROBAXIN INCREASED TODAY AND MUSCLE SPASMS HAVE IMPROVED, PATIENT TOLERATED INCREASE WELL. PAIN 5-7/10 THROUGHOUT THE SHIFT WHICH IS AN IMPROVEMENT. PICC LINE PLACED TODAY TO RUE. VSS, ON RA. PLEASANT AND COOPERATIVE WITH CARE, CALLS APPROPRIATELY FOR ASSISTANCE.
[2023-02-01 20:36] VITALS: BP 153/70
[2023-02-02 04:33] VITALS: BP 153/99
--- NOTE | 2023-02-02 06:45 | NUR ---
SUMMARY: PT A/OX4, IS ABLE TO MAKE NEEDS KNOWN AND IS PLEASANT AND COOPERATIVE W/CARE. SHE'S AWARE OF LIMITATIONS AND IS INDEPENDENT/SBA IN ROOM PER JUDGEMENT. SHE REPORTED PAIN NOT WELL CONTROLLED AT START OF SHIFT WHEN PRN TYLENOL AND OXYCODONE WERE NOT YET DUE AND W/MORPHINE NO LONGER AVAILABLE FOR RARE BREAKTHROUGH PAIN. BUT INCREASED ROBAXIN DOSE WAS RECEIVED AT HS AND EXISTING REGIMEN SEEMED EFFECTIVE AT PROVIDING TOLERABLE RELIEF T/O REST OF NOCTE. LOW BACK PAIN NEVER IMPROVES BETTER THAN 5-6/10 AND SHE REQ'S PRN OXYCODONE APPROX Q4H AND TYLENOL APPROX Q8H W/ICE PACK IN PLACE. IV ABX RECEIVED VIA PICC THEN SL'D. SHE DENIED NEEDING BOWEL MEDS AT HS BUT STATED SHE'D LIKELY TAKE AM DOSE OF STOOL SOFTENER. NO ACUTE CHANGES, VSS/AFEBRILE. WCTM AND REPORT TO DAY RN.
[2023-02-02 07:07] LABS: BASOPHILS ABSOLUTE AUTO 0.04 K/mm3 (0.00-0.23); BASOPHILS PERCENT AUTO 0 % (0-2); EOSINOPHILS ABSOLUTE AUTO 0.13 K/mm3 (0.00-0.68); EOSINOPHILS PERCENT AUTO 1 % (0-6); Hematocrit 38.4 % (33.0-51.0); Hemoglobin 12.6 g/dL (11.5-16.0); IMMATURE GRAN ABSOLUTE AUTO 0.11 K/mm3 (0.00-0.10); IMMATURE GRAN PERCENT AUTO 1 % (0-1); LYMPHOCYTES ABSOLUTE AUTO 3.17 K/mm3 (0.84-5.20); LYMPHOCYTES PERCENT AUTO 30 % (21-46); MONOCYTES ABSOLUTE AUTO 0.76 K/mm3 (0.16-1.47); MONOCYTES PERCENT AUTO 7 % (4-13); Mean Corpuscular HGB 33.5 pg (26.0-34.0); Mean Corpuscular HGB Conc 32.8 g/dL (31.5-36.5); Mean Corpuscular Volume 102 fL (80-100); Mean Platelet Volume 8.9 fL (9.1-12.4); NEUTROPHILS ABSOLUTE AUTO 6.48 K/mm3 (1.96-9.15); NEUTROPHILS PERCENT AUTO 61 % (41-73); Platelet Count 323 K/mm3 (150-400); RDW Coefficient Variation 14.3 % (11.7-14.2); RDW Standard Deviation 53.2 fL (35.1-46.3); Red Blood Cell Count 3.76 M/mm3 (3.80-5.20); White Blood Cell Count 10.69 K/mm3 (4.00-11.30)
[2023-02-02 07:29] LABS: Albumin, Blood 2.9 g/dL (3.4-5.0); Anion Gap 3 mmol/L (6-16); Blood Urea Nitrogen 22 mg/dL (8-24); Bun/Creatinine Ratio 29.8 (12.0-20.0); CO2, Blood 31 mmol/L (21-32); Calcium, Blood 9.2 mg/dL (8.5-10.1); Chloride, Blood 107 mmol/L (98-108); Creatinine, Blood 0.74 mg/dL (0.40-1.00); Glomerular Filtration Rate 81 (60-); Glucose, Blood 89 mg/dL (70-99); Sodium, Blood 141 mmol/L (136-145)
[2023-02-02 08:14] VITALS: BP 139/58
[2023-02-02 15:17] VITALS: BP 136/69
--- NOTE | 2023-02-02 19:59 | NUR ---
SUMMARY- PT A/O X4. INDEPENDANT IN ROOM, STEADY ON FEET. HAVING PAIN IN LOW BACK FROM OSTEO- CONTROLLED WITH ROUTINE ROBAXIN/NEURONTIN AND PRN OXY AND TYLENOL. STATES PAIN IN INCREASED WITH MOVEMENT AND FEELS BETTER WHEN LAYING STILL IN BED USING ICE/HEAT. PT STATES SHE IS NORMALLY VERY ACTIVE AND HATES NOT BEING ABLE TO MOVE BECAUSE OF PAIN- PICC IS PRESENT IN TONI AND PT HOPEFUL TO DC IN THE AM WITH ABX TX. REPORTED ALL TO ADRIANA MONSALVE.
[2023-02-02 20:22] VITALS: BP 153/75
[2023-02-02 21:47] LABS: Vancomycin, Trough 17.3 ug/mL (5.0-10.0)
[2023-02-03 04:17] VITALS: BP 167/59
[2023-02-03 07:22] VITALS: BP 149/77
[2023-02-03] MEDS ORDERED: CEFTRIAXONE2 G1 IV (14:59)
[2023-02-03] MEDS ORDERED: DOCUZEN 8.6-501 EACH PO (15:00)
[2023-02-03] MEDS ORDERED: GABA300 PO (15:02)
[2023-02-03] MEDS ORDERED: Robaxin750 MG PO (15:03)
[2023-02-03] MEDS ORDERED: METO25 PO (15:04)
[2023-02-03] MEDS ORDERED: MIRALAX17 GM PO (15:06)
[2023-02-03] MEDS ORDERED: Percocet 10-321 EACH PO (15:06)
[2023-02-03] MEDS ORDERED: VISBIOME 112.51 EACH PO (15:06)
[2023-02-03] MEDS ORDERED: ACET500 PO (15:10)
--- NOTE | 2023-02-03 16:31 | NUR ---
PT DISCHARGE REIVEWED WITH PT AND DAUGHTER AND / IV POWERGLIDE LEFT FOR HOME ANTIBIOTICS. .[facility] HAS CONTACTED PT ABOUT ABX ADMIN. NO TELE. PT WHEELED TO DOOR AT [id number]
== END 2023-02-03 16:38 | disposition home health service (06) | DRG 540 ==
LOC: ER 12:44 → MEDS 12:45
PROVIDERS: Emergency Medicine; Family Medicine; ADMIT Internal Medicine
DX: M46.26 Osteomyelitis of vertebra, lumbar region (principal); J84.9 Interstitial pulmonary disease, unspecified; G89.29 Other chronic pain; M46.46 Discitis, unspecified, lumbar region; I10 Essential (primary) hypertension; K21.9 Gastro-esophageal reflux disease without esophagitis; E78.5 Hyperlipidemia, unspecified; M19.90 Unspecified osteoarthritis, unspecified site; I35.0 Nonrheumatic aortic (valve) stenosis; K57.90 Diverticulosis of intestine, part unspecified, without perforation or abscess without bleeding; Z85.3 Personal history of malignant neoplasm of breast; Z79.52 Long term (current) use of systemic steroids; Z79.891 Long term (current) use of opiate analgesic; Z79.899 Other long term (current) drug therapy; Z90.12 Acquired absence of left breast and nipple; Z88.0 Allergy status to penicillin; Z90.710 Acquired absence of both cervix and uterus; Z91.048 Other nonmedicinal substance allergy status; Z98.890 Other specified postprocedural states; Z90.722 Acquired absence of ovaries, bilateral; Z90.79 Acquired absence of other genital organ(s)
CPT/HCPCS: 36415; 72131; 72158; 72192; 80048; 80053; 80069; 80202; 84165; 85025; 85651; 86140; 86141; 87040; 96372; 96374; 96375; 96376; 97110; 97116; 97162; 97166; 97530; 97535; 99284-25; A9270; A9579; G0378; J0696; J1650; J2270; J3010; J3370; J7050; J7512

== ENCOUNTER → 2023-02-12 | Outpatient (CLI) | payer MEDICARE ==
[~2023-02-12] MED LIST changes: +ACET500 PO; +CEFTRIAXONE2 G1 IV; +DOCUZEN 8.6-501 EACH PO; +METO25 PO; +MIRALAX17 GM PO; +Percocet 10-321 EACH PO; +UNISOM PM PAIN1 EACH PO
[2023-02-12 15:02] LABS: BASOPHILS ABSOLUTE AUTO 0.05 K/mm3 (0.00-0.23); BASOPHILS PERCENT AUTO 1 % (0-2); EOSINOPHILS ABSOLUTE AUTO 0.15 K/mm3 (0.00-0.68); EOSINOPHILS PERCENT AUTO 1 % (0-6); Hematocrit 36.5 % (33.0-51.0); Hemoglobin 11.8 g/dL (11.5-16.0); IMMATURE GRAN ABSOLUTE AUTO 0.09 K/mm3 (0.00-0.10); IMMATURE GRAN PERCENT AUTO 1 % (0-1); LYMPHOCYTES ABSOLUTE AUTO 2.65 K/mm3 (0.84-5.20); LYMPHOCYTES PERCENT AUTO 25 % (21-46); MONOCYTES ABSOLUTE AUTO 1.14 K/mm3 (0.16-1.47); MONOCYTES PERCENT AUTO 11 % (4-13); Mean Corpuscular HGB 34.3 pg (26.0-34.0); Mean Corpuscular HGB Conc 32.3 g/dL (31.5-36.5); Mean Corpuscular Volume 106 fL (80-100); NEUTROPHILS PERCENT AUTO 62 % (41-73); Platelet Count 310 K/mm3 (150-400); Red Blood Cell Count 3.44 M/mm3 (3.80-5.20); White Blood Cell Count 10.68 K/mm3 (4.00-11.30)
[2023-02-12 15:10] LABS: C-REACTIVE PROTEIN, EXT RANGE 1.23 mg/dL (0.000-0.300)
[2023-02-12 15:12] LABS: Albumin/Globulin Ratio 0.8 (0.8-1.8); Bilirubin, Total 0.3 mg/dL (0.1-1.0); Bun/Creatinine Ratio 21.2 (12.0-20.0); Calcium, Blood 8.1 mg/dL (8.5-10.1); Creatinine, Blood 0.85 mg/dL (0.40-1.00); Globulin, Blood 3.8 g/dL (2.2-4.0); Potassium, Blood 3.9 mmol/L (3.5-5.5); Total Protein, Blood 6.8 g/dL (6.4-8.2)
== END | disposition home or self-care (01) ==
LOC: LAB 13:00 → LAB SHORT 13:00
PROVIDERS: Internal Medicine
DX: M46.36 Infection of intervertebral disc (pyogenic), lumbar region (principal); M46.26 Osteomyelitis of vertebra, lumbar region; C50.919 Malignant neoplasm of unspecified site of unspecified female breast
CPT/HCPCS: 80053; 85025; 85651; 86140

== ENCOUNTER 2023-02-17 09:54 | Day surgery (SDC) | payer MEDICARE ==
[~2023-02-17 09:54] MED LIST changes: +Vancomycin1 GM/2501 IV
[2023-02-17 10:15] VITALS: BP 126/57
== END 2023-02-17 11:59 | disposition home or self-care (01) ==
LOC: ATC 09:54
DX: M46.26 Osteomyelitis of vertebra, lumbar region (principal); K21.9 Gastro-esophageal reflux disease without esophagitis; I10 Essential (primary) hypertension; Z85.3 Personal history of malignant neoplasm of breast; E78.5 Hyperlipidemia, unspecified
CPT/HCPCS: 96365; 96366; J3370; J7050

== ENCOUNTER 2023-02-18 00:17 | Day surgery (SDC) | payer MEDICARE ==
[2023-02-18 08:43] VITALS: BP 129/66
[2023-02-18 09:13] LABS: Vancomycin, Trough 15.6 ug/mL (5.0-10.0)
== END 2023-02-18 11:03 | disposition home or self-care (01) ==
LOC: ATC 00:17
PROVIDERS: Internal Medicine
DX: M46.26 Osteomyelitis of vertebra, lumbar region (principal); K21.9 Gastro-esophageal reflux disease without esophagitis; I10 Essential (primary) hypertension; E78.5 Hyperlipidemia, unspecified; G89.4 Chronic pain syndrome; Z88.0 Allergy status to penicillin; Z79.899 Other long term (current) drug therapy
CPT/HCPCS: 80202; 82565; 96365; J3370; J7050

== ENCOUNTER 2023-02-19 00:51 | Day surgery (SDC) | payer MEDICARE ==
[2023-02-19 10:13] VITALS: BP 116/60
== END 2023-02-19 11:33 | disposition home or self-care (01) ==
LOC: ATC 00:51
DX: M46.26 Osteomyelitis of vertebra, lumbar region (principal); I10 Essential (primary) hypertension; K21.9 Gastro-esophageal reflux disease without esophagitis; E78.5 Hyperlipidemia, unspecified; G89.4 Chronic pain syndrome; Z88.0 Allergy status to penicillin; Z79.899 Other long term (current) drug therapy
CPT/HCPCS: 96365; 96368; J0696; J3370; J7050

== ENCOUNTER 2023-02-20 00:06 | Day surgery (SDC) | payer MEDICARE ==
[2023-02-20 09:54] VITALS: BP 122/58
[2023-02-20 10:33] LABS: Creatinine, Blood 0.97 mg/dL (0.40-1.00); Vancomycin, Trough 21.3 ug/mL (5.0-10.0)
== END 2023-02-20 11:46 | disposition home or self-care (01) ==
LOC: ATC 00:06
PROVIDERS: Internal Medicine
DX: M46.26 Osteomyelitis of vertebra, lumbar region (principal); I10 Essential (primary) hypertension; K21.9 Gastro-esophageal reflux disease without esophagitis; E78.5 Hyperlipidemia, unspecified; G89.4 Chronic pain syndrome; Z88.0 Allergy status to penicillin; Z79.899 Other long term (current) drug therapy
CPT/HCPCS: 80202; 82565; 96365; 96367; J0696; J3370

== ENCOUNTER 2023-02-21 01:21 | Day surgery (SDC) | payer MEDICARE ==
[2023-02-21 09:59] VITALS: BP 126/54
== END 2023-02-21 10:54 | disposition home or self-care (01) ==
LOC: ATC 01:21
DX: M46.26 Osteomyelitis of vertebra, lumbar region (principal); I10 Essential (primary) hypertension; E78.5 Hyperlipidemia, unspecified; K21.9 Gastro-esophageal reflux disease without esophagitis; G89.4 Chronic pain syndrome; Z88.0 Allergy status to penicillin; Z79.899 Other long term (current) drug therapy
CPT/HCPCS: J0696; J3370

== ENCOUNTER 2023-02-22 00:54 | Day surgery (SDC) | payer MEDICARE ==
[2023-02-22 10:09] VITALS: BP 133/66
[2023-02-22 10:17] LABS: BASOPHILS ABSOLUTE AUTO 0.04 K/mm3 (0.00-0.23); BASOPHILS PERCENT AUTO 0 % (0-2); EOSINOPHILS ABSOLUTE AUTO 0.11 K/mm3 (0.00-0.68); EOSINOPHILS PERCENT AUTO 1 % (0-6); Hematocrit 36.5 % (33.0-51.0); Hemoglobin 11.8 g/dL (11.5-16.0); IMMATURE GRAN ABSOLUTE AUTO 0.09 K/mm3 (0.00-0.10); IMMATURE GRAN PERCENT AUTO 1 % (0-1); LYMPHOCYTES ABSOLUTE AUTO 1.79 K/mm3 (0.84-5.20); LYMPHOCYTES PERCENT AUTO 16 % (21-46); MONOCYTES ABSOLUTE AUTO 1.05 K/mm3 (0.16-1.47); MONOCYTES PERCENT AUTO 9 % (4-13); Mean Corpuscular HGB Conc 32.3 g/dL (31.5-36.5); Mean Corpuscular Volume 105 fL (80-100); Mean Platelet Volume 8.7 fL (9.1-12.4); NEUTROPHILS PERCENT AUTO 73 % (41-73); Platelet Count 253 K/mm3 (150-400); RDW Coefficient Variation 14.6 % (11.7-14.2); RDW Standard Deviation 56.6 fL (35.1-46.3); Red Blood Cell Count 3.47 M/mm3 (3.80-5.20); White Blood Cell Count 11.28 K/mm3 (4.00-11.30)
--- NOTE | 2023-02-22 11:35 | NUR ---
RECEIVED ORDERS TO HOLD VANCO DOSE FOR TODAY. REDRAW TOMORROW.
[2023-02-22 13:49] LABS: Vancomycin, Trough 18.3 ug/mL (5.0-10.0)
[2023-02-22 17:10] LABS: Albumin, Blood 3.2 g/dL (3.4-5.0); Albumin/Globulin Ratio 0.8 (0.8-1.8); Bilirubin, Total 0.4 mg/dL (0.1-1.0); Calcium, Blood 8.9 mg/dL (8.5-10.1); Creatinine, Blood 0.91 mg/dL (0.40-1.00); Globulin, Blood 3.9 g/dL (2.2-4.0); Potassium, Blood 4.9 mmol/L (3.5-5.5); Total Protein, Blood 7.1 g/dL (6.4-8.2)
== END 2023-02-22 11:30 | disposition home or self-care (01) ==
LOC: ATC 00:54
PROVIDERS: Internal Medicine
DX: M46.26 Osteomyelitis of vertebra, lumbar region (principal); M46.30 Infection of intervertebral disc (pyogenic), site unspecified; Z88.0 Allergy status to penicillin; I10 Essential (primary) hypertension; K21.9 Gastro-esophageal reflux disease without esophagitis; E78.5 Hyperlipidemia, unspecified
CPT/HCPCS: 80053; 80202; 85025; 85651; 86140; 96365; J0696

== ENCOUNTER 2023-02-23 01:17 | Day surgery (SDC) | payer MEDICARE ==
--- NOTE | 2023-02-23 09:51 | NUR ---
Pt's vanco trough level and creatinine from yesterday discussed with Cory Aviles, pharm D. Plan will be to continue with vanco 1 gram IV daily. Vanco trough and creat will be draw on 02/25/23 before her dose instead of being redrawn today.
[2023-02-23 14:03] VITALS: BP 133/68
== END 2023-02-23 14:57 | disposition home or self-care (01) ==
LOC: ATC 01:17
DX: M46.26 Osteomyelitis of vertebra, lumbar region (principal); Z88.0 Allergy status to penicillin; I10 Essential (primary) hypertension; E78.5 Hyperlipidemia, unspecified; M46.30 Infection of intervertebral disc (pyogenic), site unspecified
CPT/HCPCS: 96365; 96368; J0696; J3370

== ENCOUNTER 2023-02-25 00:43 | Day surgery (SDC) | payer MEDICARE ==
[2023-02-25 10:27] LABS: Creatinine, Blood 0.95 mg/dL (0.40-1.00); Vancomycin, Trough 19.3 ug/mL (5.0-10.0)
[2023-02-25 10:46] VITALS: BP 131/74
== END 2023-02-25 11:52 | disposition home or self-care (01) ==
LOC: ATC 00:43
PROVIDERS: Internal Medicine
DX: M46.26 Osteomyelitis of vertebra, lumbar region (principal); I10 Essential (primary) hypertension; K21.9 Gastro-esophageal reflux disease without esophagitis; E78.5 Hyperlipidemia, unspecified; Z88.0 Allergy status to penicillin
CPT/HCPCS: 80202; 82565; 96365; 96367; J0696; J3370

== ENCOUNTER 2023-02-26 02:10 | Day surgery (SDC) | payer MEDICARE ==
[2023-02-26 13:23] VITALS: BP 141/80
== END 2023-02-26 14:21 | disposition home or self-care (01) ==
LOC: ATC 02:10
DX: M46.26 Osteomyelitis of vertebra, lumbar region (principal); M19.90 Unspecified osteoarthritis, unspecified site; I10 Essential (primary) hypertension; E78.5 Hyperlipidemia, unspecified; K21.9 Gastro-esophageal reflux disease without esophagitis
CPT/HCPCS: 96365; 96368; J0696; J3370

== ENCOUNTER 2023-02-27 00:58 | Day surgery (SDC) | payer MEDICARE ==
[2023-02-27 13:30] VITALS: BP 126/63
== END 2023-02-27 14:35 | disposition home or self-care (01) ==
LOC: ATC 00:58
DX: M46.26 Osteomyelitis of vertebra, lumbar region (principal); Z88.0 Allergy status to penicillin; E78.5 Hyperlipidemia, unspecified; I10 Essential (primary) hypertension; K21.9 Gastro-esophageal reflux disease without esophagitis
CPT/HCPCS: 96365; 96368; J0696; J3370

== ENCOUNTER 2023-02-28 03:20 | Day surgery (SDC) | payer MEDICARE ==
[2023-02-28 14:05] VITALS: BP 124/73
[2023-02-28 14:08] LABS: Creatinine, Blood 0.92 mg/dL (0.40-1.00); Vancomycin, Trough 16.4 ug/mL (5.0-10.0)
== END 2023-02-28 15:33 | disposition home or self-care (01) ==
LOC: ATC 03:20
PROVIDERS: Internal Medicine
DX: M46.26 Osteomyelitis of vertebra, lumbar region (principal); I10 Essential (primary) hypertension; E78.5 Hyperlipidemia, unspecified; K21.9 Gastro-esophageal reflux disease without esophagitis; Z88.0 Allergy status to penicillin; Z76.89 Persons encountering health services in other specified circumstances; Z79.899 Other long term (current) drug therapy
CPT/HCPCS: 80202; 82565; 96365; 96367; J0696; J3370

== ENCOUNTER 2023-03-01 08:46 | Day surgery (SDC) | payer MEDICARE ==
[2023-03-01 13:47] VITALS: BP 135/73
== END 2023-03-01 14:47 | disposition home or self-care (01) ==
LOC: ATC 08:46
DX: M46.26 Osteomyelitis of vertebra, lumbar region (principal); I10 Essential (primary) hypertension; E78.5 Hyperlipidemia, unspecified; K21.9 Gastro-esophageal reflux disease without esophagitis
CPT/HCPCS: 96365; 96368; J0696; J3370

== ENCOUNTER 2023-03-02 00:37 | Day surgery (SDC) | payer MEDICARE ==
[2023-03-02 13:54] VITALS: BP 156/75
== END 2023-03-02 14:54 | disposition home or self-care (01) ==
LOC: ATC 00:37
DX: M46.26 Osteomyelitis of vertebra, lumbar region (principal); I10 Essential (primary) hypertension; K21.9 Gastro-esophageal reflux disease without esophagitis; E78.5 Hyperlipidemia, unspecified; M19.90 Unspecified osteoarthritis, unspecified site
CPT/HCPCS: 96365; 96368; J0696; J3370

== ENCOUNTER 2023-03-03 01:09 | Day surgery (SDC) | payer MEDICARE ==
[2023-03-03 13:33] VITALS: BP 138/72
[2023-03-03 14:31] LABS: Creatinine, Blood 1.03 mg/dL (0.40-1.00); Vancomycin, Trough 16.5 ug/mL (5.0-10.0)
== END 2023-03-03 15:41 | disposition home or self-care (01) ==
LOC: ATC 01:09
PROVIDERS: Internal Medicine
DX: M46.26 Osteomyelitis of vertebra, lumbar region (principal); G89.29 Other chronic pain; M54.9 Dorsalgia, unspecified; I10 Essential (primary) hypertension; K21.9 Gastro-esophageal reflux disease without esophagitis; E78.5 Hyperlipidemia, unspecified; Z76.89 Persons encountering health services in other specified circumstances; Z88.0 Allergy status to penicillin
CPT/HCPCS: 80202; 82565; 96365; 96367; J0696; J3370

== ENCOUNTER 2023-03-04 01:49 | Day surgery (SDC) | payer MEDICARE ==
[2023-03-04 14:01] VITALS: BP 144/69
== END 2023-03-04 15:03 | disposition home or self-care (01) ==
LOC: ATC 01:49
DX: M46.26 Osteomyelitis of vertebra, lumbar region (principal); E78.5 Hyperlipidemia, unspecified; M19.90 Unspecified osteoarthritis, unspecified site; I10 Essential (primary) hypertension; K21.9 Gastro-esophageal reflux disease without esophagitis
CPT/HCPCS: 96365; 96368; J0696; J3370

== ENCOUNTER 2023-03-05 09:48 | Day surgery (SDC) | payer MEDICARE ==
[2023-03-05 10:04] VITALS: BP 135/73
== END 2023-03-05 11:45 | disposition home or self-care (01) ==
LOC: ATC 09:48
DX: E11.69 Type 2 diabetes mellitus with other specified complication (principal); M46.26 Osteomyelitis of vertebra, lumbar region; I10 Essential (primary) hypertension; E78.5 Hyperlipidemia, unspecified; K21.9 Gastro-esophageal reflux disease without esophagitis; Z88.0 Allergy status to penicillin; Z79.899 Other long term (current) drug therapy
CPT/HCPCS: 36593; 96365; 96368; J0696; J2997; J3370

== ENCOUNTER 2023-03-06 09:46 | Day surgery (SDC) | payer MEDICARE ==
[2023-03-06 09:49] VITALS: BP 128/61
[2023-03-06 10:32] LABS: Creatinine, Blood 0.97 mg/dL (0.40-1.00)
== END 2023-03-06 11:42 | disposition home or self-care (01) ==
LOC: ATC 09:46
PROVIDERS: Internal Medicine
DX: E11.69 Type 2 diabetes mellitus with other specified complication (principal); M46.26 Osteomyelitis of vertebra, lumbar region; I10 Essential (primary) hypertension; K21.9 Gastro-esophageal reflux disease without esophagitis; E78.5 Hyperlipidemia, unspecified; Z88.0 Allergy status to penicillin; Z79.899 Other long term (current) drug therapy
CPT/HCPCS: 80202; 82565; 96365; 96367; J0696; J3370

== ENCOUNTER 2023-03-07 01:02 | Day surgery (SDC) | payer MEDICARE ==
[2023-03-07 10:25] VITALS: BP 97/75
[2023-03-07 10:52] LABS: BASOPHILS ABSOLUTE AUTO 0.05 K/mm3 (0.00-0.23); BASOPHILS PERCENT AUTO 0 % (0-2); EOSINOPHILS ABSOLUTE AUTO 0.18 K/mm3 (0.00-0.68); EOSINOPHILS PERCENT AUTO 1 % (0-6); Hematocrit 38.4 % (33.0-51.0); Hemoglobin 12.3 g/dL (11.5-16.0); IMMATURE GRAN ABSOLUTE AUTO 0.16 K/mm3 (0.00-0.10); IMMATURE GRAN PERCENT AUTO 1 % (0-1); LYMPHOCYTES ABSOLUTE AUTO 2.03 K/mm3 (0.84-5.20); LYMPHOCYTES PERCENT AUTO 13 % (21-46); MONOCYTES ABSOLUTE AUTO 1.45 K/mm3 (0.16-1.47); MONOCYTES PERCENT AUTO 9 % (4-13); Mean Corpuscular HGB 34.2 pg (26.0-34.0); Mean Corpuscular Volume 107 fL (80-100); NEUTROPHILS ABSOLUTE AUTO 11.55 K/mm3 (1.96-9.15); NEUTROPHILS PERCENT AUTO 75 % (41-73); Platelet Count 307 K/mm3 (150-400); RDW Coefficient Variation 14.2 % (11.7-14.2); RDW Standard Deviation 55.8 fL (35.1-46.3); White Blood Cell Count 15.42 K/mm3 (4.00-11.30)
[2023-03-07 11:10] LABS: Albumin, Blood 3.1 g/dL (3.4-5.0); Albumin/Globulin Ratio 0.8 (0.8-1.8); Bilirubin, Total 0.4 mg/dL (0.1-1.0); Bun/Creatinine Ratio 17.2 (12.0-20.0); C-REACTIVE PROTEIN, EXT RANGE 1.17 mg/dL (0.000-0.300); Calcium, Blood 8.8 mg/dL (8.5-10.1); Creatinine, Blood 0.93 mg/dL (0.40-1.00); Globulin, Blood 3.7 g/dL (2.2-4.0); Potassium, Blood 4.2 mmol/L (3.5-5.5); Total Protein, Blood 6.8 g/dL (6.4-8.2)
== END 2023-03-07 11:22 | disposition home or self-care (01) ==
LOC: ATC 01:02
PROVIDERS: Internal Medicine
DX: M46.26 Osteomyelitis of vertebra, lumbar region (principal); I10 Essential (primary) hypertension; E78.5 Hyperlipidemia, unspecified; K21.9 Gastro-esophageal reflux disease without esophagitis; G89.4 Chronic pain syndrome; Z79.899 Other long term (current) drug therapy
CPT/HCPCS: 80053; 85025; 85651; 86140; 96365; 96368; J0696; J3370

== ENCOUNTER 2023-03-08 02:05 | Day surgery (SDC) | payer MEDICARE ==
[2023-03-08 10:03] VITALS: BP 148/65
== END 2023-03-08 11:03 | disposition home or self-care (01) ==
LOC: ATC 02:05
DX: M46.26 Osteomyelitis of vertebra, lumbar region (principal); Z88.0 Allergy status to penicillin
CPT/HCPCS: 96365; 96368; J0696; J3370

== ENCOUNTER 2023-03-09 04:27 | Day surgery (SDC) | payer MEDICARE ==
[2023-03-09 10:41] VITALS: BP 128/67
[2023-03-09 10:41] LABS: Creatinine, Blood 0.98 mg/dL (0.40-1.00)
== END 2023-03-09 11:50 | disposition home or self-care (01) ==
LOC: ATC 04:27
PROVIDERS: Internal Medicine
DX: M46.26 Osteomyelitis of vertebra, lumbar region (principal); I10 Essential (primary) hypertension; K21.9 Gastro-esophageal reflux disease without esophagitis; E78.5 Hyperlipidemia, unspecified; Z88.0 Allergy status to penicillin; Z79.899 Other long term (current) drug therapy
CPT/HCPCS: 80202; 82565; 96365; 96367; J0696; J3370

== ENCOUNTER 2023-03-10 02:19 | Day surgery (SDC) | payer MEDICARE ==
[2023-03-10 10:04] VITALS: BP 127/61
== END 2023-03-10 11:03 | disposition home or self-care (01) ==
LOC: ATC 02:19
DX: M46.26 Osteomyelitis of vertebra, lumbar region (principal); I10 Essential (primary) hypertension; K21.9 Gastro-esophageal reflux disease without esophagitis; E78.5 Hyperlipidemia, unspecified; G89.4 Chronic pain syndrome; Z88.0 Allergy status to penicillin; Z79.899 Other long term (current) drug therapy
CPT/HCPCS: 96365; 96368; J0696; J3370

== ENCOUNTER 2023-03-11 00:19 | Day surgery (SDC) | payer MEDICARE ==
[2023-03-11 09:58] VITALS: BP 134/95
== END 2023-03-11 11:04 | disposition home or self-care (01) ==
LOC: ATC 00:19
DX: M46.26 Osteomyelitis of vertebra, lumbar region (principal); M19.90 Unspecified osteoarthritis, unspecified site; K57.30 Diverticulosis of large intestine without perforation or abscess without bleeding; K21.9 Gastro-esophageal reflux disease without esophagitis; E78.5 Hyperlipidemia, unspecified
CPT/HCPCS: 96365; 96368; J0696; J3370

== ENCOUNTER 2023-03-12 02:43 | Day surgery (SDC) | payer MEDICARE ==
[2023-03-12 09:18] VITALS: BP 114/52
[2023-03-12 10:00] LABS: Creatinine, Blood 1.02 mg/dL (0.40-1.00); Vancomycin, Trough 16.2 ug/mL (5.0-10.0)
== END 2023-03-12 11:10 | disposition home or self-care (01) ==
LOC: ATC 02:43
PROVIDERS: Internal Medicine
DX: M46.26 Osteomyelitis of vertebra, lumbar region (principal); I10 Essential (primary) hypertension; E78.5 Hyperlipidemia, unspecified; K21.9 Gastro-esophageal reflux disease without esophagitis
CPT/HCPCS: 80202; 82565; 96365; 96367; J0696; J3370

== ENCOUNTER 2023-03-13 09:38 | Day surgery (SDC) | payer MEDICARE ==
[2023-03-13 10:00] VITALS: BP 133/55
[2023-03-13 10:16] LABS: BASOPHILS ABSOLUTE AUTO 0.04 K/mm3 (0.00-0.23); BASOPHILS PERCENT AUTO 0 % (0-2); EOSINOPHILS ABSOLUTE AUTO 0.17 K/mm3 (0.00-0.68); EOSINOPHILS PERCENT AUTO 1 % (0-6); Hematocrit 39.8 % (33.0-51.0); Hemoglobin 12.4 g/dL (11.5-16.0); IMMATURE GRAN ABSOLUTE AUTO 0.09 K/mm3 (0.00-0.10); IMMATURE GRAN PERCENT AUTO 1 % (0-1); LYMPHOCYTES ABSOLUTE AUTO 1.61 K/mm3 (0.84-5.20); LYMPHOCYTES PERCENT AUTO 12 % (21-46); MONOCYTES ABSOLUTE AUTO 1.02 K/mm3 (0.16-1.47); MONOCYTES PERCENT AUTO 8 % (4-13); Mean Corpuscular HGB 33.5 pg (26.0-34.0); Mean Corpuscular HGB Conc 31.2 g/dL (31.5-36.5); Mean Corpuscular Volume 108 fL (80-100); Mean Platelet Volume 8.8 fL (9.1-12.4); NEUTROPHILS ABSOLUTE AUTO 10.72 K/mm3 (1.96-9.15); NEUTROPHILS PERCENT AUTO 79 % (41-73); Platelet Count 296 K/mm3 (150-400); RDW Coefficient Variation 13.9 % (11.7-14.2); RDW Standard Deviation 54.9 fL (35.1-46.3); White Blood Cell Count 13.65 K/mm3 (4.00-11.30)
[2023-03-13 10:35] LABS: Bun/Creatinine Ratio 15.9 (12.0-20.0); C-REACTIVE PROTEIN, EXT RANGE 2.89 mg/dL (0.000-0.300); Calcium, Blood 8.6 mg/dL (8.5-10.1); Creatinine, Blood 0.94 mg/dL (0.40-1.00); Potassium, Blood 3.7 mmol/L (3.5-5.5)
== END 2023-03-13 10:55 | disposition home or self-care (01) ==
LOC: ATC 09:38
PROVIDERS: Internal Medicine
DX: M46.26 Osteomyelitis of vertebra, lumbar region (principal); K21.9 Gastro-esophageal reflux disease without esophagitis; I10 Essential (primary) hypertension; E78.5 Hyperlipidemia, unspecified; M19.90 Unspecified osteoarthritis, unspecified site
CPT/HCPCS: 80048; 85025; 85651; 86140; 96365; 96368; J0696; J3370

== ENCOUNTER 2023-03-17 02:20 | Day surgery (SDC) | payer MEDICARE ==
[2023-03-17 13:35] VITALS: BP 122/60
== END 2023-03-17 14:40 | disposition home or self-care (01) ==
LOC: ATC 02:20
DX: M46.26 Osteomyelitis of vertebra, lumbar region (principal); I10 Essential (primary) hypertension; K21.9 Gastro-esophageal reflux disease without esophagitis; E78.5 Hyperlipidemia, unspecified; G89.4 Chronic pain syndrome; Z88.0 Allergy status to penicillin; Z79.899 Other long term (current) drug therapy
CPT/HCPCS: 96365; J3370

== ENCOUNTER 2023-03-19 02:36 | Day surgery (SDC) | payer MEDICARE ==
[2023-03-19 09:59] VITALS: BP 121/74
--- NOTE | 2023-03-19 10:58 | NUR ---
END TIME: 0269
== END 2023-03-20 22:47 | disposition home or self-care (01) ==
LOC: ATC 02:36
DX: M46.26 Osteomyelitis of vertebra, lumbar region (principal)
CPT/HCPCS: J3370

== ENCOUNTER 2024-09-28 10:56 | Emergency (ER) | payer OTHER ==
[~2024-09-28] VITALS: Ht 167.6 cm; Wt 90.7 kg
[2024-09-28] MEDS ORDERED: Ipratropium/Albuterol SulF 2.5-0.5MG/3 ML Amp INH PRN (11:30)
[2024-09-28 11:34] LABS: BASOPHILS ABSOLUTE AUTO 0.08 K/mm3 (0.00-0.23); BASOPHILS PERCENT AUTO 0 % (0-2); EOSINOPHILS ABSOLUTE AUTO 0.13 K/mm3 (0.00-0.68); EOSINOPHILS PERCENT AUTO 1 % (0-6); Hematocrit 37.8 % (33.0-51.0); Hemoglobin 12.5 g/dL (11.5-16.0); IMMATURE GRAN ABSOLUTE AUTO 0.16 K/mm3 (0.00-0.10); IMMATURE GRAN PERCENT AUTO 1 % (0-1); LYMPHOCYTES ABSOLUTE AUTO 2.72 K/mm3 (0.84-5.20); LYMPHOCYTES PERCENT AUTO 13 % (21-46); MONOCYTES ABSOLUTE AUTO 0.93 K/mm3 (0.16-1.47); MONOCYTES PERCENT AUTO 4 % (4-13); Mean Corpuscular HGB 34.2 pg (26.0-34.0); Mean Corpuscular HGB Conc 33.1 g/dL (31.5-36.5); Mean Corpuscular Volume 103 fL (80-100); Mean Platelet Volume 9.2 fL (9.1-12.4); NEUTROPHILS ABSOLUTE AUTO 17.24 K/mm3 (1.96-9.15); NEUTROPHILS PERCENT AUTO 81 % (41-73); Platelet Count 446 K/mm3 (150-400); RDW Coefficient Variation 13.4 % (11.7-14.2); RDW Standard Deviation 51.3 fL (35.1-46.3); Red Blood Cell Count 3.66 M/mm3 (3.80-5.20); White Blood Cell Count 21.26 K/mm3 (4.00-11.30)
[2024-09-28 11:56] LABS: Albumin, Blood 2.7 g/dL (3.4-5.0); Albumin/Globulin Ratio 0.5 (0.8-1.8); Bilirubin, Total 0.7 mg/dL (0.1-1.0); Bun/Creatinine Ratio 19.5 (12.0-20.0); Calcium, Blood 8.3 mg/dL (8.5-10.1); Creatinine, Blood 0.72 mg/dL (0.40-1.00); Potassium, Blood 4.5 mmol/L (3.5-5.5); Total Protein, Blood 7.7 g/dL (6.4-8.2)
[2024-09-28] MEDS ORDERED: HYDROCODONE-AC1 EAC7 PO (12:29)
[2024-09-28] MEDS ORDERED: NYSTATIN15 GM TOP (12:31)
[2024-09-28] MEDS ORDERED: VITAMIN D310 MC4 PO (12:33)
[2024-09-28] MEDS ORDERED: NALOXONE HCL4 MG (12:34)
[2024-09-28] MEDS ORDERED: HYDROcodone 10-APAP 325 TAB PO ONE (12:50)
[2024-09-28] MEDS ORDERED: PredniSONE 20 MG Tab PO ONE (12:55)
[2024-09-28] MEDS ORDERED: Doxycycline Hyclate 100 MG TAB PO ONE (13:45)
[2024-09-28] MEDS ORDERED: OXYC5 PO (13:47)
[2024-09-28] MEDS ORDERED: Deltasone 10 mg10 MG PO (13:47)
[2024-09-28] MEDS ORDERED: DOXY100 PO (13:47)
[2024-09-28 14:00] VITALS: BP 105/74
== END 2024-09-28 14:08 | disposition home or self-care (01) ==
LOC: ER 10:56
PROVIDERS: Emergency Medicine
DX: J18.9 Pneumonia, unspecified organism (principal); J98.4 Other disorders of lung; R09.1 Pleurisy; I10 Essential (primary) hypertension; E78.5 Hyperlipidemia, unspecified; K21.9 Gastro-esophageal reflux disease without esophagitis; Z88.0 Allergy status to penicillin; Z91.048 Other nonmedicinal substance allergy status; Z79.811 Long term (current) use of aromatase inhibitors; Z16.22 Resistance to vancomycin related antibiotics; Z79.899 Other long term (current) drug therapy; Z79.83 Long term (current) use of bisphosphonates; Z79.1 Long term (current) use of non-steroidal anti-inflammatories (NSAID)
CPT/HCPCS: 36415; 71046; 80053; 83880; 84484; 85025; 93005; 93010; 94640; 94664; 99285-25; A9270; J7512

== ENCOUNTER 2024-10-28 19:00 | Emergency (ER) | payer OTHER ==
[~2024-10-28] VITALS: Ht 170.2 cm; Wt 72.1 kg
[~2024-10-28 19:00] MED LIST changes: +DOXY100 PO; +Deltasone 10 mg10 MG PO; +HYDROCODONE-AC1 EAC7 PO; +NALOXONE HCL4 MG; +NYSTATIN15 GM TOP; +OXYC5 PO; +VITAMIN D310 MC4 PO
[2024-10-28 19:10] VITALS: BP 167/88
[2024-10-28] MEDS ORDERED: Amoxicillin/Clavulanate K 875 MG Tab PO ONE (20:40)
[2024-10-28] MEDS ORDERED: Azithromycin 250 MG Tab PO ONE (21:00)
[2024-10-28] MEDS ORDERED: AZIT250 PO (21:03)
== END 2024-10-28 21:35 | disposition home or self-care (01) ==
LOC: ER 19:00
DX: S51.812A Laceration without foreign body of left forearm, initial encounter (principal); I10 Essential (primary) hypertension; E78.5 Hyperlipidemia, unspecified; K21.9 Gastro-esophageal reflux disease without esophagitis; W54.1XXA Struck by dog, initial encounter; Z88.0 Allergy status to penicillin; Z91.09 Other allergy status, other than to drugs and biological substances; Z79.899 Other long term (current) drug therapy; Z79.52 Long term (current) use of systemic steroids
CPT/HCPCS: 12002; 99282-25; A9270